=== PATIENT | female | born 1960 | race American Indian/Alaskan Native ===

== ENCOUNTER 2018-01-26 04:21 | Emergency (ER) | payer MEDICARE ==
[2018-01-26 05:03] LABS: Basophils # (Auto) 0.1 K/mm3 (0.0-0.1); Basophils % (Auto) 0.6 % (0.0-1.8); Eosinophils # (Auto) 0.1 K/mm3 (0.0-0.4); Eosinophils % (Auto) 0.8 % (0.0-4.3); Hematocrit 45.1 % (30.3-42.9); Hemoglobin 15.5 gm/dl (10.1-14.3); Lymphocytes # (Auto) 3.6 K/mm3 (1.2-5.4); Lymphocytes % (Auto) 41.4 % (13.4-35.0); Mean Corpuscular HGB Conc 34 % (30-34); Mean Corpuscular Hemoglobin 35 pg (28-32); Mean Corpuscular Volume 101 fl (79-97); Monocytes # (Auto) 0.7 K/mm3 (0.0-0.8); Monocytes % (Auto) 8.4 % (0.0-7.3); Platelet Count 195 K/mm3 (140-440); Red Blood Count 4.47 M/mm3 (3.65-5.03); Red Cell Distribution Width 14.7 % (13.2-15.2)
[2018-01-26 05:35] LABS: BUN/Creatinine Ratio 30; Blood Urea Nitrogen 15 mg/dL (7-17); Calcium 8.7 mg/dL (8.4-10.2); Hemolysis Index 35
--- NOTE | 2018-01-26 05:36 | XRay Report ---
FINAL REPORT EXAM: XR CHEST ROUTINE 2V HISTORY: ingestion TECHNIQUE: PA and lateral chest radiographs PRIORS: None. FINDINGS: No mediastinal shift. Cardiac silhouette is not enlarged. No pneumothorax, effusion, or focal pulmonary opacity. No radiodense foreign body. No acute skeletal finding. IMPRESSION: No acute pulmonary finding. Consider additional imaging for worsening/persistent symptoms.
[2018-01-26 06:14] LABS: Bilirubin,Urine NEG (Negative); Blood,Urine NEG (Negative); Color,Urine Yellow (Yellow); Protein,Urine <15 mg/dL mg/dL (Negative)
[2018-01-26 06:15] LABS: Amphetamine Screen,Urine PRESUMPTIVE NEGATIVE; Benzodiazepines Screen,Urine PRESUMPTIVE NEGATIVE; Cannabinoid Screen,Urine PRESUMPTIVE NEGATIVE; Cocaine Screen,Urine PRESUMPTIVE NEGATIVE; Methadone Screen,Urine PRESUMPTIVE NEGATIVE; Opiate Screen,Urine PRESUMPTIVE NEGATIVE
--- NOTE | 2018-01-26 06:38 | Emergency Department Report ---
ED Psych HPI - General Chief Complaint: Psych Stated Complaint: SUICIDAL Time Seen by Provider: 01/26/18 06:18 Source: EMS Mode of arrival: Ambulatory Limitations: No Limitations - History of Present Illness Initial Comments: Patient is a 57-year-old female presents emergency room with a intentional overdose with ammonia. Patient states that she accidentally drank took a drink of ammonia. Patient states she has been depressed lately. However at this time patient denies suicidal or homicidal ideations. Per patient's patient's states that she did state that she wanted to kill herself just prior to drinking the ammonia. Patient also states she knew the ammonia could hurt her but drank it anyway. Patient states she is unaware of the amount of ammonia ingested but states his only a mouthful. Patient complains of throat pain. Patient states her throat pain is a 4 out of 10. Patient states she drank 2 glasses of wine just prior to drinking the ammonia. MD Complaint: feels depressed, other -: Sudden Associated Psychiatric Symptoms: depression, suicidal ideation History of same: No Quality: intermittent Improves With: therapy Worsens With: achohol Context: recent alcohol abuse Associated Symptoms: denies other symptoms Treatments Prior to Arrival: placed on mental he - Related Data Home Medications Medication Instructions Recorded Confirmed Last Taken Bupropion HCl [buPROPion] 450 mg PO DAILY 11/18/14 02/28/16 11/17/14 Diazepam Tab [Valium] 2 mg PO DAILY 11/18/14 02/28/16 11/17/14 Dicyclomine [Bentyl] 20 mg PO QID 11/18/14 02/28/16 11/17/14 Trazodone HCl [traZODone] 300 mg PO QHS 11/18/14 02/28/16 11/17/14 Venlafaxine HCl [Venlafaxine ER] 150 mg PO QDAY 11/18/14 02/28/16 11/17/14 Previous Rx's Medication Instructions Recorded Last Taken Type Carvedilol [Coreg] 12.5 mg PO BID #60 tablet 11/21/14 Unknown Rx Pantoprazole [Protonix] 40 mg PO QDAY #30 tablet 11/21/14 Unknown Rx amLODIPine [Norvasc] 5 mg PO QDAY #30 tablet 11/21/14 Unknown Rx Triamter/Hctz 75-50 mg (Nf) 1 tab PO QDAY #30 tablet 02/28/16 Unknown Rx [Maxzide 75-50 mg] Allergies Allergy/AdvReac Type Severity Reaction Status Date / Time No Known Allergies Allergy Unverified 11/18/14 11:24 ED Review of Systems ROS: Stated complaint: SUICIDAL Other details as noted in HPI Constitutional: denies: chills, fever Eyes: denies: eye pain, eye discharge, vision change ENT: denies: ear pain, throat pain Respiratory: denies: cough, shortness of breath, wheezing Cardiovascular: denies: chest pain, palpitations Endocrine: no symptoms reported Gastrointestinal: denies: abdominal pain, nausea, diarrhea Genitourinary: denies: urgency, dysuria, discharge Musculoskeletal: denies: back pain, joint swelling, arthralgia Skin: denies: rash, lesions Neurological: denies: headache, weakness, paresthesias Psychiatric: denies: anxiety, depression Hematological/Lymphatic: denies: easy bleeding, easy bruising ED Past Medical Hx - Past Medical History Previous Medical History?: Yes Hx Hypertension: Yes Hx Congestive Heart Failure: No Hx Liver Disease: Yes (hepatitis C) Hx Psychiatric Treatment: Yes (depression) Hx Asthma: No - Surgical History Past Surgical History?: Yes Additional Surgical History: hysterectomy - Family History Family history: no significant - Social History Smoking Status: Current Every Day Smoker Substance Use Type: Alcohol - Medications Home Medications: Home Medications Medication Instructions Recorded Confirmed Last Taken Type Bupropion HCl [buPROPion] 450 mg PO DAILY 11/18/14 02/28/16 11/17/14 History Diazepam Tab [Valium] 2 mg PO DAILY 11/18/14 02/28/16 11/17/14 History Dicyclomine [Bentyl] 20 mg PO QID 11/18/14 02/28/16 11/17/14 History Trazodone HCl [traZODone] 300 mg PO QHS 11/18/14 02/28/16 11/17/14 History Venlafaxine HCl [Venlafaxine ER] 150 mg PO QDAY 11/18/14 02/28/16 11/17/14 History Carvedilol [Coreg] 12.5 mg PO BID #60 tablet 11/21/14 02/28/16 Unknown Rx Pantoprazole [Protonix] 40 mg PO QDAY #30 tablet 11/21/14 02/28/16 Unknown Rx amLODIPine [Norvasc] 5 mg PO QDAY #30 tablet 11/21/14 02/28/16 Unknown Rx Triamter/Hctz 75-50 mg (Nf) 1 tab PO QDAY #30 tablet 02/28/16 Unknown Rx [Maxzide 75-50 mg] ED Physical Exam - General Limitations: No Limitations General appearance: alert, in no apparent distress - Head Head exam: Present: atraumatic, normocephalic - Eye Eye exam: Present: normal appearance - ENT ENT exam: Present: mucous membranes moist - Neck Neck exam: Present: normal inspection - Respiratory Respiratory exam: Present: normal lung sounds bilaterally. Absent: respiratory distress - Cardiovascular Cardiovascular Exam: Present: regular rate, normal rhythm. Absent: systolic murmur, diastolic murmur, rubs, gallop - GI/Abdominal GI/Abdominal exam: Present: soft, normal bowel sounds - Extremities Exam Extremities exam: Present: normal inspection - Back Exam Back exam: Present: normal inspection - Neurological Exam Neurological exam: Present: alert, oriented X3 - Psychiatric Psychiatric exam: Present: depressed - Skin Skin exam: Present: warm, dry, intact, normal color. Absent: rash ED Course Vital Signs 01/26/18 04:35 Temperature 98.7 F Pulse Rate 103 H Respiratory 17 Rate Blood Pressure 176/76 O2 Sat by Pulse 99 Oximetry - Reevaluation(s) Reevaluation #1: BRYNNSHAHZAD CANDELARIO Female : 1960 MedRec# [id number] 01/26/18 07:01 - Nurse Note by RUTH LAZAR Acct Num: [id number] : 1960 Patient Age: 57 Call Poison control, spoke with Kareem. Advised to do PO challenge. Initialized on 01/26/18 07:01 - END OF NOTE Above note reviewed from poison control. 01/26/18 07:10 ED Medical Decision Making - Lab Data Result diagrams: 01/26/18 04:50 01/26/18 04:50 - Medical Decision Making We'll medically clear patient and prepare patient for transport to a psychiatric facility. 1013 signed. - Differential Diagnosis suicide attempt. Depression. Anxiety. Alcohol abuse. Critical care attestation.: If time is entered above; I have spent that time in minutes in the direct care of this critically ill patient, excluding procedure time. ED Disposition Condition: Stable Referrals: MEGHANA THAO MD [Primary Care Provider] - 3-5 Days
[2018-01-26] MEDS ORDERED: NORVASC PO ONE (11:53)
--- NOTE | 2018-01-26 13:07 | Consultation ---
History of Present Illness - Reason for Consult Consult date: 01/26/18 Reason for consult: Mental Health Evaluation Requesting physician: NARCISO WHITTINGTON III - Chief Complaint Chief complaint: "I didn't mean it" - History of Present Psychiatric Illness 57-year-old female presents emergency room with a intentional overdose with ammonia. Today the patient is calm and cooperative during the assessment. She stated that she accidentally consumed the ammonia. Her answers to questions reference drinking ammonia were vague. She stated, "I want to go home." She did state having a hx of depression and see a psychiatrist. She stated taking antidepressants, but could not name them. Per the ER note, the patient's stated that the she meant to consume the ammonia. She stated feeling sad and depressed prior to her admission to the hospital. She denies SI/HI's and AVH's. She denies a poor appetite and erratic sleep. She denies recreational drug use and alcohol consumption (etoh). Her alcohol serum was 0.28 on admission. Medications and Allergies Allergies Allergy/AdvReac Type Severity Reaction Status Date / Time No Known Allergies Allergy Unverified 11/18/14 11:24 Home Medications Medication Instructions Recorded Confirmed Last Taken Type Bupropion HCl [buPROPion] 450 mg PO DAILY 11/18/14 01/26/18 2 Days Ago History ~01/24/18 450 MG Dicyclomine [Bentyl] 20 mg PO QID 11/18/14 01/26/18 2 Days Ago History ~01/24/18 20 Trazodone HCl [traZODone] 300 mg PO QHS 11/18/14 01/26/18 2 Days Ago History ~01/24/18 300 Venlafaxine HCl [Venlafaxine ER] 150 mg PO QDAY 11/18/14 01/26/18 2 Days Ago History ~01/24/18 1 Carvedilol [Coreg] 12.5 mg PO BID #60 tablet 11/21/14 01/26/18 2 Days Ago Rx ~01/24/18 12.5 MG Pantoprazole [Protonix] 40 mg PO QDAY #30 tablet 11/21/14 01/26/18 2 Days Ago Rx ~01/24/18 40 amLODIPine [Norvasc] 5 mg PO QDAY #30 tablet 11/21/14 01/26/18 2 Days Ago Rx ~01/24/18 5 Triamter/Hctz 75-50 mg (Nf) 1 tab PO QDAY #30 tablet 02/28/16 01/26/18 2 Days Ago Rx [Maxzide 75-50 mg] ~01/24/18 1 Past psychiatric history - Past Medical History Past Medical History: hypertension, other (Hep C) Past Surgical History: hysterectomy - past Psychiatric treatment and history Psych: Depression psychiatric treatment history: Seen outpatient for depression. She denies a fam psy hx. - Social History Social history: lives with family Mental Status Exam - Vital signs Last Vital Signs Temp 97.8 F 01/26/18 11:46 Pulse 97 H 01/26/18 11:46 Resp 18 01/26/18 11:46 BP 177/77 01/26/18 11:46 Pulse Ox 98 01/26/18 11:46 - Exam Narrative exam: MSE: Appearance: calm Behavior: regular eye contact Speech: regular rate and tone Mood: "okay" Affect: flat Thought Process: circumstantial Thought Content: denies SI/HI's and AVH's Motor Activity: sitting up in bed Cognition: A/O x3 Insight: variable Judgment: poor Results Result Diagrams: 01/26/18 04:50 01/26/18 04:50 Abnormal lab results 01/26/18 01/26/18 01/26/18 Range/Units 04:50 04:50 04:50 Hgb (10.1-14.3) gm/dl Hct (30.3-42.9) % MCV (79-97) fl MCH (28-32) pg Lymph % (Auto) (13.4-35.0) % Nash % (Auto) (0.0-7.3) % Creatinine 0.5 L (0.7-1.2) mg/dL Glucose 102 H (65-100) mg/dL Salicylates < 0.3 L (2.8-20.0) mg/dL Acetaminophen < 5.0 L (10.0-30.0) ug/mL Plasma/Serum Alcohol (0-0.07) % 01/26/18 01/26/18 Range/Units 04:50 04:50 Hgb 15.5 H (10.1-14.3) gm/dl Hct 45.1 H (30.3-42.9) % MCV 101 H (79-97) fl MCH 35 H (28-32) pg Lymph % (Auto) 41.4 H (13.4-35.0) % Nash % (Auto) 8.4 H (0.0-7.3) % Creatinine (0.7-1.2) mg/dL Glucose (65-100) mg/dL Salicylates (2.8-20.0) mg/dL Acetaminophen (10.0-30.0) ug/mL Plasma/Serum Alcohol 0.28 H (0-0.07) % All other labs normal. Assessment and Plan Assessment and plan: Impression: MDD, Recurrent, Severe Type. Alcohol Intoxication on admission. Alcohol Use DO. Today the patient is calm and cooperative during the assessment. The patient consumed ammonia intentionally. The patient minimizes her actions. DDx: R/O Bipolar DO Recommendation/Plan: Continue 1013 with placement to [facility] today.
[2018-01-26 14:36] VITALS: BP 168/60
== END 2018-01-26 14:55 ==
LOC: EEVIPCON 04:21 → ED 04:21
DX: F32.9 Major depressive disorder, single episode, unspecified (principal); I10 Essential (primary) hypertension; Z86.19 Personal history of other infectious and parasitic diseases; Z90.710 Acquired absence of both cervix and uterus; F17.200 Nicotine dependence, unspecified, uncomplicated
CPT/HCPCS: 36415; 71046; 80048; 80307; 81001; 84703; 85025; 99284; G0480; 80320

== ENCOUNTER 2018-12-18 10:09 | Emergency (ER) | payer MEDICARE ==
--- NOTE | 2018-12-18 10:33 | Cat Scan Report ---
FINAL REPORT EXAM: CT HEAD/BRAIN WO CON HISTORY: neuro deficits < 6hrs or sx present upon awakening TECHNIQUE: CT of the Head without IV contrast. PRIORS: None currently available. FINDINGS: There is no evidence for acute ischemia. There is no hemorrhage. There is no midline shift. There is no hydrocephalus. There is no mass. Age appropriate mora-white matter attenuation is noted. There is no calvarial fracture. The temporal bones demonstrate aerated mastoid air cells. The middle ears appear unremarkable. Paranasal sinuses are unremarkable. Globes are intact. IMPRESSION: No acute intracranial findings.
[2018-12-18 10:36] LABS: Basophils % (Auto) 0.5 % (0.0-1.8); Eosinophils # (Auto) 0.1 K/mm3 (0.0-0.4); Eosinophils % (Auto) 1.2 % (0.0-4.3); Hematocrit 45.3 % (30.3-42.9); Hemoglobin 15.3 gm/dl (10.1-14.3); Lymphocytes % (Auto) 23.9 % (13.4-35.0); Mean Corpuscular HGB Conc 34 % (30-34); Mean Corpuscular Volume 107 fl (79-97); Monocytes # (Auto) 0.9 K/mm3 (0.0-0.8); Monocytes % (Auto) 10.9 % (0.0-7.3); Platelet Count 153 K/mm3 (140-440); Red Blood Count 4.25 M/mm3 (3.65-5.03); Red Cell Distribution Width 15.4 % (13.2-15.2)
[2018-12-18 10:47] LABS: INR 0.95 (0.87-1.13)
[2018-12-18 10:48] LABS: Partial Thromboplastin Time 23.2 Sec. (24.2-36.6); Thrombin Time 16.5 Sec. (15.1-19.6)
[2018-12-18 10:51] LABS: BUN/Creatinine Ratio 16; Blood Urea Nitrogen 14 mg/dL (7-17); Calcium 9.8 mg/dL (8.4-10.2); Hemolysis Index 184
[2018-12-18 11:10] LABS: Creatine Kinase MB 6.1 ng/mL (0.0-4.0)
--- NOTE | 2018-12-18 11:41 | Emergency Department Report ---
- General Chief complaint: Neuro Symptoms/Deficit Stated complaint: POSS STROKE Time Seen by Provider: 12/18/18 10:28 Source: family, old records reviewed (10/2014 cardiac cath reviewed) Mode of arrival: Ambulatory Limitations: No Limitations - History of Present Illness Initial comments: 58-year-old female with past medical history of hypertension, hep C, and depression presents to the hospital with complaints difficulty ambulating and bilateral leg weakness. Patient states she woke up this morning that her whole body shaking. She tried to ambulate to the bathroom her legs were wobbly and she had difficulty. She fell and had difficulty getting up. Started speech was reported by triage nurse. Patient states that her speech is normal. Patient had several teeth pulled by the dentist last week and states she was only prescribed Tylenol for pain. She was also prescribed a medication for sleep which she states she is not currently taken. She denies daily alcohol use was states her only drank on weekends and she admits to alcohol intake last night. She denies drug use and does smoke cigarettes. She does not take aspirin daily. She denies any headache, chest pain, shortness of breath, nausea, vomiting, or diarrhea. She does have a primary care doctor. Severity scale (0 -10): 0 - Related Data Home Medications Medication Instructions Recorded Confirmed Last Taken Dicyclomine [Bentyl] 20 mg PO QID 11/18/14 01/26/18 2 Days Ago ~01/24/18 20 Trazodone HCl [traZODone] 300 mg PO QHS 11/18/14 01/26/18 2 Days Ago ~01/24/18 300 Venlafaxine HCl [Venlafaxine ER] 150 mg PO QDAY 11/18/14 01/26/18 2 Days Ago ~01/24/18 1 buPROPion HCl [buPROPion] 450 mg PO DAILY 11/18/14 01/26/18 2 Days Ago ~01/24/18 450 MG Previous Rx's Medication Instructions Recorded Last Taken Type Carvedilol [Coreg] 12.5 mg PO BID #60 tablet 11/21/14 2 Days Ago Rx ~01/24/18 12.5 MG Pantoprazole [Protonix] 40 mg PO QDAY #30 tablet 11/21/14 2 Days Ago Rx ~01/24/18 40 amLODIPine [Norvasc] 5 mg PO QDAY #30 tablet 11/21/14 2 Days Ago Rx ~01/24/18 5 Triamter/Hctz 75-50 mg (Nf) 1 tab PO QDAY #30 tablet 02/28/16 2 Days Ago Rx [Maxzide 75-50 mg] ~01/24/18 1 Allergies Allergy/AdvReac Type Severity Reaction Status Date / Time No Known Allergies Allergy Unverified 11/18/14 11:24 ED Review of Systems ROS: Stated complaint: POSS STROKE Other details as noted in HPI Comment: All other systems reviewed and negative ED Past Medical Hx - Past Medical History Hx Hypertension: Yes Hx Congestive Heart Failure: No Hx Liver Disease: Yes (hepatitis C) Hx Psychiatric Treatment: Yes (depression) Hx Asthma: No - Surgical History Additional Surgical History: hysterectomy - Social History Smoking Status: Current Every Day Smoker Substance Use Type: Alcohol - Medications Home Medications: Home Medications Medication Instructions Recorded Confirmed Last Taken Type Dicyclomine [Bentyl] 20 mg PO QID 11/18/14 01/26/18 2 Days Ago History ~01/24/18 20 Trazodone HCl [traZODone] 300 mg PO QHS 11/18/14 01/26/18 2 Days Ago History ~01/24/18 300 Venlafaxine HCl [Venlafaxine ER] 150 mg PO QDAY 11/18/14 01/26/18 2 Days Ago History ~01/24/18 1 buPROPion HCl [buPROPion] 450 mg PO DAILY 11/18/14 01/26/18 2 Days Ago History ~01/24/18 450 MG Carvedilol [Coreg] 12.5 mg PO BID #60 tablet 11/21/14 01/26/18 2 Days Ago Rx ~01/24/18 12.5 MG Pantoprazole [Protonix] 40 mg PO QDAY #30 tablet 11/21/14 01/26/18 2 Days Ago Rx ~01/24/18 40 amLODIPine [Norvasc] 5 mg PO QDAY #30 tablet 11/21/14 01/26/18 2 Days Ago Rx ~01/24/18 5 Triamter/Hctz 75-50 mg (Nf) 1 tab PO QDAY #30 tablet 02/28/16 01/26/18 2 Days Ago Rx [Maxzide 75-50 mg] ~01/24/18 1 ED Physical Exam - General Limitations: No Limitations - Other Other exam information: General: No limitations, patient is alert in no acute distress Head exam: Atraumatic, normocephalic Eyes exam: Normal appearance, pupils equal reactive to light, extraocular movements intact ENT: Moist mucous membrane, normal oropharynx Neck exam: Normal inspection, full range of motion, no meningismus nontender Respiratory exam: Clear to auscultation bilateral, no wheezes, rales, crackles Cardiovascular: Normal rate and rhythm, normal heart sounds Abdomen: Soft, nondistended, and nontender, with normal bowel sounds, no rebound, or guarding Extremity: Full range of motion normal inspection no deformity Back: Normal Inspection, full range of motion, no tenderness Neurologic: Alert, oriented x3, cranial nerves intact, no motor or sensory deficit, [id number]/attack. Mild tremor noted Psychiatric: normal affect, normal mood Skin: Warm, dry, intact - Assessment Assessment Interval: Baseline - Level of Consciousness 1a. Level of Consciousness: alert/keenly responsive - LOC Questions 1b. LOC Questions: answers both correctly - LOC Command 1c. LOC Commands: performs tasks correctly - Best Gaze 2. Best Gaze: normal - Visual 3. Visual: no visual loss - Facial Palsy 4. Facial Palsy: normal symmetrical movement - Motor Arm 5b. Motor Arm Right: no drift 5a. Motor Arm Left: no drift - Motor Leg 6b. Motor Leg Right: no drift 6a. Motor Leg Left: no drift - Limb Ataxia 7. Limb Ataxia: absent - Sensory 8. Sensory: normal - Best Language 9. Best Language: no aphasia - Dysarthria 10. Dysarthria: normal - Extinction and Inattention 11. Extinction/Inattention: no abnormality - Scoring Total Score: 0 Stroke Severity: No Stroke Symptoms ED Course Vital Signs 12/18/18 12/18/18 12/18/18 10:14 10:45 11:00 Temperature 98.1 F Pulse Rate 74 74 70 Respiratory 21 19 14 Rate Blood Pressure 201/68 188/67 Blood Pressure 201/68 [Left] O2 Sat by Pulse 99 99 98 Oximetry 12/18/18 12/18/18 12/18/18 11:15 11:30 11:45 Temperature Pulse Rate 72 71 71 Respiratory 19 19 16 Rate Blood Pressure 196/75 161/63 188/67 Blood Pressure [Left] O2 Sat by Pulse 99 99 99 Oximetry 12/18/18 12/18/18 12/18/18 12:01 12:15 13:01 Temperature Pulse Rate 74 70 75 Respiratory 21 15 17 Rate Blood Pressure 188/67 188/67 178/104 Blood Pressure [Left] O2 Sat by Pulse 98 99 98 Oximetry 12/18/18 12/18/18 12/18/18 13:15 13:30 14:01 Temperature Pulse Rate 75 77 77 Respiratory 19 19 19 Rate Blood Pressure 171/117 142/64 142/64 Blood Pressure [Left] O2 Sat by Pulse 97 98 99 Oximetry 12/18/18 15:30 Temperature 98.1 F Pulse Rate 68 Respiratory 16 Rate Blood Pressure Blood Pressure 143/53 [Left] O2 Sat by Pulse 99 Oximetry ED Medical Decision Making - Lab Data Result diagrams: 12/18/18 10:26 12/18/18 10:26 Lab Results 12/18/18 12/18/18 12/18/18 Range/Units 10:26 10:26 10:26 WBC 8.3 (4.5-11.0) K/mm3 RBC 4.25 (3.65-5.03) M/mm3 Hgb 15.3 H (10.1-14.3) gm/dl Hct 45.3 H (30.3-42.9) % MCV 107 H (79-97) fl MCH 36 H (28-32) pg MCHC 34 (30-34) % RDW 15.4 H (13.2-15.2) % Plt Count 153 (140-440) K/mm3 Lymph % (Auto) 23.9 (13.4-35.0) % [place] % (Auto) 10.9 H (0.0-7.3) % Eos % (Auto) 1.2 (0.0-4.3) % Baso % (Auto) 0.5 (0.0-1.8) % Lymph # 2.0 (1.2-5.4) K/mm3 [place] # 0.9 H (0.0-0.8) K/mm3 Eos # 0.1 (0.0-0.4) K/mm3 Baso # 0.0 (0.0-0.1) K/mm3 Seg Neutrophils % 63.5 (40.0-70.0) % Seg Neutrophils # 5.3 (1.8-7.7) K/mm3 PT 13.2 (12.2-14.9) Sec. INR 0.95 (0.87-1.13) APTT 23.2 L (24.2-36.6) Sec. Thrombin Time 16.5 (15.1-19.6) Sec. Sodium 134 L (137-145) mmol/L Potassium 4.2 (3.6-5.0) mmol/L Chloride 93.0 L (98-107) mmol/L Carbon Dioxide 26 (22-30) mmol/L Anion Gap 19 mmol/L BUN 14 (7-17) mg/dL Creatinine 0.9 (0.7-1.2) mg/dL Estimated GFR > 60 ml/min BUN/Creatinine Ratio 16 % Glucose 130 H (65-100) mg/dL POC Glucose (70-105) Calcium 9.8 (8.4-10.2) mg/dL Magnesium (1.7-2.3) mg/dL Total Creatine Kinase (30-135) units/L CK-MB (CK-2) (0.0-4.0) ng/mL CK-MB (CK-2) Rel Index (0-4) Troponin T < 0.010 (0.00-0.029) ng/mL Urine Color (Yellow) Urine Turbidity (Clear) Urine pH (5.0-7.0) Ur Specific [place] (1.003-1.030) Urine Protein (Negative) mg/dL Urine Glucose (UA) (Negative) mg/dL Urine Ketones (Negative) mg/dL Urine Blood (Negative) Urine Nitrite (Negative) Urine Bilirubin (Negative) Urine Urobilinogen (<2.0) mg/dL Ur Leukocyte Esterase (Negative) Urine WBC (Auto) (0.0-6.0) /HPF Urine RBC (Auto) (0.0-6.0) /HPF U Epithel Cells (Auto) (0-13.0) /HPF Urine Bacteria (Auto) (Negative) /HPF Urine Mucus /HPF Salicylates (2.8-20.0) mg/dL Urine Opiates Screen Urine Methadone Screen Acetaminophen (10.0-30.0) ug/mL Ur Barbiturates Screen Ur Phencyclidine Scrn Ur Amphetamines Screen U Benzodiazepines Scrn Urine Cocaine Screen U Marijuana (THC) Screen Drugs of Abuse Note Plasma/Serum Alcohol (0-0.07) % 12/18/18 12/18/18 12/18/18 Range/Units 10:26 10:26 10:26 WBC (4.5-11.0) K/mm3 RBC (3.65-5.03) M/mm3 Hgb (10.1-14.3) gm/dl Hct (30.3-42.9) % MCV (79-97) fl MCH (28-32) pg MCHC (30-34) % RDW (13.2-15.2) % Plt Count (140-440) K/mm3 Lymph % (Auto) (13.4-35.0) % [place] % (Auto) (0.0-7.3) % Eos % (Auto) (0.0-4.3) % Baso % (Auto) (0.0-1.8) % Lymph # (1.2-5.4) K/mm3 [place] # (0.0-0.8) K/mm3 Eos # (0.0-0.4) K/mm3 Baso # (0.0-0.1) K/mm3 Seg Neutrophils % (40.0-70.0) % Seg Neutrophils # (1.8-7.7) K/mm3 PT (12.2-14.9) Sec. INR (0.87-1.13) APTT (24.2-36.6) Sec. Thrombin Time (15.1-19.6) Sec. Sodium (137-145) mmol/L Potassium (3.6-5.0) mmol/L Chloride (98-107) mmol/L Carbon Dioxide (22-30) mmol/L Anion Gap mmol/L BUN (7-17) mg/dL Creatinine (0.7-1.2) mg/dL Estimated GFR ml/min BUN/Creatinine Ratio % Glucose (65-100) mg/dL POC Glucose (70-105) Calcium (8.4-10.2) mg/dL Magnesium 2.00 (1.7-2.3) mg/dL Total Creatine Kinase (30-135) units/L CK-MB (CK-2) (0.0-4.0) ng/mL CK-MB (CK-2) Rel Index (0-4) Troponin T (0.00-0.029) ng/mL Urine Color (Yellow) Urine Turbidity (Clear) Urine pH (5.0-7.0) Ur Specific [place] (1.003-1.030) Urine Protein (Negative) mg/dL Urine Glucose (UA) (Negative) mg/dL Urine Ketones (Negative) mg/dL Urine Blood (Negative) Urine Nitrite (Negative) Urine Bilirubin (Negative) Urine Urobilinogen (<2.0) mg/dL Ur Leukocyte Esterase (Negative) Urine WBC (Auto) (0.0-6.0) /HPF Urine RBC (Auto) (0.0-6.0) /HPF U Epithel Cells (Auto) (0-13.0) /HPF Urine Bacteria (Auto) (Negative) /HPF Urine Mucus /HPF Salicylates < 0.3 L (2.8-20.0) mg/dL Urine Opiates Screen Urine Methadone Screen Acetaminophen < 5.0 L (10.0-30.0) ug/mL Ur Barbiturates Screen Ur Phencyclidine Scrn Ur Amphetamines Screen U Benzodiazepines Scrn Urine Cocaine Screen U Marijuana (THC) Screen Drugs of Abuse Note Plasma/Serum Alcohol (0-0.07) % 12/18/18 12/18/18 12/18/18 Range/Units 10:26 10:26 11:01 WBC (4.5-11.0) K/mm3 RBC (3.65-5.03) M/mm3 Hgb (10.1-14.3) gm/dl Hct (30.3-42.9) % MCV (79-97) fl MCH (28-32) pg MCHC (30-34) % RDW (13.2-15.2) % Plt Count (140-440) K/mm3 Lymph % (Auto) (13.4-35.0) % [place] % (Auto) (0.0-7.3) % Eos % (Auto) (0.0-4.3) % Baso % (Auto) (0.0-1.8) % Lymph # (1.2-5.4) K/mm3 [place] # (0.0-0.8) K/mm3 Eos # (0.0-0.4) K/mm3 Baso # (0.0-0.1) K/mm3 Seg Neutrophils % (40.0-70.0) % Seg Neutrophils # (1.8-7.7) K/mm3 PT (12.2-14.9) Sec. INR (0.87-1.13) APTT (24.2-36.6) Sec. Thrombin Time (15.1-19.6) Sec. Sodium (137-145) mmol/L Potassium (3.6-5.0) mmol/L Chloride (98-107) mmol/L Carbon Dioxide (22-30) mmol/L Anion Gap mmol/L BUN (7-17) mg/dL Creatinine (0.7-1.2) mg/dL Estimated GFR ml/min BUN/Creatinine Ratio % Glucose (65-100) mg/dL POC Glucose 112 H (70-105) Calcium (8.4-10.2) mg/dL Magnesium (1.7-2.3) mg/dL Total Creatine Kinase 430 H (30-135) units/L CK-MB (CK-2) 6.1 H (0.0-4.0) ng/mL CK-MB (CK-2) Rel Index 1.4 (0-4) Troponin T (0.00-0.029) ng/mL Urine Color (Yellow) Urine Turbidity (Clear) Urine pH (5.0-7.0) Ur Specific [place] (1.003-1.030) Urine Protein (Negative) mg/dL Urine Glucose (UA) (Negative) mg/dL Urine Ketones (Negative) mg/dL Urine Blood (Negative) Urine Nitrite (Negative) Urine Bilirubin (Negative) Urine Urobilinogen (<2.0) mg/dL Ur Leukocyte Esterase (Negative) Urine WBC (Auto) (0.0-6.0) /HPF Urine RBC (Auto) (0.0-6.0) /HPF U Epithel Cells (Auto) (0-13.0) /HPF Urine Bacteria (Auto) (Negative) /HPF Urine Mucus /HPF Salicylates (2.8-20.0) mg/dL Urine Opiates Screen Urine Methadone Screen Acetaminophen (10.0-30.0) ug/mL Ur Barbiturates Screen Ur Phencyclidine Scrn Ur Amphetamines Screen U Benzodiazepines Scrn Urine Cocaine Screen U Marijuana (THC) Screen Drugs of Abuse Note Plasma/Serum Alcohol < 0.01 (0-0.07) % 12/18/18 12/18/18 Range/Units 11:05 11:05 WBC (4.5-11.0) K/mm3 RBC (3.65-5.03) M/mm3 Hgb (10.1-14.3) gm/dl Hct (30.3-42.9) % MCV (79-97) fl MCH (28-32) pg MCHC (30-34) % RDW (13.2-15.2) % Plt Count (140-440) K/mm3 Lymph % (Auto) (13.4-35.0) % [place] % (Auto) (0.0-7.3) % Eos % (Auto) (0.0-4.3) % Baso % (Auto) (0.0-1.8) % Lymph # (1.2-5.4) K/mm3 [place] # (0.0-0.8) K/mm3 Eos # (0.0-0.4) K/mm3 Baso # (0.0-0.1) K/mm3 Seg Neutrophils % (40.0-70.0) % Seg Neutrophils # (1.8-7.7) K/mm3 PT (12.2-14.9) Sec. INR (0.87-1.13) APTT (24.2-36.6) Sec. Thrombin Time (15.1-19.6) Sec. Sodium (137-145) mmol/L Potassium (3.6-5.0) mmol/L Chloride (98-107) mmol/L Carbon Dioxide (22-30) mmol/L Anion Gap mmol/L BUN (7-17) mg/dL Creatinine (0.7-1.2) mg/dL Estimated GFR ml/min BUN/Creatinine Ratio % Glucose (65-100) mg/dL POC Glucose (70-105) Calcium (8.4-10.2) mg/dL Magnesium (1.7-2.3) mg/dL Total Creatine Kinase (30-135) units/L CK-MB (CK-2) (0.0-4.0) ng/mL CK-MB (CK-2) Rel Index (0-4) Troponin T (0.00-0.029) ng/mL Urine Color Yellow (Yellow) Urine Turbidity Clear (Clear) Urine pH 5.0 (5.0-7.0) Ur Specific [place] 1.008 (1.003-1.030) Urine Protein <15 mg/dl (Negative) mg/dL Urine Glucose (UA) Neg (Negative) mg/dL Urine Ketones Neg (Negative) mg/dL Urine Blood Neg (Negative) Urine Nitrite Neg (Negative) Urine Bilirubin Neg (Negative) Urine Urobilinogen < 2.0 (<2.0) mg/dL Ur Leukocyte Esterase Neg (Negative) Urine WBC (Auto) 1.0 (0.0-6.0) /HPF Urine RBC (Auto) 1.0 (0.0-6.0) /HPF U Epithel Cells (Auto) 1.0 (0-13.0) /HPF Urine Bacteria (Auto) 1+ (Negative) /HPF Urine Mucus Few /HPF Salicylates (2.8-20.0) mg/dL Urine Opiates Screen Presumptive positive Urine Methadone Screen Presumptive negative Acetaminophen (10.0-30.0) ug/mL Ur Barbiturates Screen Presumptive negative Ur Phencyclidine Scrn Presumptive negative Ur Amphetamines Screen Presumptive positive U Benzodiazepines Scrn Presumptive positive Urine Cocaine Screen Presumptive negative U Marijuana (THC) Screen Presumptive negative Drugs of Abuse Note Disclamer Plasma/Serum Alcohol (0-0.07) % - EKG Data -: EKG Interpreted by Fl EKG shows normal: sinus rhythm, axis (qrs 47), QRS complexes (qrsd 111), ST-T waves (no stemi,lvh) Rate: normal - Radiology Data Radiology results: report reviewed ct head: naf - Medical Decision Making Non focal exam generalized weakness with ambulation NS initiated pt denies daily etoh abuse Patient admits to drinking last night. UDS positive for amphetamines, benzos, and opiates. After 1 L normal saline patient's gait is steady and she will be discharged home - Differential Diagnosis infection, encephalopathy, generalized weakness, CVA, CAD Critical Care Time: No Critical care attestation.: If time is entered above; I have spent that time in minutes in the direct care of this critically ill patient, excluding procedure time. ED Disposition Clinical Impression: Generalized weakness Disposition: DC-01 TO HOME OR SELFCARE Is pt being admited?: No Does the pt Need Aspirin: No Condition: Stable Instructions: Weakness (ED) Additional Instructions: Take the medication as prescribed. Follow up with your doctor or the clinic/doctor provided. Return if symptoms worsen as indicated by your discharge instructions Referrals: CHANDRAKANT WEI JR, MD [Primary Care Provider] - 3-5 Days Time of Disposition: 15:56
[2018-12-18] MEDS ORDERED: NACL 0.9% 1000 ML 1,000 ML IV ONE (11:42)
[2018-12-18 11:49] LABS: Cannabinoid Screen,Urine PRESUMPTIVE NEGATIVE; Cocaine Screen,Urine PRESUMPTIVE NEGATIVE; Methadone Screen,Urine PRESUMPTIVE NEGATIVE
[2018-12-18 12:01] LABS: Amphetamine Screen,Urine PRESUMPTIVE POSITIVE; Benzodiazepines Screen,Urine PRESUMPTIVE POSITIVE; Opiate Screen,Urine PRESUMPTIVE POSITIVE
[2018-12-18 12:55] LABS: Bacteria,Urine 1+ /HPF (Negative); Bilirubin,Urine NEG (Negative); Blood,Urine NEG (Negative); Color,Urine Yellow (Yellow); Mucus,Urine FEW /HPF; Protein,Urine <15 mg/dL mg/dL (Negative); Urobilinogen,Urine < 2.0 mg/dL (<2.0)
[2018-12-18] MEDS ORDERED: CATAPRES PO ONE (13:13)
[2018-12-18 15:31] VITALS: BP 143/53
== END 2018-12-18 16:35 | disposition home or self-care (01) ==
LOC: ED 10:09
DX: R53.1 Weakness (principal); F32.9 Major depressive disorder, single episode, unspecified; I10 Essential (primary) hypertension; F17.200 Nicotine dependence, unspecified, uncomplicated; Z86.19 Personal history of other infectious and parasitic diseases; Z90.710 Acquired absence of both cervix and uterus
CPT/HCPCS: 36415; 70450; 80048; 80307; 81001; 82550; 82553; 82962; 83735; 84484; 85025; 85610; 85670; 85730; 93005; 93010; 99285; G0480; J7030; 80320

== ENCOUNTER 2019-08-21 13:39 | Outpatient (CLI) | payer MEDICARE ==
--- NOTE | 2019-08-21 16:48 | Mammography Report ---
DIGITAL SCREENING MAMMOGRAM WITH CAD, 08/21/2019 INDICATION: Routine screening mammography. TECHNIQUE: Digital bilateral 2D mammography was obtained in the craniocaudal and mediolateral obliq ue projections. This examination was interpreted with the benefit of Computer-Aided Detection analysi s. COMPARISON: 09/06/2016 FINDINGS: Breast Density: The breasts are heterogeneously dense, which may obscure small masses. There is no evidence of dominant mass, suspicious calcifications or architectural distortion in eithe r breast. Bilateral benign calcifications which are mostly arterial. IMPRESSION: No mammographic evidence of malignancy. Follow up recommendation: Routine yearly BI-RADS Category 2: Benign. A "normal" or negative report should not discourage follow up or biopsy of a clinically significant f inding. A written summary of these findings will be mailed to the patient. The patient will be entered into a mammography reporting system which will generate a reminder letter for the patient's next appointmen t at the appropriate interval. The [employer] recommends yearly mammograms starting at age 40 and continuing as l dimas as a woman is in good health. Breast MRI is recommended for women with an approximate 20-25% or greater lifetime risk of breast cancer, including women with a strong family history of breast or ova arian cancer or who have been treated for Hodgkin's disease. Signer Name: Clemente Tan MD Signed: 08/21/2019 4:44 PM Workstation Name: [id number]
== END 2019-08-21 13:40 | disposition home or self-care (01) ==
LOC: MAMMO 13:39
PROVIDERS: ATTEND Nurse Practitioner Family
DX: Z12.31 Encounter for screening mammogram for malignant neoplasm of breast (principal); I10 Essential (primary) hypertension; Z90.710 Acquired absence of both cervix and uterus
CPT/HCPCS: 77067

== ENCOUNTER 2019-10-31 01:43 | Inpatient (IN) | payer MEDICARE ==
[2019-10-31] MEDS ORDERED: SODIUM CHLORIDE 0.9% 50 ML IVPB IV ONE (02:19)
[2019-10-31] MEDS ORDERED: ALTEPLASE 100 MG INJ KIT IV ONE ×2 (02:19)
--- NOTE | 2019-10-31 02:24 | Cat Scan Report ---
CT head/brain wo con INDICATION: neuro deficits <6hrs or sx present upon awakening. TECHNIQUE: All CT scans at this location are performed using CT dose reduction for ALARA by means of automated e xposure control. COMPARISON: 12/18/2018 FINDINGS: Ventricles are symmetrical and normal in size. No mass, hemorrhage or other acute abnormality. No maría nge since December. IMPRESSION: 1. No acute abnormalities. Signer Name: Ed Farrell MD Signed: 10/31/2019 2:20 AM Workstation Name: [id number]
--- NOTE | 2019-10-31 02:25 | Emergency Department Report ---
HPI - General Chief Complaint: Neuro Symptoms/Deficit Time Seen by Provider: 10/31/19 02:05 - HPI HPI: Room 8 The patient is a 59-year-old female presented with a chief complaint of left- sided weakness and dysarthria. The patient's pulse states that he last saw the patient walked at approximately 23:00 at [facility]. Shortly after the The patient stated she needed assistance standing up from a kneeling position as they were premature. The patient also had difficulty ambulating and required assistance from her spouse to get to the car. This pulse states he noticed that her speech was slightly slurred at that time. They drove home and the patient required assistance getting out of the car and into the home. When in the home spouse states the patient laid down but did not drink any of the Champagne his report. He states the patient then appeared to be shaking diffusely and then "went out." The spouse then picked the patient up and brought her to the emergency department. ED Past Medical Hx - Past Medical History Previous Medical History?: Yes Hx Hypertension: Yes Hx Liver Disease: Yes (hepatitis C) Hx Psychiatric Treatment: Yes (depression) - Surgical History Past Surgical History?: Yes Additional Surgical History: hysterectomy - Family History Family history: no significant - Social History Smoking Status: Current Every Day Smoker Substance Use Type: None (denies illicit drug use), Alcohol (occasional) - Medications Home Medications: Home Medications Medication Instructions Recorded Confirmed Last Taken Type Dicyclomine [Bentyl] 20 mg PO QID 11/18/14 01/26/18 2 Days Ago History ~01/24/18 20 Trazodone HCl [traZODone] 300 mg PO QHS 11/18/14 01/26/18 2 Days Ago History ~01/24/18 300 Venlafaxine HCl [Venlafaxine ER] 150 mg PO QDAY 11/18/14 01/26/18 2 Days Ago History ~01/24/18 1 buPROPion HCL [buPROPion] 450 mg PO DAILY 11/18/14 01/26/18 2 Days Ago History ~01/24/18 450 MG Pantoprazole [Protonix] 40 mg PO QDAY #30 tablet 11/21/14 01/26/18 2 Days Ago Rx ~01/24/18 40 amLODIPine 5 mg PO QDAY #30 tablet 11/21/14 01/26/18 2 Days Ago Rx ~01/24/18 5 carvediloL [Coreg] 12.5 mg PO BID #60 tablet 11/21/14 01/26/18 2 Days Ago Rx ~01/24/18 12.5 MG Triamter/Hctz 75-50 mg (Nf) 1 tab PO QDAY #30 tablet 02/28/16 01/26/18 2 Days Ago Rx [Maxzide 75-50 mg] ~01/24/18 1 ED Review of Systems ROS: Stated complaint: DIFFICULT WALKING,BLURRED VISION Other details as noted in HPI Constitutional: no symptoms reported Eyes: denies: eye pain ENT: denies: throat pain Respiratory: no symptoms reported Cardiovascular: denies: chest pain Endocrine: no symptoms reported Gastrointestinal: denies: abdominal pain Musculoskeletal: denies: back pain Neurological: weakness. denies: headache Physical Exam - Physical Exam Vital Signs: Vital Signs 10/31/19 01:54 Temperature 98.2 F Pulse Rate 78 Respiratory 18 Rate Blood Pressure 123/66 O2 Sat by Pulse 96 Oximetry Physical Exam: GENERAL: The patient is well-developed well-nourished female lying on stretcher not appearing to be in acute distress. Patient appears slow to respond HEENT: Normocephalic. Atraumatic. Extraocular motions are intact. Patient has moist mucous membranes. NECK: Supple. Trachea midline CHEST/LUNGS: Clear to auscultation. There is no respiratory distress noted. HEART/CARDIOVASCULAR: Regular. There is no tachycardia. There is no gallop rub or murmur. ABDOMEN: Abdomen is soft, nontender. Patient has normal bowel sounds. There is no abdominal distention. SKIN: There is no rash. There is no edema. There is no diaphoresis. NEURO: The patient is awake and oriented but groggy. The patient is coope rative. Cranial nerves II-12 grossly intact. Patient unable to keep left upper extremity elevated at 30 from bed for 5 seconds count without drifting but not hitting the bed. The patient has slightly dysarthric speech MUSCULOSKELETAL: There is no evidence of acute injury. ED Course Vital Signs 10/31/19 01:54 Temperature 98.2 F Pulse Rate 78 Respiratory 18 Rate Blood Pressure 123/66 O2 Sat by Pulse 96 Oximetry - Consultations Consultation #1: 10/31/19 03:03 Case discussed with telemetry neurologist who recommends administration of TPA. TPA has been ordered by the tele-neurologist in addition to CTAs of the brain and neck ED Medical Decision Making - Lab Data Result diagrams: 10/31/19 02:20 10/31/19 02:20 Laboratory Tests 10/31/19 10/31/19 10/31/19 01:59 02:20 02:20 WBC 5.8 RBC 3.82 Hgb 13.4 Hct 39.4 MCV 103 H MCH 35 H MCHC 34 RDW 15.3 H Plt Count 118 L Lymph % (Auto) 37.1 H [place] % (Auto) 6.5 Eos % (Auto) 2.2 Baso % (Auto) 0.6 Lymph # 2.1 [place] # 0.4 Eos # 0.1 Baso # 0.0 Seg Neutrophils % 53.6 Seg Neutrophils # 3.1 PT 13.7 INR 1.04 APTT 26.4 Thrombin Time 15.0 L Sodium Potassium Chloride Carbon Dioxide Anion Gap BUN Creatinine Estimated GFR BUN/Creatinine Ratio Glucose POC Glucose 102 Calcium Troponin T 10/31/19 02:20 WBC RBC Hgb Hct MCV MCH MCHC RDW Plt Count Lymph % (Auto) [place] % (Auto) Eos % (Auto) Baso % (Auto) Lymph # [place] # Eos # Baso # Seg Neutrophils % Seg Neutrophils # PT INR APTT Thrombin Time Sodium 137 Potassium 3.5 L Chloride 97.7 L Carbon Dioxide 25 Anion Gap 18 BUN 13 Creatinine 0.7 Estimated GFR > 60 BUN/Creatinine Ratio 19 Glucose 111 H POC Glucose Calcium 9.2 Troponin T < 0.010 - EKG Data -: EKG Interpreted by Tn EKG shows normal: sinus rhythm Rate: normal - EKG Data When compared to previous EKG there are: previous EKG unavailable Interpretation: nonspecific ST-T wave maría (T-wave inversion in lead aVL) - Radiology Data Radiology results: report reviewed (CT head), image reviewed (CT head) [facility] [address] [place] [address] Cat Scan Report Signed Patient: SHAHZAD SWAIN MR#: [id number] : 1960 Acct:[id number] Age/Sex: 59 / F ADM Date: 10/31/19 Loc: ED Attending Dr: Ordering Physician: ISRAEL HAMMER MD Date of Service: 10/31/19 Procedure(s): CT head/brain wo con Accession Number(s): [id number] cc: ISRAEL HAMMER MD CT head/brain wo con INDICATION: neuro deficits <6hrs or sx present upon awakening. TECHNIQUE: All CT scans at this location are performed using CT dose reduction for ALARA by means of automated exposure control. COMPARISON: 12/18/2018 FINDINGS: Ventricles are symmetrical and normal in size. No mass, hemorrhage or other acute abnormality. No change since December. IMPRESSION: 1. No acute abnormalities. Signer Name: Ed Farrell MD Signed: 10/31/2019 2:20 AM Workstation Name: [id number] Transcribed By: TM Dictated By: Ed Farrell MD Electronically Authenticated By: Ed Farrell MD Signed Date/Time: 10/31/19219 DD/ 6 TD/TT: - Differential Diagnosis CVA, seizure disorder, Erik's paralysis Critical care attestation.: If time is entered above; I have spent that time in minutes in the direct care of this critically ill patient, excluding procedure time. ED Disposition Clinical Impression: Stroke Disposition: DC-09 OP ADMIT IP TO THIS HOSP Is pt being admited?: Yes Does the pt Need Aspirin: No Condition: Fair
[2019-10-31 02:34] LABS: Basophils % (Auto) 0.6 % (0.0-1.8); Eosinophils # (Auto) 0.1 K/mm3 (0.0-0.4); Eosinophils % (Auto) 2.2 % (0.0-4.3); Hematocrit 39.4 % (30.3-42.9); Hemoglobin 13.4 gm/dl (10.1-14.3); Lymphocytes # (Auto) 2.1 K/mm3 (1.2-5.4); Lymphocytes % (Auto) 37.1 % (13.4-35.0); Mean Corpuscular HGB Conc 34 % (30-34); Mean Corpuscular Volume 103 fl (79-97); Monocytes # (Auto) 0.4 K/mm3 (0.0-0.8); Monocytes % (Auto) 6.5 % (0.0-7.3); Platelet Count 118 K/mm3 (140-440); Red Blood Count 3.82 M/mm3 (3.65-5.03); Red Cell Distribution Width 15.3 % (13.2-15.2)
[2019-10-31 02:50] LABS: BUN/Creatinine Ratio 19; Blood Urea Nitrogen 13 mg/dL (7-17); Calcium 9.2 mg/dL (8.4-10.2); Hemolysis Index 8
[2019-10-31 02:52] LABS: INR 1.04 (0.87-1.13)
[2019-10-31 02:53] LABS: Partial Thromboplastin Time 26.4 Sec. (24.2-36.6)
--- NOTE | 2019-10-31 02:59 | Emergency Department Report ---
ED Neuro Deficit HPI - General Chief Complaint: Neuro Symptoms/Deficit Stated Complaint: DIFFICULT WALKING,BLURRED VISION Time Seen by Provider: 10/31/19 02:05 Source: patient Mode of arrival: Ambulatory Limitations: No Limitations - History of Present Illness Initial Comments: [facility] Date of Service: 10/31/2019 01:53:34 Impression: RO Acute Ischemic Stroke Posterior Circulation Infarct Comments: 59 year old female who presents to the hospital with ataxia, dysarthria, and le thargy. Concern for possible posterior circulation infarct. Mechanism of Stroke: Possible Thromboembolic Small Vessel Disease Metrics: Last Known Well: 10/31/2019 23:30:00 [employer] Notification Time: 10/31/2019 01:52:43 Arrival Time: 10/31/2019 01:43:00 Stamp Time: 10/31/2019 01:53:34 Time First Login Attempt: 10/31/2019 02:00:00 Video Start Time: 10/31/2019 02:00:00 Symptoms: ataxia NIHSS Start Assessment Time: 10/31/2019 02:05:00 tPA Verbal Order Time: 10/31/2019 02:21:22 Patient is a candidate for tPA. tPA CPOE Order Time: 10/31/2019 02:21:25 Needle Time: 10/31/2019 02:39:45 Weight Noted by Staff: 64.5 kg Video End Time: 10/31/2019 02:44:00 CT head was reviewed. Advanced imaging was reviewed. Advanced imaging CTA head and neck obtained. Radiologist was not called back for review of advanced imaging because No LVO ER Physician notified of the decision on thrombolytics management on 10/31/2019 02:45:00 Verbal Consent to tPA: I have explained to the Patient and Family the nature of the patients condition, the use of tPA fibrinolytic agent, and the benefits to be reasonably expected compared with alternative approaches. I have discussed the likelihood of major risks or complications of this procedure including (if applicable) but not limited to loss of limb function, brain damage, paralysis, hemorrhage, infection, complications from transfusion of blood components, drug reactions, blood clots and loss of life. I have also indicated that with any procedure there is always the possibility of an unexpected complication. All questions were answered and Patient and Family express understanding of the treatment plan and consent to the treatment. Our recommendations are outlined below. Recommendations: IV tPA recommended. tPA bolus given Without Complication. IV tPA Total Dose 58.1 mg IV tPA Bolus Dose 5.8 mg IV tPA Infusion Dose - 52.3 mg Routine post tPA monitoring including neuro checks and blood pressure control during/after treatment Monitor blood pressure Check blood pressure and NIHSS every 15 min for 2 h, then every 30 min for 6 h, and finally every hour for 16 h. Manage Blood Pressure per post tPA protocol. Admission to ICU CT brain 24 hours post tPA NPO until swallowing screen performed and passed No antiplatelet agents or anticoagulants (including heparin for DVT prophylaxis) in first 24 hours No White catheter, nasogastric tube, arterial catheter or central venous catheter for 24 hr, unless absolutely necessary Telemetry Bedside swallow evaluation HOB less than 30 degrees Euglycemia Avoid hyperthermia, PRN acetaminophen DVT prophylaxis Inpatient Neurology Consultation Stroke evaluation as per inpatient neurology recommendations Additional Recommendations: MRI Head Without Contrast Start Atorvastatin Lipid Panel Check Hgb A1c Dysphagia Screen DVT Prophylaxis Hyperglycemia Treatment as per Primary Team PT/ OT / Speech Therapy Consultation Neurology to Be Consulted for Inpatient Routine Consultation Echocardiogram, TTE Discussed with ED physician History of Present Illness: Patient is a 59 years old Female. Patient was brought by private transportation with symptoms of ataxia 59 year old female who presents because of left side weakness, difficulty walking, and altered mental status. Patient was in rastafarian this evening and was speaking clearly around 2330. Around 2345 noticed that the patient was having some slurred speech and when they tried to get up around midnight patient required assistance to stand up and had trouble walking to the car. At home p atient seemed to have slurred speech and had trouble standing or walking. CT head was reviewed. Last seen normal was within 4.5 hours. There is no history of hemorrhagic complications or intracranial hemorrhage. There is no history of Recent Anticoagulants. There is no history of recent major surgery. There is no history of recent stroke. Examination: BP(132/72), Blood Glucose(102) 1A: Level of Consciousness - Arouses to minor stimulation + 1 1B: Ask Month and Age - Both Questions Right + 0 1C: Blink Eyes & Squeeze Hands - Performs Both Tasks + 0 2: Test Horizontal Extraocular Movements - Normal + 0 3: Test Visual [place] - No Visual Loss + 0 4: Test Facial Palsy (Use Grimace if Obtunded) - Normal symmetry + 0 5A: Test Left Arm Motor Drift - No Drift for 10 Seconds + 0 5B: Test Right Arm Motor Drift - No Drift for 10 Seconds + 0 6A: Test Left Leg Motor Drift - No Drift for 5 Seconds + 0 6B: Test Right Leg Motor Drift - No Drift for 5 Seconds + 0 7: Test Limb Ataxia (FNF/Heel-Irizarry) - Ataxia in 2 Limbs + 2 8: Test Sensation - Normal; No sensory loss + 0 9: Test Language/Aphasia - Normal; No aphasia + 0 10: Test Dysarthria - Severe Dysarthria: Unintelligble Slurring or Out of Propor tion to Dysphasia + 2 11: Test Extinction/Inattention - No abnormality + 0 NIHSS Score: 5 Patient was informed the Neurology Consult would happen via TeleHealth consult by way of interactive audio and video telecommunications and consented to receiving care in this manner. Due to the immediate potential for life-threatening deterioration due to underlying acute neurologic illness, I spent 35 minutes providing critical care. This time includes time for face to face visit via telemedicine, review of medical records, imaging studies and discussion of findings with providers, the patient and/or family. Dr Yas Wolf [employer] Case [id number] - Related Data Home Medications: Home Medications Medication Instructions Recorded Confirmed Last Taken Dicyclomine [Bentyl] 20 mg PO QID 11/18/14 01/26/18 2 Days Ago ~01/24/18 20 Trazodone HCl [traZODone] 300 mg PO QHS 11/18/14 01/26/18 2 Days Ago ~01/24/18 300 Venlafaxine HCl [Venlafaxine ER] 150 mg PO QDAY 11/18/14 01/26/18 2 Days Ago ~01/24/18 1 buPROPion HCL [buPROPion] 450 mg PO DAILY 11/18/14 01/26/18 2 Days Ago ~01/24/18 450 MG Previous Rx's Medication Instructions Recorded Last Taken Type Pantoprazole [Protonix] 40 mg PO QDAY #30 tablet 11/21/14 2 Days Ago Rx ~01/24/18 40 amLODIPine 5 mg PO QDAY #30 tablet 11/21/14 2 Days Ago Rx ~01/24/18 5 carvediloL [Coreg] 12.5 mg PO BID #60 tablet 11/21/14 2 Days Ago Rx ~01/24/18 12.5 MG Triamter/Hctz 75-50 mg (Nf) 1 tab PO QDAY #30 tablet 02/28/16 2 Days Ago Rx [Maxzide 75-50 mg] ~01/24/18 1 Allergies/Adverse Reactions: Allergies Allergy/AdvReac Type Severity Reaction Status Date / Time No Known Allergies Allergy Unverified 11/18/14 11:24 ED Review of Systems ROS: Stated complaint: DIFFICULT WALKING,BLURRED VISION Other details as noted in HPI ED Past Medical Hx - Past Medical History Previous Medical History?: Yes Hx Hypertension: Yes Hx Congestive Heart Failure: No Hx Liver Disease: Yes (hepatitis C) Hx Psychiatric Treatment: Yes (depression) Hx Asthma: No - Surgical History Past Surgical History?: Yes Additional Surgical History: hysterectomy - Social History Smoking Status: Never Smoker Substance Use Type: None - Medications Home Medications: Home Medications Medication Instructions Recorded Confirmed Last Taken Type Dicyclomine [Bentyl] 20 mg PO QID 11/18/14 01/26/18 2 Days Ago History ~01/24/18 20 Trazodone HCl [traZODone] 300 mg PO QHS 11/18/14 01/26/18 2 Days Ago History ~01/24/18 300 Venlafaxine HCl [Venlafaxine ER] 150 mg PO QDAY 11/18/14 01/26/18 2 Days Ago History ~01/24/18 1 buPROPion HCL [buPROPion] 450 mg PO DAILY 11/18/14 01/26/18 2 Days Ago History ~01/24/18 450 MG Pantoprazole [Protonix] 40 mg PO QDAY #30 tablet 11/21/14 01/26/18 2 Days Ago Rx ~01/24/18 40 amLODIPine 5 mg PO QDAY #30 tablet 11/21/14 01/26/18 2 Days Ago Rx ~01/24/18 5 carvediloL [Coreg] 12.5 mg PO BID #60 tablet 11/21/14 01/26/18 2 Days Ago Rx ~01/24/18 12.5 MG Triamter/Hctz 75-50 mg (Nf) 1 tab PO QDAY #30 tablet 02/28/16 01/26/18 2 Days Ago Rx [Maxzide 75-50 mg] ~01/24/18 1 ED Neuro Physical Exam - General Limitations: No Limitations Suspected Stroke: Yes - NIHSS Assessment Interval: Baseline 1a. Level of Consciousness: arousable/minor stimuli 1b. LOC Questions: answers both correctly 1c. LOC Commands: performs tasks correctly 2. Best Gaze: normal 3. Visual: no visual loss 4. Facial Palsy: normal symmetrical movement 5b. Motor Arm Right: no drift 5a. Motor Arm Left: no drift 6a. Motor Leg Left: no drift 6b. Motor Leg Right: no drift 7. Limb Ataxia: present 2 limbs 8. Sensory: normal 9. Best Language: no aphasia 10. Dysarthria: severe dysarthria 11. Extinction/Inattention: no abnormality Total Score: 5 Stroke Severity: Moderate Stroke ED Course Vital Signs 10/31/19 01:54 Temperature 98.2 F Pulse Rate 78 Respiratory 18 Rate Blood Pressure 123/66 O2 Sat by Pulse 96 Oximetry - Lab Data Result diagrams: 10/31/19 02:20 10/31/19 02:20 Lab Results 10/31/19 10/31/19 10/31/19 Range/Units 01:59 02:20 02:20 WBC 5.8 (4.5-11.0) K/mm3 RBC 3.82 (3.65-5.03) M/mm3 Hgb 13.4 (10.1-14.3) gm/dl Hct 39.4 (30.3-42.9) % MCV 103 H (79-97) fl MCH 35 H (28-32) pg MCHC 34 (30-34) % RDW 15.3 H (13.2-15.2) % Plt Count 118 L (140-440) K/mm3 Lymph % (Auto) 37.1 H (13.4-35.0) % [place] % (Auto) 6.5 (0.0-7.3) % Eos % (Auto) 2.2 (0.0-4.3) % Baso % (Auto) 0.6 (0.0-1.8) % Lymph # 2.1 (1.2-5.4) K/mm3 [place] # 0.4 (0.0-0.8) K/mm3 Eos # 0.1 (0.0-0.4) K/mm3 Baso # 0.0 (0.0-0.1) K/mm3 Seg Neutrophils % 53.6 (40.0-70.0) % Seg Neutrophils # 3.1 (1.8-7.7) K/mm3 PT 13.7 (12.2-14.9) Sec. INR 1.04 (0.87-1.13) APTT 26.4 (24.2-36.6) Sec. Thrombin Time 15.0 L (15.1-19.6) Sec. Sodium (137-145) mmol/L Potassium (3.6-5.0) mmol/L Chloride (98-107) mmol/L Carbon Dioxide (22-30) mmol/L Anion Gap mmol/L BUN (7-17) mg/dL Creatinine (0.7-1.2) mg/dL Estimated GFR ml/min BUN/Creatinine Ratio % Glucose (65-100) mg/dL POC Glucose 102 (70-105) Calcium (8.4-10.2) mg/dL Troponin T (0.00-0.029) ng/mL 10/31/19 Range/Units 02:20 WBC (4.5-11.0) K/mm3 RBC (3.65-5.03) M/mm3 Hgb (10.1-14.3) gm/dl Hct (30.3-42.9) % MCV (79-97) fl MCH (28-32) pg MCHC (30-34) % RDW (13.2-15.2) % Plt Count (140-440) K/mm3 Lymph % (Auto) (13.4-35.0) % [place] % (Auto) (0.0-7.3) % Eos % (Auto) (0.0-4.3) % Baso % (Auto) (0.0-1.8) % Lymph # (1.2-5.4) K/mm3 [place] # (0.0-0.8) K/mm3 Eos # (0.0-0.4) K/mm3 Baso # (0.0-0.1) K/mm3 Seg Neutrophils % (40.0-70.0) % Seg Neutrophils # (1.8-7.7) K/mm3 PT (12.2-14.9) Sec. INR (0.87-1.13) APTT (24.2-36.6) Sec. Thrombin Time (15.1-19.6) Sec. Sodium 137 (137-145) mmol/L Potassium 3.5 L (3.6-5.0) mmol/L Chloride 97.7 L (98-107) mmol/L Carbon Dioxide 25 (22-30) mmol/L Anion Gap 18 mmol/L BUN 13 (7-17) mg/dL Creatinine 0.7 (0.7-1.2) mg/dL Estimated GFR > 60 ml/min BUN/Creatinine Ratio 19 % Glucose 111 H (65-100) mg/dL POC Glucose (70-105) Calcium 9.2 (8.4-10.2) mg/dL Troponin T < 0.010 (0.00-0.029) ng/mL Critical care attestation.: If time is entered above; I have spent that time in minutes in the direct care of this critically ill patient, excluding procedure time. ED Disposition Clinical Impression: Stroke Disposition: DC-09 OP ADMIT IP TO THIS HOSP Is pt being admited?: Yes Condition: Stable
--- NOTE | 2019-10-31 06:14 | Cat Scan Report ---
CTA HEAD AND NECK WITH CONTRAST HISTORY: Reported stroke. COMPARISON: None. TECHNIQUE: All CT scans at this location are performed using CT dose reduction for ALARA by means of automated exposure control.. 3-D/MIP reformats postprocessed. Percentage stenosis is determined by d irect quantitative measurements of diseased internal carotid artery diameter compared with normal dis jessica internal carotid artery reference segments or by criteria similar to NASCET where applicable. CONTRAST: 100 ml of Omnipaque 350 FINDINGS: CT HEAD: BRAIN / INTRACRANIAL CONTENTS: No acute hemorrhage, mass effect, midline shift, or hydrocephalus. No appreciable acute large territorial or lacunar infarct. ORBITS: No significant abnormality of visualized orbits. SINUSES / MASTOIDS: No significant abnormality of visualized sinuses and mastoid air cells. CTA HEAD: Intracranial vertebral arteries: No significant abnormality. Basilar artery: No significant abnormality. Posterior cerebral arteries: There is origin of the right posterior cerebral artery. Intracranial internal carotid arteries: There is calcified atherosclerotic plaque in the bilateral ca rotid siphons resulting in approximately 50% stenosis bilaterally. Anterior cerebral arteries: No significant abnormality. Middle cerebral arteries: No significant abnormality. Dural venous sinuses:Not optimally opacified. No significant abnormality. CTA NECK: Aortic arch: Mild atherosclerosis without significant stenosis. Cervical vertebral arteries: No significant abnormality. Common carotid arteries: No significant abnormality. Cervical internal carotid arteries: There is calcified plaque in the right carotid bulb that is resul ting in about 80% stenosis. On the left, there is calcified atherosclerotic plaque in the carotid bul b resulting in about 70% stenosis. Additional findings: None. IMPRESSION: 1. No acute intracranial abnormality. 2. No intracranial large vessel occlusion identified. 3. Approximately 50% stenosis of the bilateral intracranial internal carotid arteries in the cavernou s ICA segments. 4. Bilateral flow-limiting stenoses of the carotid bulbs and proximal cervical internal carotid arter ies due to calcified plaque, greater on the right. Signer Name: Alphonso Conti MD Signed: 10/31/2019 6:09 AM Workstation Name: [id number]
[2019-10-31] MEDS ORDERED: ACETAMINOPHEN 325 MG TAB PO PRN (07:39)
[2019-10-31] MEDS ORDERED: ONDANSETRON 4 MG/2 ML INJ IV PRN (07:39)
--- NOTE | 2019-10-31 07:48 | History and Physical Report ---
History of Present Illness Date of examination: 10/31/19 Date of admission: 10/31/2019 Chief complaint: Left sided weakness History of present illness: Patient is a 59 yo woman with a history of hypertension, hepatitis C with liver disease, tobacco dependency, depression with a suicidal attempt by intentionally drinking Ammonia, alcohol abuse, prior UDS positive for amphetamines, benzos and opiates who presents to [facility] ED with left sided weakness and progressive worsen constant dysarthria without any aggravating or relieving factors. She went to [facility] service around 11pm then she developed difficulty ambulating and required assistance from her spouse to get to the car. Her NIH score was 5. She was given tPA in ED. Currently, her speech is getting better but still difficult to understand and still slightly confused and drowsy. PMH: as hpi PSH: hysterectomy due stated ovarian cancer age 27 SH: 1/2 ppd tobacco, denies alcohol use anymore, no illicit drugs FH: no CVA, hypertension maternal grandmother ROS: Constitutional: denies: fever ENT: denies: throat or neck pain Respiratory: denies: cough, shortness of breath Cardiovascular: denies: chest pain Endocrine: denies unexplained weight loss or gain Gastrointestinal: denies: abdominal pain, nausea Genitourinary: denies: dysuria Rectal: denies no incontinence, no bleeding, no itching, no discharge Musculoskeletal: denies swelling, myaglia, +left upper muscle weakness Skin: denies: rash Neurological: denies: headache +slurred speech and ataxia Hematological/Lymphatic: denies: easy bleeding or easy bruising Allergic/Immunologic: no urticaria, no allergic rhinitis, no anaphylaxis Psych: denies sadness or hopelessness, SI/HI Medications and Allergies Allergies Allergy/AdvReac Type Severity Reaction Status Date / Time No Known Allergies Allergy Unverified 11/18/14 11:24 Home Medications Medication Instructions Recorded Confirmed Last Taken Type Dicyclomine [Bentyl] 20 mg PO QID 11/18/14 01/26/18 2 Days Ago History ~01/24/18 20 Trazodone HCl [traZODone] 300 mg PO QHS 11/18/14 01/26/18 2 Days Ago History ~01/24/18 300 Venlafaxine HCl [Venlafaxine ER] 150 mg PO QDAY 11/18/14 01/26/18 2 Days Ago History ~01/24/18 1 buPROPion HCL [buPROPion] 450 mg PO DAILY 11/18/14 01/26/18 2 Days Ago History ~01/24/18 450 MG Pantoprazole [Protonix] 40 mg PO QDAY #30 tablet 11/21/14 01/26/18 2 Days Ago Rx ~01/24/18 40 amLODIPine 5 mg PO QDAY #30 tablet 11/21/14 01/26/18 2 Days Ago Rx ~01/24/18 5 carvediloL [Coreg] 12.5 mg PO BID #60 tablet 11/21/14 01/26/18 2 Days Ago Rx ~01/24/18 12.5 MG Triamter/Hctz 75-50 mg (Nf) 1 tab PO QDAY #30 tablet 02/28/16 01/26/18 2 Days Ago Rx [Maxzide 75-50 mg] ~01/24/18 1 Active Meds: Active Medications Acetaminophen (Tylenol) 650 mg PO Q4H PRN PRN Reason: Pain, Mild (1-3) Aspirin (Aspirin) 325 mg PO QDAY [facility] Atorvastatin Calcium (Lipitor) 40 mg PO QHS [facility] Bisacodyl (Dulcolax) 10 mg [place] QDAY PRN PRN Reason: Constipation Ondansetron HCl (Zofran) 4 mg IV Q8H PRN PRN Reason: Nausea And Vomiting Sodium Chloride (Sodium Chloride Flush Syringe 10 Ml) 10 ml IV PRN PRN PRN Reason: LINE FLUSH Exam - Physical Exam Narrative exam: Gen: WDWN, NAD, lethargic, Orientated x 3 HEENT: NCAT, EOMI, PERRL, OP Clear Neck: supple, no adenopathy, no thyromegaly, no JVD CVS/Heart: RRR, normal S1S2, pulses present bilaterally Chest/Lungs: CTA B, Symmetrical chest expansion, good air entry bilaterally GI/Abdomen: soft, NTND, good bowel sounds, no guarding or rebound /Bladder: no suprapubic tenderness, no CVA or paraspinal tenderness Extermity/Skin: no c/c/e, no obvious rash MSK: FROM x 4, mild 4/5 LUE strength Neuro: CN 2-12 grossly intact except speech and facial, no drift Psych: calm - Constitutional Vitals: Temp Pulse Resp BP Pulse Ox 98.2 F 75 12 117/41 99 10/31/19 01:54 10/31/19 07:00 10/31/19 07:00 10/31/19 07:00 10/31/19 07:00 Results - Labs CBC & Chem 7: 10/31/19 02:20 10/31/19 02:20 Labs: Laboratory Last Values WBC 5.8 K/mm3 (4.5-11.0) 10/31/19 02:20 RBC 3.82 M/mm3 (3.65-5.03) 10/31/19 02:20 Hgb 13.4 gm/dl (10.1-14.3) 10/31/19 02:20 Hct 39.4 % (30.3-42.9) 10/31/19 02:20 MCV 103 fl (79-97) H 10/31/19 02:20 MCH 35 pg (28-32) H 10/31/19 02:20 MCHC 34 % (30-34) 10/31/19 02:20 RDW 15.3 % (13.2-15.2) H 10/31/19 02:20 Plt Count 118 K/mm3 (140-440) L 10/31/19 02:20 Lymph % (Auto) 37.1 % (13.4-35.0) H 10/31/19 02:20 Millard % (Auto) 6.5 % (0.0-7.3) 10/31/19 02:20 Eos % (Auto) 2.2 % (0.0-4.3) 10/31/19 02:20 Baso % (Auto) 0.6 % (0.0-1.8) 10/31/19 02:20 Lymph # 2.1 K/mm3 (1.2-5.4) 10/31/19 02:20 Millard # 0.4 K/mm3 (0.0-0.8) 10/31/19 02:20 Eos # 0.1 K/mm3 (0.0-0.4) 10/31/19 02:20 Baso # 0.0 K/mm3 (0.0-0.1) 10/31/19 02:20 Seg Neutrophils % 53.6 % (40.0-70.0) 10/31/19 02:20 Seg Neutrophils # 3.1 K/mm3 (1.8-7.7) 10/31/19 02:20 PT 13.7 Sec. (12.2-14.9) 10/31/19 02:20 INR 1.04 (0.87-1.13) 10/31/19 02:20 APTT 26.4 Sec. (24.2-36.6) 10/31/19 02:20 Thrombin Time 15.0 Sec. (15.1-19.6) L 10/31/19 02:20 Sodium 137 mmol/L (137-145) 10/31/19 02:20 Potassium 3.5 mmol/L (3.6-5.0) L 10/31/19 02:20 Chloride 97.7 mmol/L (98-107) L 10/31/19 02:20 Carbon Dioxide 25 mmol/L (22-30) 10/31/19 02:20 Anion Gap 18 mmol/L 10/31/19 02:20 BUN 13 mg/dL (7-17) 10/31/19 02:20 Creatinine 0.7 mg/dL (0.7-1.2) 10/31/19 02:20 Estimated GFR > 60 ml/min 10/31/19 02:20 BUN/Creatinine Ratio 19 % 10/31/19 02:20 Glucose 111 mg/dL (65-100) H 10/31/19 02:20 POC Glucose 102 (70-105) 10/31/19 01:59 Calcium 9.2 mg/dL (8.4-10.2) 10/31/19 02:20 Troponin T < 0.010 ng/mL (0.00-0.029) 10/31/19 02:20 Assessment and Plan Assessment and plan: Patient is a 59 yo woman with a history of hypertension, hepatitis C with liver disease, tobacco dependency, depression with a suicidal attempt by intentionally drinking Ammonia, alcohol abuse, prior UDS positive for amphetamines, benzos and opiates who presents to [facility] ED with left sided weakness and progressive worsen constant dysarthria without any aggravating or relieving factors. She went to [facility] service around 11pm then she developed difficulty ambulating and required assistance from her spouse to get to the car. Her NIH score was 5. She was given tPA in ED. Currently, her speech is getting better but still difficult to understand and still slightly confused and drowsy. * CT head without contrast no acute findings * CTA head and neck IMPRESSION: 1. No acute intracranial abnormality. 2. No intracranial large vessel occlusion identified. 3. Approximately 50% stenosis of the bilateral intracranial internal carotid arteries in the cavernous ICA segments. 4. Bilateral flow-limiting stenoses of the carotid bulbs and proximal cervical internal carotid arteries due to calcified plaque, greater on the right. Acute Ischemic Stroke s/p TPA: stroke protocal used, admit to ICU consulted CCM s/p tPA received: protocol used, consulted Neurology Carotid Stenosis: consult Vascular Surgery Acute metabolic encephalopathy due to stroke Tobacco dependency: residential treatment counselor on stopping, offered and accepted nicotine patch Macrocytosis without anemia and thrombocytopenia due to chronic liver disease/Etoh related/hep C related: monitor cbc closely Hypokalemia: replete and monitor closley DVT ppx: scd only, no a/c x 24 hours post tPA full code CCT 33 minutes
[2019-10-31] MEDS: NICOTINE 21 MG/24 HR PATCH TD SCH (14:59)
--- NOTE | 2019-10-31 17:08 | Consultation ---
History of Present Illness Consult date: 10/31/19 Reason for Consult: Left sided weakness, dysarthria Chief complaint: Left sided weakness, dysarthria History of present illness: Patient is a 59 woman w/ h/o HTN, HCV, depression. Yesterday evening, while the patient was attending [facility] service at 11:30pm, she was noted to have onset of slurred speech and difficulty walking when leaving [facility]. She then went home, and her noted that she was not drinking champagne that they had brought home for new years celebrations. Patient then was noted to have generalized convulsions lasting about 5 seconds, after which she lost consciousness for about 5-10 minutes. She then woke up while her was driving her to the hospital. In the ER, patient was seen by teleneurology, and felt to be a candidate for tPA, which was administered. Patient states that she feels back to baseline today. Medications and Allergies Allergies Allergy/AdvReac Type Severity Reaction Status Date / Time No Known Allergies Allergy Unverified 11/18/14 11:24 Home Medications Medication Instructions Recorded Confirmed Last Taken Type Dicyclomine [Bentyl] 20 mg PO QID 11/18/14 01/26/18 2 Days Ago History ~01/24/18 20 Trazodone HCl [traZODone] 300 mg PO QHS 11/18/14 01/26/18 2 Days Ago History ~01/24/18 300 Venlafaxine HCl [Venlafaxine ER] 150 mg PO QDAY 11/18/14 01/26/18 2 Days Ago History ~01/24/18 1 buPROPion HCL [buPROPion] 450 mg PO DAILY 11/18/14 01/26/18 2 Days Ago History ~01/24/18 450 MG Pantoprazole [Protonix] 40 mg PO QDAY #30 tablet 11/21/14 01/26/18 2 Days Ago Rx ~01/24/18 40 amLODIPine 5 mg PO QDAY #30 tablet 11/21/14 01/26/18 2 Days Ago Rx ~01/24/18 5 carvediloL [Coreg] 12.5 mg PO BID #60 tablet 11/21/14 01/26/18 2 Days Ago Rx ~01/24/18 12.5 MG Triamter/Hctz 75-50 mg (Nf) 1 tab PO QDAY #30 tablet 02/28/16 01/26/18 2 Days Ago Rx [Maxzide 75-50 mg] ~01/24/18 1 Active Meds: Active Medications Acetaminophen (Tylenol) 650 mg PO Q4H PRN PRN Reason: Pain, Mild (1-3) Aspirin (Aspirin) 325 mg PO QDAY [facility] Atorvastatin Calcium (Lipitor) 40 mg PO QHS [facility] Bisacodyl (Dulcolax) 10 mg [place] QDAY PRN PRN Reason: Constipation Nicotine (Habitrol) 21 mg TD QDAY [facility] Last Admin: 10/31/19 14:59 Dose: 21 mg Documented by: Ondansetron HCl (Zofran) 4 mg IV Q8H PRN PRN Reason: Nausea And Vomiting Last Admin: 10/31/19 08:12 Dose: 4 mg Documented by: Sodium Chloride (Sodium Chloride Flush Syringe 10 Ml) 10 ml IV PRN PRN PRN Reason: LINE FLUSH Physical Examination - Vital Signs Vital Signs: Vital Signs Pulse Pulse Ox 87 98 10/31/19 01:53 10/31/19 01:53 Results - Laboratory Findings CBC and BMP: 10/31/19 02:20 10/31/19 02:20 Abnormal Lab Findings: Abnormal Labs 10/31/19 10/31/19 10/31/19 02:20 02:20 02:20 MCV 103 H MCH 35 H RDW 15.3 H Plt Count 118 L Lymph % (Auto) 37.1 H Thrombin Time 15.0 L Potassium 3.5 L Chloride 97.7 L Glucose 111 H Assessment and Plan Patient is a 59 woman w/ h/o HTN, HCV, depression, who p/w slurred speech, left arm numbness, difficulty walking, and convulsion. According to the patient's clinical findings, it is likely that she has had an ischemic stroke. Patient alternatively may have also had a seizure, or may have had jessica's paralysis 2/2 seizure. Plan: 1. Stroke: 1. Stroke: - MRI pending - CT head unremarkable - CTA head/neck: 80% stenosis in Rt. Carotid bulb, and 70% stenosis in left Carotid bulb - Recommend vascular surgery consult for carotid artery disease, as patient may be a candidate for carotid endarterectomy. - Check EEG. - Echo: EF 50-55%, bubble study negative, LA normal size. - Give ASA 24 hours after tPA administration. - Cont. statin. LDL goal <70. - PT/OT/ST - DVT Ppx: recommend lovenox, to be started 24 hours after tPA administration. 2. Hypertension: - Recommend BP goal of <220/120 to allow for permissive HTN. Can target normotension on 11/02/18 - Will continue to follow patient. Thank you for allowing me to take part in the care of this patient. Eron Gardner MD Neurology
--- NOTE | 2019-10-31 17:19 | Consultation ---
History of Present Illness Consult date: 10/31/19 Reason for Consult: left sided weakness, dysarthria Chief complaint: Left sided weakness, dysarthria History of present illness: Previous consult noted was entered in error. Please refer to this consult note. Patient is a 59 woman w/ h/o HTN, HCV, depression. Yesterday evening, while the patient was attending [facility] service at 11:30pm, she was noted to have onset of slurred speech and difficulty walking when leaving [facility]. She then went home, and her noted that she was not drinking champagne that they had brought home for new years celebrations. Patient then was noted to have generalized convulsions lasting about 5 seconds, after which she lost consciousness for about 5-10 minutes. She then woke up while her was driving her to the hospital. In the ER, patient was seen by teleneurology, and felt to be a candidate for tPA, which was administered. Patient states that she feels back to baseline today. Past History Past Medical History: other (HTN, HCV, depression) Social history: smoking Family history: no significant family history Medications and Allergies Allergies Allergy/AdvReac Type Severity Reaction Status Date / Time No Known Allergies Allergy Unverified 11/18/14 11:24 Home Medications Medication Instructions Recorded Confirmed Last Taken Type Dicyclomine [Bentyl] 20 mg PO QID 11/18/14 01/26/18 2 Days Ago History ~01/24/18 20 Trazodone HCl [traZODone] 300 mg PO QHS 11/18/14 01/26/18 2 Days Ago History ~01/24/18 300 Venlafaxine HCl [Venlafaxine ER] 150 mg PO QDAY 11/18/14 01/26/18 2 Days Ago History ~01/24/18 1 buPROPion HCL [buPROPion] 450 mg PO DAILY 11/18/14 01/26/18 2 Days Ago History ~01/24/18 450 MG Pantoprazole [Protonix] 40 mg PO QDAY #30 tablet 11/21/14 01/26/18 2 Days Ago Rx ~01/24/18 40 amLODIPine 5 mg PO QDAY #30 tablet 11/21/14 01/26/18 2 Days Ago Rx ~01/24/18 5 carvediloL [Coreg] 12.5 mg PO BID #60 tablet 11/21/14 01/26/18 2 Days Ago Rx ~01/24/18 12.5 MG Triamter/Hctz 75-50 mg (Nf) 1 tab PO QDAY #30 tablet 02/28/16 01/26/18 2 Days Ago Rx [Maxzide 75-50 mg] ~01/24/18 1 Active Meds: Active Medications Acetaminophen (Tylenol) 650 mg PO Q4H PRN PRN Reason: Pain, Mild (1-3) Aspirin (Aspirin) 325 mg PO QDAY [facility] Atorvastatin Calcium (Lipitor) 40 mg PO QHS [facility] Bisacodyl (Dulcolax) 10 mg [place] QDAY PRN PRN Reason: Constipation Nicotine (Habitrol) 21 mg TD QDAY [facility] Last Admin: 10/31/19 14:59 Dose: 21 mg Documented by: Ondansetron HCl (Zofran) 4 mg IV Q8H PRN PRN Reason: Nausea And Vomiting Last Admin: 10/31/19 08:12 Dose: 4 mg Documented by: Sodium Chloride (Sodium Chloride Flush Syringe 10 Ml) 10 ml IV PRN PRN PRN Reason: LINE FLUSH Review of Systems All systems: negative Neurological: weakness, convulsions, change in speech Physical Examination - Vital Signs Vital Signs: Vital Signs Pulse Pulse Ox 87 98 10/31/19 01:53 10/31/19 01:53 - Physical Exam Narrative exam: Patient is awake, alert, oriented 4, follows complex commands. No dysarthria or aphasia noted. PERRL, EOMI, VFF, no facial weakness noted, bilaterally intact light touch, tongue midline. 5/5 strength in all extremities. Noted to have tenderness in b/l LE below knee level. Bilaterally intact to light touch in all extremities. Bilaterally intact to finger to nose and heel to [place]. 2+ reflexes throughout. - Constitutional General appearance: comfortable - EENT EENT: Present: ATNC, PERRL, mucous membranes moist, hearing intact, vision intact - Respiratory Respiratory: Present: lungs clear, normal breath sounds - Cardiovascular Cardiovascular: Present: regular rate, normal S1, normal S2 Extremities: Present: no clubbing, cyanosis, no inflammation - Gastrointestinal Gastrointestinal: Present: normoactive bowel sounds, soft, non-tender - Integumentary Integumentary: Present: normal - Musculoskeletal Musculoskeletal: Present: no fluid collection, normal range of motion - Psychiatric Psychiatric: Present: mood/affect appropriate - Level of Consciousness 1a. Level of Consciousness: alert/keenly responsive - LOC Questions 1b. LOC Questions: answers both correctly - LOC Command 1c. LOC Commands: performs tasks correctly - Best Gaze 2. Best Gaze: normal - Visual 3. Visual: no visual loss - Facial Palsy 4. Facial Palsy: normal symmetrical movement - Motor Arm 5a. Motor Arm Left: no drift 5b. Motor Arm Right: no drift - Motor Leg 6a. Motor Leg Left: no drift 6b. Motor Leg Right: no drift - Limb Ataxia 7. Limb Ataxia: absent - Sensory 8. Sensory: normal - Best Language 9. Best Language: no aphasia - Dysarthria 10. Dysarthria: normal - Extinction and Inattention 11. Extinction/Inattention: no abnormality - Scoring Total Score: 0 Stroke Severity: No Stroke Symptoms Results - Laboratory Findings CBC and BMP: 10/31/19 02:20 10/31/19 02:20 Abnormal Lab Findings: Abnormal Labs 10/31/19 10/31/19 10/31/19 02:20 02:20 02:20 MCV 103 H MCH 35 H RDW 15.3 H Plt Count 118 L Lymph % (Auto) 37.1 H Thrombin Time 15.0 L Potassium 3.5 L Chloride 97.7 L Glucose 111 H Assessment and Plan Patient is a 59 woman w/ h/o HTN, HCV, depression, who p/w slurred speech, left arm numbness, difficulty walking, and convulsion. According to the patient's clinical findings, it is likely that she has had an ischemic stroke. Patient alternatively may have also had a seizure, or may have had jessica's paralysis 2/2 seizure. Plan: 1. Stroke: 1. Stroke: - MRI pending - CT head unremarkable - CTA head/neck: 80% stenosis in Rt. Carotid bulb, and 70% stenosis in left Carotid bulb - Recommend vascular surgery consult for carotid artery disease, as patient may be a candidate for carotid endarterectomy. - Check EEG. - Echo: EF 50-55%, bubble study negative, LA normal size. - Give ASA 24 hours after tPA administration. - Cont. statin. LDL goal <70. - PT/OT/ST - DVT Ppx: recommend lovenox, to be started 24 hours after tPA administration. - Check b/l LE venous doppler to rule out DVT, as patient c/o b/l calf pain/tenderness. 2. Hypertension: - Recommend BP goal of <220/120 to allow for permissive HTN. Can target normotension on 11/02/18 - Will continue to follow patient. Thank you for allowing me to take part in the care of this patient. Eron Gardner MD Neurology
[2019-10-31 19:45] LABS: Amphetamine Screen,Urine PRESUMPTIVE NEGATIVE; Benzodiazepines Screen,Urine PRESUMPTIVE NEGATIVE; Cannabinoid Screen,Urine PRESUMPTIVE NEGATIVE; Cocaine Screen,Urine PRESUMPTIVE NEGATIVE; Methadone Screen,Urine PRESUMPTIVE NEGATIVE
[2019-10-31 20:14] LABS: Opiate Screen,Urine PRESUMPTIVE POSITIVE
[2019-11-01 10:09] LABS: Chol/HDL Ratio 2.15 %
--- NOTE | 2019-11-01 10:34 | Consultation ---
History of Present Illness - Reason for Consult Consult date: 11/01/19 carotid stenosis - History of Present Illness Patient with a history of dysarthria and left-sided weakness on presentation which is now resolved. She underwent treatment with TPA while in the emergency department. At time of examination, the patient is able to ambulate on her own assistance. No residual neuro deficits. A CTA of the head and neck was performed which demonstrates bulky calcific narrowing of bilateral carotid bulbs right greater than left. Past History Past Medical History: other (HTN, HCV, depression) Social history: smoking Family history: no significant family history Medications and Allergies Allergies Allergy/AdvReac Type Severity Reaction Status Date / Time No Known Allergies Allergy Unverified 11/18/14 11:24 Home Medications Medication Instructions Recorded Confirmed Last Taken Type Dicyclomine [Bentyl] 20 mg PO QID 11/18/14 01/26/18 2 Days Ago History ~01/24/18 20 Trazodone HCl [traZODone] 300 mg PO QHS 11/18/14 01/26/18 2 Days Ago History ~01/24/18 300 Venlafaxine HCl [Venlafaxine ER] 150 mg PO QDAY 11/18/14 01/26/18 2 Days Ago History ~01/24/18 1 buPROPion HCL [buPROPion] 450 mg PO DAILY 11/18/14 01/26/18 2 Days Ago History ~01/24/18 450 MG Pantoprazole [Protonix] 40 mg PO QDAY #30 tablet 11/21/14 01/26/18 2 Days Ago Rx ~01/24/18 40 amLODIPine 5 mg PO QDAY #30 tablet 11/21/14 01/26/18 2 Days Ago Rx ~01/24/18 5 carvediloL [Coreg] 12.5 mg PO BID #60 tablet 11/21/14 01/26/18 2 Days Ago Rx ~01/24/18 12.5 MG Triamter/Hctz 75-50 mg (Nf) 1 tab PO QDAY #30 tablet 02/28/16 01/26/18 2 Days Ago Rx [Maxzide 75-50 mg] ~01/24/18 1 Active Meds: Active Medications Acetaminophen (Tylenol) 650 mg PO Q4H PRN PRN Reason: Pain, Mild (1-3) Aspirin (Aspirin) 325 mg PO QDAY [facility] Atorvastatin Calcium (Lipitor) 40 mg PO QHS [facility] Last Admin: 10/31/19 22:07 Dose: 40 mg Documented by: Bisacodyl (Dulcolax) 10 mg [place] QDAY PRN PRN Reason: Constipation Nicotine (Habitrol) 21 mg TD QDAY [facility] Last Admin: 10/31/19 14:59 Dose: 21 mg Documented by: Ondansetron HCl (Zofran) 4 mg IV Q8H PRN PRN Reason: Nausea And Vomiting Last Admin: 10/31/19 08:12 Dose: 4 mg Documented by: Pneumococcal Polyvalent Vaccine (Pneumovax 23) 0.5 ml IM .ONCE ONE Stop: 11/01/19 12:01 Sodium Chloride (Sodium Chloride Flush Syringe 10 Ml) 10 ml IV PRN PRN PRN Reason: LINE FLUSH Review of Systems All systems: negative Exam - Constitutional Vitals: Temp Pulse Resp BP Pulse Ox 98 F 86 18 150/54 99 11/01/19 03:35 11/01/19 04:33 11/01/19 03:35 11/01/19 03:35 11/01/19 03:35 General appearance: Present: no acute distress - EENT Eyes: Present: EOM intact ENT: hearing intact - Neck Neck: Present: supple - Respiratory Respiratory effort: normal - Abdominal General gastrointestinal: Present: deferred Female genitourinary: Present: deferred - Rectal Rectal Exam: deferred - Musculoskeletal Musculoskeletal: strength equal bilaterally - Psychiatric Psychiatric: appropriate mood/affect, cooperative Results - Labs CBC & Chem 7: 10/31/19 02:20 10/31/19 02:20 Labs: Abnormal lab results 11/01/19 Range/Units 07:26 HDL Cholesterol 73 H (40-59) mg/dL - Imaging and Cardiology CT Scan - head: report reviewed (CTA neck), image reviewed Assessment and Plan Patient with a history of TIA now resolved noted to have significant carotid stenosis right greater than left. We'll obtain a vascular ultrasound today. The patient will need to have a cardiac evaluation in anticipation of potential carotid endarterectomy.
[2019-11-01] MEDS ORDERED: PNEUMOCOCCAL 23 Valent 0.5 ML VIAL IM ONE (12:00)
[2019-11-01] MEDS: NICOTINE 21 MG/24 HR PATCH TD SCH (12:02)
[2019-11-01] MEDS: ASPIRIN 325 MG TAB PO SCH (12:02)
--- NOTE | 2019-11-01 12:12 | Consultation ---
History of Present Illness Consult date: 11/01/19 Consult reason: pre op evaluation History of present illness: This is a 59-year old woman who presented with with ataxia, dysarthria, and lethargy and was administered tPA in the emergency department. An echocardiogram reports a normal left ventricular systolic function, ejection fraction 50-55%. Bubble study is negative. On further evaluation, she was found to have significant carotid stenosis right greater than left and is now planned for carotid endarterectomy. A cardiac consultation has been requested for pre- operative risk assessment. Patient has no cardiac complaints. She denies chest pain, unusual shortness of breath and palpitations. An ECG done in the emergency department shows sinus rhythm, no acute ischemic changes. Her latest cardiac workup was done at this hospital in 2014. She underwent a cardiac cath that showed mild nonobstructive single vessel disease of the RCA, ejection fraction 50-55%. Past History Past Medical History: other (HTN, HCV, depression) Social history: smoking Family history: no significant family history Medications and Allergies Allergies Allergy/AdvReac Type Severity Reaction Status Date / Time No Known Allergies Allergy Unverified 11/18/14 11:24 Home Medications Medication Instructions Recorded Confirmed Last Taken Type Dicyclomine [Bentyl] 20 mg PO QID 11/18/14 01/26/18 2 Days Ago History ~01/24/18 20 Trazodone HCl [traZODone] 300 mg PO QHS 11/18/14 01/26/18 2 Days Ago History ~01/24/18 300 Venlafaxine HCl [Venlafaxine ER] 150 mg PO QDAY 11/18/14 01/26/18 2 Days Ago History ~01/24/18 1 buPROPion HCL [buPROPion] 450 mg PO DAILY 11/18/14 01/26/18 2 Days Ago History ~01/24/18 450 MG Pantoprazole [Protonix] 40 mg PO QDAY #30 tablet 11/21/14 01/26/18 2 Days Ago Rx ~01/24/18 40 amLODIPine 5 mg PO QDAY #30 tablet 11/21/14 01/26/18 2 Days Ago Rx ~01/24/18 5 carvediloL [Coreg] 12.5 mg PO BID #60 tablet 11/21/14 01/26/18 2 Days Ago Rx ~01/24/18 12.5 MG Triamter/Hctz 75-50 mg (Nf) 1 tab PO QDAY #30 tablet 02/28/16 01/26/18 2 Days Ago Rx [Maxzide 75-50 mg] ~01/24/18 1 Active Meds: Active Medications Acetaminophen (Tylenol) 650 mg PO Q4H PRN PRN Reason: Pain, Mild (1-3) Aspirin (Aspirin) 325 mg PO QDAY [facility] Last Admin: 11/01/19 12:02 Dose: 325 mg Documented by: Atorvastatin Calcium (Lipitor) 40 mg PO QHS [facility] Last Admin: 10/31/19 22:07 Dose: 40 mg Documented by: Bisacodyl (Dulcolax) 10 mg [place] QDAY PRN PRN Reason: Constipation Nicotine (Habitrol) 21 mg TD QDAY [facility] Last Admin: 11/01/19 12:02 Dose: 21 mg Documented by: Ondansetron HCl (Zofran) 4 mg IV Q8H PRN PRN Reason: Nausea And Vomiting Last Admin: 10/31/19 08:12 Dose: 4 mg Documented by: Sodium Chloride (Sodium Chloride Flush Syringe 10 Ml) 10 ml IV PRN PRN PRN Reason: LINE FLUSH Physical Examination Vital Signs Pulse Pulse Ox 87 98 10/31/19 01:53 10/31/19 01:53 General appearance: no acute distress HEENT: Positive: PERRL Neck: Positive: trachea midline Cardiac: Positive: Reg Rate and Rhythm Lungs: Positive: Decreased Breath Sounds Neuro: Positive: Grossly Intact Results 10/31/19 02:20 10/31/19 02:20 Lipids 11/01/19 Range/Units 07:26 Triglycerides 54 (2-149) mg/dL Cholesterol 157 (50-199) mg/dL HDL Cholesterol 73 H (40-59) mg/dL Cholesterol/HDL Ratio 2.15 %
--- NOTE | 2019-11-01 14:23 | Progress Note ---
Assessment and Plan Patient is a 59 woman w/ h/o HTN, HCV, depression, who p/w slurred speech, left arm numbness, difficulty walking, and convulsion. According to the patient's clinical findings, it is likely that she has had an ischemic stroke or a TIA. Patient alternatively may have also had a seizure, or may have had jessica's paralysis 2/2 seizure. Plan: 1. Stroke: - MRI pending - CT head unremarkable - CTA head/neck: 80% stenosis in Rt. Carotid bulb, and 70% stenosis in left Carotid bulb - Recommend vascular surgery consult for carotid artery disease, as patient may be a candidate for carotid endarterectomy. - Check EEG- pending - Echo: EF 50-55%, bubble study negative, LA normal size. - Cont. ASA. - Cont. statin. LDL goal <70. - PT/OT/ST - DVT Ppx: recommend lovenox, to be started 24 hours after tPA administration. - Check b/l LE venous doppler to rule out DVT, as patient c/o b/l calf pain/tenderness. 2. Hypertension: - Recommend BP goal of <220/120 to allow for permissive HTN. Can target normotension on 11/02/18 - Will continue to follow patient. Thank you for allowing me to take part in the care of this patient. Eron Gardner MD Neurology Subjective Date of service: 11/01/19 Principal diagnosis: Stroke Interval history: No acute events overnight. Objective - Exam Narrative Exam: Patient is awake, alert, oriented 4, follows complex commands. No dysarthria or aphasia noted. PERRL, EOMI, VFF, no facial weakness noted, bilaterally intact light touch, tongue midline. 5/5 strength in all extremities. Noted to have tenderness in b/l LE below knee level. Bilaterally intact to light touch in all extremities. Bilaterally intact to finger to nose and heel to [place]. 2+ reflexes throughout. - Vital Sign Vital Signs - 12hr 11/01/19 11/01/19 11/01/19 02:21 02:31 02:41 Temperature Pulse Rate Respiratory 14 16 17 Rate Blood Pressure 139/87 139/87 139/87 Blood Pressure [Left] O2 Sat by Pulse 95 98 100 Oximetry 11/01/19 11/01/19 11/01/19 03:27 03:31 03:35 Temperature 98 F Pulse Rate 86 Respiratory 16 13 18 Rate Blood Pressure 139/87 150/54 Blood Pressure 150/54 [Left] O2 Sat by Pulse 98 97 99 Oximetry 11/01/19 11/01/19 11/01/19 03:41 03:51 04:00 Temperature Pulse Rate Respiratory 14 18 20 Rate Blood Pressure 150/54 150/54 124/66 Blood Pressure [Left] O2 Sat by Pulse 95 99 97 Oximetry 11/01/19 11/01/19 11/01/19 04:33 06:00 12:35 Temperature 98.1 F 97.9 F Pulse Rate 86 82 83 Respiratory 16 18 Rate Blood Pressure 152/72 169/78 Blood Pressure [Left] O2 Sat by Pulse 98 99 Oximetry - General Apperance Constitutional: comfortable - EENT EENT: ATNC, PERRL, mucous membranes moist, hearing intact, vision intact - Respiratory Respiratory: lungs clear, normal breath sounds - Cardiovascular Cardiovascular: regular rate, normal S1, normal S2 Extremities: no clubbing, cyanosis, no inflammation - Gastrointestinal Gastrointestinal: normoactive bowel sounds, soft, non-tender - Integumentary Integumentary: normal - Musculoskeletal Musculoskeletal: no fluid collection - Psychiatric Psychiatric: mood/affect appropriate - Laboratory Findings CBC and BMP: 10/31/19 02:20 10/31/19 02:20 Abnormal Lab Findings: Abnormal Labs 10/31/19 10/31/19 10/31/19 02:20 02:20 02:20 MCV 103 H MCH 35 H RDW 15.3 H Plt Count 118 L Lymph % (Auto) 37.1 H Thrombin Time 15.0 L Potassium 3.5 L Chloride 97.7 L Glucose 111 H HDL Cholesterol 11/01/19 07:26 MCV MCH RDW Plt Count Lymph % (Auto) Thrombin Time Potassium Chloride Glucose HDL Cholesterol 73 H
--- NOTE | 2019-11-01 15:17 | Vascular Lab Report ---
DUPLEX DOPPLER LOWER EXTREMITY VEINS, BILATERAL INDICATION: b/l calf pain, r/o DVT. TECHNIQUE: Duplex doppler imaging was performed through the veins of both lower extremities using ve nous compression and other maneuvers. COMPARISON: No relevant prior imaging study available. FINDINGS: Right Common femoral vein: Negative. Right Superficial femoral vein: Negative. Right Popliteal vein: Negative. Right Calf veins: Negative. Left Common femoral vein: Negative. Left Superficial femoral vein: Negative. Left Popliteal vein: Negative. Left Calf veins: Negative. Additional findings: None.. IMPRESSION: No sonographic evidence for DVT in either lower extremity. Signer Name: Andre Abarca Jr, MD Signed: 11/01/2019 3:13 PM Workstation Name: [id number]
--- NOTE | 2019-11-01 15:20 | Vascular Lab Report ---
BILATERAL CAROTID DOPPLER ULTRASOUND INDICATION : TIA TECHNIQUE: Grayscale and color Doppler imaging performed through the neck. COMPARISON: None FINDINGS: Right: There is moderate partially calcified plaques in the right carotid bulb. Peak systolic veloc ity in the CCA is 75 cm/s with end-diastolic velocity of 16 cm/s. Peak systolic velocity in the proxi mal ICA is 170 cm/s with end-diastolic velocity of 18 cm/s. ICA to CCA ratio is greater than 2. There is antegrade flow in the ECA and the vertebral artery. Left: There is moderate partially calcified plaque in the carotid bulb and proximal ICA. Peak systoli c velocity in the CCA is 74 cm/s with end-diastolic velocity of 15 cm/s. Peak systolic velocity in th e proximal ICA is 148 cm/s with end-diastolic velocity of 34 cm/s. ICA to CCA ratio is 2. There is an tegrade flow in the ECA and the vertebral artery. IMPRESSION: Doppler velocities indicate 50-79% stenosis in both proximal ICAs. Moderate atherosclerot ic plaques at the carotid bifurcations bilaterally. Signer Name: Andre Abarca Jr, MD Signed: 11/01/2019 3:16 PM Workstation Name: [id number]
--- NOTE | 2019-11-01 16:34 | Progress Note ---
Subjective Date of service: 11/01/19 Principal diagnosis: Stroke Interval history: patient with symptomatic right-sided carotid stenosis patient low to moderate cardiac risk for surgery plan for right carotid endarterectomy tomorrow NPO p MN patient consented and marked Objective - Constitutional Vitals: Vital Signs - 12hr 11/01/19 11/01/19 06:00 12:35 Temperature 98.1 F 97.9 F Pulse Rate 82 83 Respiratory 16 18 Rate Blood Pressure 152/72 169/78 O2 Sat by Pulse 98 99 Oximetry - Labs CBC & Chem 7: 10/31/19 02:20 10/31/19 02:20 Labs: Abnormal lab results 11/01/19 Range/Units 07:26 HDL Cholesterol 73 H (40-59) mg/dL Medications & Allergies - Medications Allergies/Adverse Reactions: Allergies No Known Allergies Allergy (Unverified 11/18/14 11:24) Home Medications: Home Medications Medication Instructions Recorded Confirmed Last Taken Type Dicyclomine [Bentyl] 20 mg PO QID 11/18/14 01/26/18 2 Days Ago History ~01/24/18 20 Trazodone HCl [traZODone] 300 mg PO QHS 11/18/14 01/26/18 2 Days Ago History ~01/24/18 300 Venlafaxine HCl [Venlafaxine ER] 150 mg PO QDAY 11/18/14 01/26/18 2 Days Ago History ~01/24/18 1 buPROPion HCL [buPROPion] 450 mg PO DAILY 11/18/14 01/26/18 2 Days Ago History ~01/24/18 450 MG Pantoprazole [Protonix] 40 mg PO QDAY #30 tablet 11/21/14 01/26/18 2 Days Ago Rx ~01/24/18 40 amLODIPine 5 mg PO QDAY #30 tablet 11/21/14 01/26/18 2 Days Ago Rx ~01/24/18 5 carvediloL [Coreg] 12.5 mg PO BID #60 tablet 11/21/14 01/26/18 2 Days Ago Rx ~01/24/18 12.5 MG Triamter/Hctz 75-50 mg (Nf) 1 tab PO QDAY #30 tablet 02/28/16 01/26/18 2 Days Ago Rx [Maxzide 75-50 mg] ~01/24/18 1 Active Medications: Generic Name Dose Route Start Last Admin Trade Name Freq PRN Reason Stop Dose Admin Acetaminophen 650 mg 10/31/19 07:39 Tylenol PO Q4H PRN Pain, Mild (1-3) Aspirin 325 mg 11/01/19 10:00 11/01/19 12:02 Aspirin PO 325 mg QDAY [facility]SEA Administration Atorvastatin Calcium 40 mg 10/31/19 22:00 10/31/19 22:07 Lipitor PO 40 mg QHS [facility]HELSEA Administration Bisacodyl 10 mg 10/31/19 10:00 Dulcolax [place] QDAY PRN Constipation Nicotine 21 mg 10/31/19 14:00 11/01/19 12:02 Habitrol TD 21 mg QDAY CHELSEA Administration Ondansetron HCl 4 mg 10/31/19 07:39 10/31/19 08:12 Zofran IV 4 mg Q8H PRN Administration Nausea And Vomiting Sodium Chloride 10 ml 10/31/19 07:39 Sodium Chloride Flush Syringe 10 Ml IV PRN PRN LINE FLUSH
--- NOTE | 2019-11-01 18:42 | Progress Note ---
Assessment and Plan Assessment and plan: Patient is a 59 yo woman with a history of hypertension, hepatitis C with liver disease, tobacco dependency, depression with a suicidal attempt by intentionally drinking Ammonia, alcohol abuse, prior UDS positive for amphetamines, benzos and opiates who presents to [facility] ED with left sided weakness and progressive worsen constant dysarthria without any aggravating or relieving factors. She went to [facility] service around 11pm then she developed difficulty ambulating and required assistance from her spouse to get to the car. Her NIH score was 5. She was given tPA in ED. Currently, her speech is getting better but still difficult to understand and still slightly confused and drowsy. * CT head without contrast no acute findings * CTA head and neck IMPRESSION: 1. No acute intracranial abnormality. 2. No intracranial large vessel occlusion identified. 3. Approximately 50% stenosis of the bilateral intracranial internal carotid arteries in the cavernous ICA segments. 4. Bilateral flow-limiting stenoses of the carotid bulbs and proximal cervical internal carotid arteries due to calcified plaque, greater on the right. 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 Follow-up on current diagnosis. Overnight uneventful. Patient denies any chest pain, shortness breath, nausea/vomiting or severe headaches. Imaging, nursing note, chart, labs and old chart reviewed. Discussed with patient. Hospitalist Physical - Physical exam Narrative exam: Gen: WDWN, NAD, lethargic, Orientated x 3 HEENT: NCAT, EOMI, PERRL, OP Clear Neck: supple, no adenopathy, no thyromegaly, no JVD CVS/Heart: RRR, normal S1S2, pulses present bilaterally Chest/Lungs: CTA B, Symmetrical chest expansion, good air entry bilaterally GI/Abdomen: soft, NTND, good bowel sounds, no guarding or rebound /Bladder: no suprapubic tenderness, no CVA or paraspinal tenderness Extermity/Skin: no c/c/e, no obvious rash MSK: FROM x 4, mild 4/5 LUE strength Neuro: CN 2-12 grossly intact except speech and facial, no drift Psych: calm - Constitutional Vitals: Temp Pulse Resp BP Pulse Ox 97.9 F 83 18 169/78 98 11/01/19 12:35 11/01/19 12:35 11/01/19 12:35 11/01/19 12:35 11/01/19 16:30 General appearance: Present: no acute distress Results - Labs CBC & Chem 7: 10/31/19 02:20 10/31/19 02:20 Labs: Laboratory Last Values WBC 5.8 K/mm3 (4.5-11.0) 10/31/19 02:20 RBC 3.82 M/mm3 (3.65-5.03) 10/31/19 02:20 Hgb 13.4 gm/dl (10.1-14.3) 10/31/19 02:20 Hct 39.4 % (30.3-42.9) 10/31/19 02:20 MCV 103 fl (79-97) H 10/31/19 02:20 MCH 35 pg (28-32) H 10/31/19 02:20 MCHC 34 % (30-34) 10/31/19 02:20 RDW 15.3 % (13.2-15.2) H 10/31/19 02:20 Plt Count 118 K/mm3 (140-440) L 10/31/19 02:20 Lymph % (Auto) 37.1 % (13.4-35.0) H 10/31/19 02:20 [place] % (Auto) 6.5 % (0.0-7.3) 10/31/19 02:20 Eos % (Auto) 2.2 % (0.0-4.3) 10/31/19 02:20 Baso % (Auto) 0.6 % (0.0-1.8) 10/31/19 02:20 Lymph # 2.1 K/mm3 (1.2-5.4) 10/31/19 02:20 [place] # 0.4 K/mm3 (0.0-0.8) 10/31/19 02:20 Eos # 0.1 K/mm3 (0.0-0.4) 10/31/19 02:20 Baso # 0.0 K/mm3 (0.0-0.1) 10/31/19 02:20 Seg Neutrophils % 53.6 % (40.0-70.0) 10/31/19 02:20 Seg Neutrophils # 3.1 K/mm3 (1.8-7.7) 10/31/19 02:20 PT 13.7 Sec. (12.2-14.9) 10/31/19 02:20 INR 1.04 (0.87-1.13) 10/31/19 02:20 APTT 26.4 Sec. (24.2-36.6) 10/31/19 02:20 Thrombin Time 15.0 Sec. (15.1-19.6) L 10/31/19 02:20 Sodium 137 mmol/L (137-145) 10/31/19 02:20 Potassium 3.5 mmol/L (3.6-5.0) L 10/31/19 02:20 Chloride 97.7 mmol/L (98-107) L 10/31/19 02:20 Carbon Dioxide 25 mmol/L (22-30) 10/31/19 02:20 Anion Gap 18 mmol/L 10/31/19 02:20 BUN 13 mg/dL (7-17) 10/31/19 02:20 Creatinine 0.7 mg/dL (0.7-1.2) 10/31/19 02:20 Estimated GFR > 60 ml/min 10/31/19 02:20 BUN/Creatinine Ratio 19 % 10/31/19 02:20 Glucose 111 mg/dL (65-100) H 10/31/19 02:20 POC Glucose 102 (70-105) 10/31/19 01:59 Calcium 9.2 mg/dL (8.4-10.2) 10/31/19 02:20 Troponin T < 0.010 ng/mL (0.00-0.029) 10/31/19 02:20 Triglycerides 54 mg/dL (2-149) 11/01/19 07:26 Cholesterol 157 mg/dL (50-199) 11/01/19 07:26 LDL Cholesterol Direct 91 mg/dL (50-130) 11/01/19 07:26 HDL Cholesterol 73 mg/dL (40-59) H 11/01/19 07:26 Cholesterol/HDL Ratio 2.15 % 11/01/19 07:26 Urine Opiates Screen Presumptive positive 10/31/19 Unknown Urine Methadone Screen Presumptive negative 10/31/19 Unknown Ur Barbiturates Screen Presumptive negative 10/31/19 Unknown Ur Phencyclidine Scrn Presumptive negative 10/31/19 Unknown Ur Amphetamines Screen Presumptive negative 10/31/19 Unknown U Benzodiazepines Scrn Presumptive negative 10/31/19 Unknown Urine Cocaine Screen Presumptive negative 10/31/19 Unknown U Marijuana (THC) Screen Presumptive negative 10/31/19 Unknown Drugs of Abuse Note Disclamer 10/31/19 Unknown Active Medications - Current Medications Current Medications: Generic Name Dose Route Start Last Admin Trade Name Freq PRN Reason Stop Dose Admin Acetaminophen 650 mg 10/31/19 07:39 Tylenol PO Q4H PRN Pain, Mild (1-3) Aspirin 325 mg 11/01/19 10:00 11/01/19 12:02 Aspirin PO 325 mg QDAY CHELSEA Administration Atorvastatin Calcium 40 mg 10/31/19 22:00 10/31/19 22:07 Lipitor PO 40 mg QHS CHELSEA Administration Bisacodyl 10 mg 10/31/19 10:00 Dulcolax [place] QDAY PRN Constipation Nicotine 21 mg 10/31/19 14:00 11/01/19 12:02 Habitrol TD 21 mg QDAY CHELSEA Administration Ondansetron HCl 4 mg 10/31/19 07:39 10/31/19 08:12 Zofran IV 4 mg Q8H PRN Administration Nausea And Vomiting Sodium Chloride 10 ml 10/31/19 07:39 Sodium Chloride Flush Syringe 10 Ml IV PRN PRN LINE FLUSH Nutrition/Malnutrition Assess - Dietary Evaluation Nutrition/Malnutrition Findings: Nutrition Notes Start: 10/31/19 10:21 Freq: Status: Active Protocol: Document 10/31/19 10:21 BERTA (Rec: 10/31/19 10:22 BERTA [id number] [email or web address]) Nutrition Notes Need for Assessment generated from: MD Order,Education Initial or Follow up Brief Note Current Diagnosis Hypertension Other Pertinent Diagnosis (L) sided weakness, dysarthria Current Diet No diet ordered Subjective/Other Information RD consulted for NTR recommendations and diet education. Pt currently in the ED. Nutrition Intervention Follow-Up By: 11/02/19 Additional Comments F/U: diet advancement, diet education needs
--- NOTE | 2019-11-01 18:50 | Electroencephalogram Report ---
Electroencephalogram EEG Date of exam: 11/01/19 History: Patient is a 59 woman w/ h/o HTN, HCV, depression, who p/w slurred speech, left arm numbness, difficulty walking, and convulsion. Impression: 1. No seizures or epileptiform activity noted 2. Noted to have muscle and movement artifact during EEG recording. Description: The waking background shows an appropriate organization with well-defined anterior posterior voltage and frequency gradients. Posteriorly, there is a well-developed alpha rhythm of [8-9] Hz which is symmetrical. Anteriorly, there is a pattern of lower voltage and slightly irregular theta and beta range frequencies. Noted to have muscle artifact in region of F8-T6. Throughout, the recording there are no epileptiform abnormalities, focal or lateralizing features, or significant interhemispheric findings. Photic stimulation was performed, and no photic drive was noted. Hyperventilation was not performed. Interpretation: A normal EEG does not rule out seizures. Clinical correlation recommended.
[2019-11-02] MEDS ORDERED: LORazepam 2 MG/ML VIAL IV NR (07:52)
--- NOTE | 2019-11-02 08:44 | Progress Note ---
Assessment and Plan Assessment and plan: Patient is a 59 yo woman with a history of hypertension, hepatitis C with liver disease, tobacco dependency, depression with a suicidal attempt by intentionally drinking Ammonia, alcohol abuse, prior UDS positive for amphetamines, benzos and opiates who presents to [facility] ED with left sided weakness and progressive worsen constant dysarthria without any aggravating or relieving factors. She went to [facility] service around 11pm then she developed difficulty ambulating and required assistance from her spouse to get to the car. Her NIH score was 5. She was given tPA in ED. Currently, her speech is getting better but still difficult to understand and still slightly confused and drowsy. * CT head without contrast no acute findings * CTA head and neck IMPRESSION: 1. No acute intracranial abnormality. 2. No intracranial large vessel occlusion identified. 3. Approximately 50% stenosis of the bilateral intracranial internal carotid arteries in the cavernous ICA segments. 4. Bilateral flow-limiting stenoses of the carotid bulbs and proximal cervical internal carotid arteries due to calcified plaque, greater on the right. Acute Ischemic Stroke s/p TPA: stroke protocal used, admit to ICU consulted CCM, MRI pending called nurse s/p tPA received: protocol used, consulted Neurology, input noted Carotid Stenosis: consulted Vascular Surgery and Cardiology, input noted==>Right CEA tomorrow Acute metabolic encephalopathy due to stroke Tobacco dependency: child guidance counselor on stopping, offered and accepted nicotine patch Macrocytosis without anemia and thrombocytopenia due to chronic liver disease/Etoh related/hep C related: monitor cbc closely Hypokalemia: replete and monitor closley DVT ppx: scd only, no a/c x 24 hours post tPA full code 11/02/2019: mri brain was unable to be done yesterday, pt request something to calm her during MRI today, I called Dr. Alan Ann and asked can she have iv ativan prior to Right CEA today. Ok'd History Interval history: Patient was seen and examined. Follow-up on current diagnosis. Overnight uneventful. Patient denies any chest pain, shortness breath, nausea/vomiting or severe headaches. Imaging, nursing note, chart, labs and old chart reviewed. Discussed with patient. Hospitalist Physical - Physical exam Narrative exam: Gen: WDWN, NAD, lethargic, Orientated x 3 HEENT: NCAT, EOMI, PERRL, OP Clear Neck: supple, no adenopathy, no thyromegaly, no JVD CVS/Heart: RRR, normal S1S2, pulses present bilaterally Chest/Lungs: CTA B, Symmetrical chest expansion, good air entry bilaterally GI/Abdomen: soft, NTND, good bowel sounds, no guarding or rebound /Bladder: no suprapubic tenderness, no CVA or paraspinal tenderness Extermity/Skin: no c/c/e, no obvious rash MSK: FROM x 4, mild 4/5 LUE strength Neuro: CN 2-12 grossly intact except speech and facial, no drift Psych: calm - Constitutional Vitals: Temp Pulse Resp BP Pulse Ox 98.0 F 85 18 176/81 97 11/02/19 07:28 11/02/19 07:28 11/02/19 07:28 11/02/19 07:28 11/02/19 07:28 General appearance: Present: no acute distress Results - Labs CBC & Chem 7: 10/31/19 02:20 10/31/19 02:20 Labs: Laboratory Last Values WBC 5.8 K/mm3 (4.5-11.0) 10/31/19 02:20 RBC 3.82 M/mm3 (3.65-5.03) 10/31/19 02:20 Hgb 13.4 gm/dl (10.1-14.3) 10/31/19 02:20 Hct 39.4 % (30.3-42.9) 10/31/19 02:20 MCV 103 fl (79-97) H 10/31/19 02:20 MCH 35 pg (28-32) H 10/31/19 02:20 MCHC 34 % (30-34) 10/31/19 02:20 RDW 15.3 % (13.2-15.2) H 10/31/19 02:20 Plt Count 118 K/mm3 (140-440) L 10/31/19 02:20 Lymph % (Auto) 37.1 % (13.4-35.0) H 10/31/19 02:20 Mclean % (Auto) 6.5 % (0.0-7.3) 10/31/19 02:20 Eos % (Auto) 2.2 % (0.0-4.3) 10/31/19 02:20 Baso % (Auto) 0.6 % (0.0-1.8) 10/31/19 02:20 Lymph # 2.1 K/mm3 (1.2-5.4) 10/31/19 02:20 Mclean # 0.4 K/mm3 (0.0-0.8) 10/31/19 02:20 Eos # 0.1 K/mm3 (0.0-0.4) 10/31/19 02:20 Baso # 0.0 K/mm3 (0.0-0.1) 10/31/19 02:20 Seg Neutrophils % 53.6 % (40.0-70.0) 10/31/19 02:20 Seg Neutrophils # 3.1 K/mm3 (1.8-7.7) 10/31/19 02:20 PT 13.7 Sec. (12.2-14.9) 10/31/19 02:20 INR 1.04 (0.87-1.13) 10/31/19 02:20 APTT 26.4 Sec. (24.2-36.6) 10/31/19 02:20 Thrombin Time 15.0 Sec. (15.1-19.6) L 10/31/19 02:20 Sodium 137 mmol/L (137-145) 10/31/19 02:20 Potassium 3.5 mmol/L (3.6-5.0) L 10/31/19 02:20 Chloride 97.7 mmol/L (98-107) L 10/31/19 02:20 Carbon Dioxide 25 mmol/L (22-30) 10/31/19 02:20 Anion Gap 18 mmol/L 10/31/19 02:20 BUN 13 mg/dL (7-17) 10/31/19 02:20 Creatinine 0.7 mg/dL (0.7-1.2) 10/31/19 02:20 Estimated GFR > 60 ml/min 10/31/19 02:20 BUN/Creatinine Ratio 19 % 10/31/19 02:20 Glucose 111 mg/dL (65-100) H 10/31/19 02:20 POC Glucose 102 (70-105) 10/31/19 01:59 Calcium 9.2 mg/dL (8.4-10.2) 10/31/19 02:20 Troponin T < 0.010 ng/mL (0.00-0.029) 10/31/19 02:20 Triglycerides 54 mg/dL (2-149) 11/01/19 07:26 Cholesterol 157 mg/dL (50-199) 11/01/19 07:26 LDL Cholesterol Direct 91 mg/dL (50-130) 11/01/19 07:26 HDL Cholesterol 73 mg/dL (40-59) H 11/01/19 07:26 Cholesterol/HDL Ratio 2.15 % 11/01/19 07:26 Urine Opiates Screen Presumptive positive 10/31/19 Unknown Urine Methadone Screen Presumptive negative 10/31/19 Unknown Ur Barbiturates Screen Presumptive negative 10/31/19 Unknown Ur Phencyclidine Scrn Presumptive negative 10/31/19 Unknown Ur Amphetamines Screen Presumptive negative 10/31/19 Unknown U Benzodiazepines Scrn Presumptive negative 10/31/19 Unknown Urine Cocaine Screen Presumptive negative 10/31/19 Unknown U Marijuana (THC) Screen Presumptive negative 10/31/19 Unknown Drugs of Abuse Note Disclamer 10/31/19 Unknown Active Medications - Current Medications Current Medications: Generic Name Dose Route Start Last Admin Trade Name Freq PRN Reason Stop Dose Admin Acetaminophen 650 mg 10/31/19 07:39 Tylenol PO Q4H PRN Pain, Mild (1-3) Aspirin 325 mg 11/01/19 10:00 11/01/19 12:02 Aspirin PO 325 mg QDAY CHELSEA Administration Atorvastatin Calcium 40 mg 10/31/19 22:00 11/01/19 22:55 Lipitor PO 40 mg QHS CHELSEA Administration Bisacodyl 10 mg 10/31/19 10:00 11/01/19 22:56 Dulcolax WA 10 mg QDAY PRN Administration Constipation Lorazepam 1 mg 11/02/19 07:52 Ativan IV 11/02/19 09:00 ONCE NR Nicotine 21 mg 10/31/19 14:00 11/01/19 12:02 Habitrol TD 21 mg QDAY CHELSEA Administration Ondansetron HCl 4 mg 10/31/19 07:39 10/31/19 08:12 Zofran IV 4 mg Q8H PRN Administration Nausea And Vomiting Sodium Chloride 10 ml 10/31/19 07:39 11/01/19 22:56 Sodium Chloride Flush Syringe 10 Ml IV 10 ml PRN PRN Administration LINE FLUSH Nutrition/Malnutrition Assess - Dietary Evaluation Nutrition/Malnutrition Findings: Nutrition Notes Start: 10/31/19 10:21 Freq: Status: Active Protocol: Document 10/31/19 10:21 BERTA (Rec: 10/31/19 10:22 BERTA [id number] [email or web address]) Nutrition Notes Need for Assessment generated from: MD Order,Education Initial or Follow up Brief Note Current Diagnosis Hypertension Other Pertinent Diagnosis (L) sided weakness, dysarthria Current Diet No diet ordered Subjective/Other Information RD consulted for NTR recommendations and diet education. Pt currently in the ED. Nutrition Intervention Follow-Up By: 11/02/19 Additional Comments F/U: diet advancement, diet education needs
[2019-11-02] MEDS: ASPIRIN 325 MG TAB PO SCH (09:54)
--- NOTE | 2019-11-02 10:02 | Anesthesia Consultation ---
Anesthesia Consult and Med Hx Date of service: 11/02/19 - Airway Anesthetic Teeth Evaluation: Dentures ROM Head & Neck: Adequate Mental/Hyoid Distance: Adequate Mallampati Class: Class II - Pulmonary Exam CTA: Yes - Cardiac Exam Cardiac Exam: RRR - Pre-Operative Health Status ASA Pre-Surgery Classification: ASA4 Proposed Anesthetic Plan: General (HTN, Hep C, acute CVA, Smoker , ETOH abuse for GA ) - Pulmonary Hx Asthma: No Hx Pneumonia: No - Cardiovascular System Hx Hypertension: Yes - Endocrine Hx End Stage Renal Disease: No Hx Liver Disease: Yes (hepatitis C)
--- NOTE | 2019-11-02 10:02 | Anesthesia Day of Surgery ---
Anesthesia Day of Surgery - Day of Surgery Patient Examined: Yes Patient H&P Reviewed: Yes Patient is NPO: Yes
--- NOTE | 2019-11-02 10:29 | Progress Note ---
Assessment and Plan Pre-operative cardiac assessment Acute CVA s/p tPA Severe stenosis of the right carotid artery Hypertension A cardiac catheterization done in 2014 demonstrated no significant coronary artery disease An echocardiogram this admission reports normal left ventricular systolic function with ejection fraction 50-55%. The patient is at low-moderate perioperative cardiac risk. Okay to proceed with surgery. We will obtain postoperative ECGs. Subjective Date of service: 11/02/19 Principal diagnosis: Stroke Interval history: Patient denies chest pain, unusual shortness of breath and palpitations. For planned right CEA surgery today. Objective Vital Signs Temp Pulse Resp BP Pulse Ox 11/02/19 07:28 98.0 F 85 18 176/81 97 11/02/19 05:06 98.0 F 90 20 155/88 98 11/01/19 23:24 98.0 F 86 20 171/76 99 11/01/19 20:33 98.6 F 86 20 188/70 97 11/01/19 20:20 84 11/01/19 18:15 97.4 F L 83 18 142/69 91 11/01/19 16:30 98 11/01/19 12:35 97.9 F 83 18 169/78 99 - Physical Examination General: No Apparent Distress HEENT: Positive: PERRL Neck: Positive: trachea midline Cardiac: Positive: Reg Rate and Rhythm Lungs: Positive: Decreased Breath Sounds Neuro: Positive: Grossly Intact Extremities: Absent: edema
[2019-11-02] MEDS ORDERED: PROTAMINE SULFATE 50 MG/5 ML INJ ONE (10:46)
[2019-11-02] MEDS ORDERED: LIDOCAINE (1%) 10 MG/1 ML VIAL 20 ML MDV ONE (10:46)
[2019-11-02] MEDS ORDERED: GELATIN SPONGE SIZE 100 TP ONE (10:46)
[2019-11-02] MEDS ORDERED: HEPARIN 10,000 UNITS/10 ML VIAL ONE ×2 (10:46→13:26)
[2019-11-02] MEDS ORDERED: THROMBIN (RECOMBINANT) 5,000 UNIT VIAL TP ONE ×2 (10:47→12:24)
[2019-11-02] MEDS ORDERED: SODIUM CHLORIDE 0.9% 500 ML 500 ML ONE (10:47)
[2019-11-02] MEDS ORDERED: ceFAZolin/STERILE WATER 2 GM/20 ML SYRINGE IV NR (10:49)
[2019-11-02] MEDS ORDERED: MIDAZOLAM 2 MG/2 ML INJ IV NR (11:00)
[2019-11-02] MEDS ORDERED: LACTATED RINGERS 1,000 ML IV SCH (11:00)
[2019-11-02] MEDS ORDERED: ETOMIDATE 20 MG/10 ML INJ IV ONE (11:10)
[2019-11-02] MEDS ORDERED: ROCURONIUM 50 MG/5 ML INJ IV ONE (11:11)
[2019-11-02] MEDS ORDERED: fentaNYL 100 MCG/2 ML INJ ONE ×2 (11:11→15:03)
[2019-11-02] MEDS ORDERED: PROPOFOL 200 MG/20 ML VIAL IV ONE (11:19)
[2019-11-02] MEDS ORDERED: PHENYLEPHRINE 10 MG/1 ML INJ SDV ONE (11:35)
[2019-11-02] MEDS ORDERED: LIDOCAINE MPF (2%) 20 MG/1 ML VIAL 5 ML ONE (11:35)
[2019-11-02] MEDS ORDERED: SODIUM CHLORIDE 0.9% IRR 1,000 ML BOTTLE IR ONE (12:24)
[2019-11-02] MEDS ORDERED: LIDOCAINE (1%) 10 MG/1 ML VIAL 20 ML MDV INFILTRATI ONE (12:24)
[2019-11-02] MEDS ORDERED: HEPARIN 10,000 UNITS/10 ML VIAL IV ONE (12:24)
[2019-11-02] MEDS ORDERED: NITROGLYCERIN DRIP 50 MG/250 ML BOTTLE ONE (12:36)
--- NOTE | 2019-11-02 15:44 | Post Operative Note ---
Date of procedure: 11/02/19 Pre-op diagnosis: Symptomatic Right-sided Carotid Stenosis Post-op diagnosis: same Procedure: Right Carotid Endarterectomy and Patch Angioplasty Anesthesia: GETA Surgeon: COMFORT ESCALONA Estimated blood loss: other (100ml) Pathology: none Condition: stable Disposition: PACU
--- NOTE | 2019-11-02 16:18 | Post Anesthesia Evaluation ---
- Post Anesthesia Evaluation Patient Participated: Yes Airway Patent: Yes Stable Respiratory Function: Yes Nausea/Vomiting: No Temp > 96.8F: Yes Pain Manageable: Yes Adequeate Hydration: Yes Anesthesia Complications: No Block Receding Appropriately: Not Applicable Patient on Ventilator: No
--- NOTE | 2019-11-02 16:46 | Operative Report ---
STAFF SURGEON: Dr. Gregory Gonzales. PREOPERATIVE DIAGNOSIS: Symptomatic right sided carotid stenosis. POSTOPERATIVE DIAGNOSIS: Symptomatic right sided carotid stenosis. PROCEDURE PERFORMED: Right carotid endarterectomy and patch angioplasty. COMPLICATIONS: None. ESTIMATED BLOOD LOSS: 100 mL. ANESTHESIA: General. INDICATIONS FOR PROCEDURE: This is a 59-year-old female, currently hospitalized after acute cerebrovascular accident with left-sided extremity weakness. The patient had a workup which demonstrated a significant stenosis in her carotid arteries bilaterally. With this, it was felt that the patient would benefit from a surgical intervention. The patient and the patient's family were explained the risks, benefits and alternatives of procedure, expressed understanding and wished to proceed. DESCRIPTION OF PROCEDURE: After appropriate consent was obtained, the patient was brought back to the operating room and placed on the operating table in supine position. The patient was given appropriate medication for general anesthesia, was intubated without difficulty. The right neck and chest were prepped and draped in usual sterile fashion with ChloraPrep. Appropriate preoperative antibiotics were administered. Appropriate timeout was performed indicating the correct patient, procedure, and site of procedure. We then began the operation by making a longitudinal incision along the anterior border of the sternocleidomastoid muscle. This was carried through the subcutaneous tissue with a combination of blunt dissection and electrocautery. Dissection was continued through the platysma muscle with electrocautery and then along the anterior border of the sternocleidomastoid muscle. Self-retaining retractors were placed. Dissection was continued along the anterior border of the internal jugular vein. The facial vein was identified, clamped, transected, and ligated x 2 with 3-0 silk suture. This allowed to retract the internal jugular vein posteriorly. The vagus nerve was identified and protected throughout the case. Then dissection was continued onto the common carotid artery, which was exposed and mobilized and controlled with umbilical tape and Angela and using a red rubber catheter. Dissection was then continued distally. The ansa cervicalis and hypoglossal nerve were identified. These both had to be mobilized. The ansa was clipped, was transected purposely to assist with exposure. A vessel loop was placed around the hypoglossal to protect it from dissection. To get further exposure, the digastric muscle was transected and then this allowed to expose the internal, external, and superior thyroid artery which were all controlled with vessel loops. The patient was then given unfractionated heparin intravenously and ACTs were obtained throughout the remainder of the case for adequate anticoagulation. After appropriate timeout had elapsed, a vascular clamp was placed on the internal carotid artery, the common and then external carotid arteries. We then proceeded to make a longitudinal arteriotomy on the common. It was extended onto the internal carotid artery distally. I then proceeded to take a 10-Honduran argyle shunt and I proceeded to place it into the internal carotid artery, allowed to back bleed and then was placed into the common carotid artery without difficulty. After the shunt was in place, we then proceeded to perform our endarterectomy using a Fishers elevator, started on the common and then extended onto the external and proceeded to perform eversion endarterectomy of the external carotid artery and then extended our endarterectomy on to the internal carotid artery, which feathered out nicely distally. All the loose material were removed with a fine mosquito. Once satisfied with the endarterectomized surface, I then proceeded to tack the distal flap with interrupted 7-0 Prolene sutures. Once that was complete, we then proceeded to perform our patch angioplasty with a bovine pericardium using a running 6-0 Prolene suture. Prior to completion of the anastomosis, we then proceeded to clamp the shunt with two straight clamps, transected and then proceeded to remove the part of the shunt in the internal carotid artery first and allowed to backbleed and then a vascular clamp was placed and then shunt out. The common carotid artery was then removed, again allowed to forward bleed and then was clamped. The external was allowed to backbleed some. The carotid was then flushed with heparinized saline. We then completed the anastomosis. After completion, the clamp was removed and the external carotid artery allowed to back bleed and then the common was opened for several beats and then the internal carotid artery clamp was then removed. Doppler was brought on the field, which demonstrated adequate signals in the internal, external, and common carotid arteries. With that, the patient was then given protamine for heparinization reversal and then we looked to obtain hemostasis along the suture line with hemostatic agents. Once we were satisfied with hemostasis, we then proceeded to make a stab incision in the inferior portion of the wound and a #7 flat RAVI was then brought through the stab incision and was sutured in place with 3-0 Ethilon and then proceeded to close the wound by approximating the sternocleidomastoid muscle with interrupted 2-0 PDS and the platysmal muscle was then approximated with a running 3-0 PDS. Skin was approximated with 4-0 Monocryl and Dermabond dressing. Appropriate drain dressing was placed. The patient then emerged from general anesthesia neurologically intact and was then transferred to recovery in stable condition. All the sponges, instrument and needle counts were correct at completion of the operation. JOB# [id number] HOLLIE/DREW
[2019-11-02] MEDS ORDERED: SODIUM CHLORIDE 0.9% 1000 ML 1,000 ML ONE (16:48)
[2019-11-02] MEDS: HYDROmorphone 1 MG/1 ML INJ IV PRN ×3 (16:50→17:20)
[2019-11-02] MEDS: MIDAZOLAM 2 MG/2 ML INJ IV PRN (17:10)
[2019-11-02] MEDS ORDERED: ONDANSETRON 4 MG/2 ML INJ IV PRN (17:58)
[2019-11-02] MEDS ORDERED: HYDROmorphone 1 MG/1 ML INJ IV PRN (17:58)
[2019-11-02] MEDS ORDERED: DOPamine/D5W 800 MG/250 ML 800 MG/250 ML BAG IV SCH (17:58)
[2019-11-02] MEDS ORDERED: NITROPRUSSIDE 50 MG in DEXTROSE 5% IN WATER 248 ML IV SCH (18:04)
--- NOTE | 2019-11-02 19:33 | Progress Note ---
Assessment and Plan Patient is a 59 woman w/ h/o HTN, HCV, depression, who p/w slurred speech, left arm numbness, difficulty walking, and convulsion. According to the patient's clinical findings, it is likely that she has had an ischemic stroke or a TIA. Patient alternatively may have also had a seizure, or may have had jessica's paralysis 2/2 seizure. Plan: 1. Stroke: - MRI pending- patient reportedly had severe anxiety when in MRI, even with at tam[place] prior to MRI. - CT head unremarkable - CTA head/neck: 80% stenosis in Rt. Carotid bulb, and 70% stenosis in left Carotid bulb - S/p Rt. carotid endarterectomy today. - EEG: no seizure or epileptiform activity. - Echo: EF 50-55%, bubble study negative, LA normal size. - Cont. ASA. - Cont. statin. LDL goal <70. - PT/OT/ST - DVT Ppx: recommend lovenox. - B/l LE venous doppler: no DVT. 2. Hypertension: - Recommend target normotension. - Will sign off as I am not covering neurology service over the weekend. Recommend consult neurologist covering service over the weekend for further dustin rologic monitoring and management. Thank you for allowing me to take part in the care of this patient. Eron Gardner MD Neurology Subjective Date of service: 11/02/19 Principal diagnosis: Stroke Interval history: Patient had carotid endarterectomy. Patient seen post-surgery in ICU. She is awake, alert, no localizing neurologic deficits noted. Objective - Exam Narrative Exam: Patient is awake, mildly lethargic as she recently came to ICU after surgery, however was alert enough to tell her name and answer questions, oriented 4, follows complex commands. No dysarthria or aphasia noted. PERRL, EOMI, VFF, no facial weakness noted, bilaterally intact light touch, tongue midline. 5/5 strength in all extremities. Noted to have tenderness in b/l LE below knee level. Bilaterally intact to light touch in all extremities. Bilaterally intact to finger to nose and heel to lagun[place]. 2+ reflexes throughout. - Vital Sign Vital Signs - 12hr 11/02/19 11/02/19 11/02/19 09:55 10:00 15:50 Temperature 98 F 98 F 98.9 F Pulse Rate 82 82 82 Respiratory 18 18 18 Rate Blood Pressure 145/73 145/73 157/68 O2 Sat by Pulse 98 98 98 Oximetry 11/02/19 11/02/19 11/02/19 15:55 16:00 16:05 Temperature Pulse Rate 80 77 78 Respiratory 21 15 16 Rate Blood Pressure 153/67 152/66 154/60 O2 Sat by Pulse 97 98 99 Oximetry 11/02/19 11/02/19 11/02/19 16:10 16:15 16:30 Temperature Pulse Rate 78 79 78 Respiratory 15 17 17 Rate Blood Pressure 158/65 158/63 162/63 O2 Sat by Pulse 98 99 99 Oximetry 11/02/19 11/02/19 11/02/19 16:45 16:50 17:00 Temperature 97.9 F Pulse Rate 77 80 Respiratory 18 15 20 Rate Blood Pressure 164/66 O2 Sat by Pulse 98 99 Oximetry 11/02/19 11/02/19 11/02/19 17:15 17:20 17:45 Temperature Pulse Rate 79 Respiratory 18 16 17 Rate Blood Pressure 172/79 O2 Sat by Pulse 97 Oximetry 11/02/19 11/02/19 18:00 18:20 Temperature Pulse Rate 78 81 Respiratory 16 Rate Blood Pressure 157/82 170/80 O2 Sat by Pulse 98 Oximetry - General Apperance Constitutional: comfortable - EENT EENT: ATNC, PERRL, mucous membranes moist, hearing intact, vision intact - Respiratory Respiratory: lungs clear, normal breath sounds - Cardiovascular Cardiovascular: regular rate, normal S1, normal S2 Extremities: no clubbing, cyanosis, no inflammation - Gastrointestinal Gastrointestinal: normoactive bowel sounds, soft, non-tender - Integumentary Integumentary: normal - Musculoskeletal Musculoskeletal: no fluid collection, normal range of motion - Psychiatric Psychiatric: mood/affect appropriate - Laboratory Findings CBC and BMP: 10/31/19 02:20 10/31/19 02:20 Abnormal Lab Findings: Abnormal Labs 10/31/19 10/31/19 10/31/19 02:20 02:20 02:20 MCV 103 H MCH 35 H RDW 15.3 H Plt Count 118 L Lymph % (Auto) 37.1 H Thrombin Time 15.0 L Potassium 3.5 L Chloride 97.7 L Glucose 111 H HDL Cholesterol 11/01/19 07:26 MCV MCH RDW Plt Count Lymph % (Auto) Thrombin Time Potassium Chloride Glucose HDL Cholesterol 73 H
[2019-11-02] MEDS: DOCUSATE SODIUM 100 MG CAP PO SCH (23:04)
[2019-11-02] MEDS: ceFAZolin/NS 1 GM/50 ML 1 GM/50 ML BAG IV SCH (23:11)
[2019-11-02] MEDS: NICOTINE 21 MG/24 HR PATCH TD SCH (23:32)
[2019-11-03] MEDS: oxyCODONE /ACETAMINOPHEN 5-325MG TAB PO PRN ×3 (01:12→20:43)
[2019-11-03] MEDS: MIDAZOLAM 2 MG/2 ML INJ IV PRN (01:13)
[2019-11-03] MEDS: ceFAZolin/NS 1 GM/50 ML 1 GM/50 ML BAG IV SCH (01:32)
[2019-11-03] MEDS: SODIUM CHLORIDE 0.9% 1000 ML 1,000 ML IV SCH ×2 (01:42→12:42)
--- NOTE | 2019-11-03 10:24 | Progress Note ---
Assessment and Plan POD #1 Right CEA No focal deficits Frontal headache that improves when BP lower. On Nipride for BP, will restart home medication to help control blood pressure as well as antidepressants D/C RAVI drain D/C White Increase activity Would keep in ICU until BP controlled Subjective Date of service: 11/03/19 Principal diagnosis: Stroke Interval history: POD# 1 s/p right CEA. Complaining of right neck discomfort and a frontal head ache but no other complaints. Headache seems to improve when blood pressure is lower. No other complaints. Objective - Constitutional Vitals: Vital Signs - 12hr //20 /02/17 00:00 04:00 Temperature 97.6 F 98.4 F General appearance: Present: no acute distress - EENT ENT: other (tongue is midline) - Neck Neck: other (right neck incision C/D/I without hematoma, drain with serosanguinous drainage) - Respiratory Respiratory effort: normal - Breasts Breasts: deferred - Cardiovascular Rhythm: regular Extremities: no ischemia - Gastrointestinal General gastrointestinal: Present: soft - Musculoskeletal Musculoskeletal: strength equal bilaterally - Labs CBC & Chem 7: 10/31/19 02:20 10/31/19 02:20 Medications & Allergies - Medications Allergies/Adverse Reactions: Allergies No Known Allergies Allergy (Unverified 11/18/14 11:24) Home Medications: Home Medications Medication Instructions Recorded Confirmed Last Taken Type Dicyclomine [Bentyl] 20 mg PO QID 11/18/14 01/26/18 2 Days Ago History ~01/24/18 20 Trazodone HCl [traZODone] 300 mg PO QHS 11/18/14 01/26/18 2 Days Ago History ~01/24/18 300 Venlafaxine HCl [Venlafaxine ER] 150 mg PO QDAY 11/18/14 01/26/18 2 Days Ago History ~01/24/18 1 buPROPion HCL [buPROPion] 450 mg PO DAILY 11/18/14 01/26/18 2 Days Ago History ~01/24/18 450 MG Pantoprazole [Protonix] 40 mg PO QDAY #30 tablet 11/21/14 01/26/18 2 Days Ago Rx ~01/24/18 40 amLODIPine 5 mg PO QDAY #30 tablet 11/21/14 01/26/18 2 Days Ago Rx ~01/24/18 5 carvediloL [Coreg] 12.5 mg PO BID #60 tablet 11/21/14 01/26/18 2 Days Ago Rx ~01/24/18 12.5 MG Triamter/Hctz 75-50 mg (Nf) 1 tab PO QDAY #30 tablet 02/28/16 01/26/18 2 Days Ago Rx [Maxzide 75-50 mg] ~01/24/18 1 Active Medications: Generic Name Dose Route Start Last Admin Trade Name Freq PRN Reason Stop Dose Admin Acetaminophen 650 mg 10/31/19 07:39 Tylenol PO Q4H PRN Pain, Mild (1-3) Amlodipine Besylate 5 mg 11/03/19 11:00 Amlodipine PO QDAY [facility] Aspirin 325 mg 11/01/19 10:00 11/02/19 09:54 Aspirin PO Not Given QDAY [facility] Atorvastatin Calcium 40 mg 10/31/19 22:00 11/02/19 23:04 Lipitor PO 40 mg QHS [facility] Administration Bisacodyl 10 mg 10/31/19 10:00 11/01/19 22:56 Dulcolax [place] 10 mg QDAY PRN Administration Constipation Bupropion HCl 450 mg 11/04/19 10:00 Wellbutrin Xl PO QDAY [facility] Carvedilol 12.5 mg 11/03/19 11:00 Coreg PO BID [facility] Docusate Sodium 100 mg 11/02/19 22:00 11/02/19 23:04 Colace PO 100 mg BID [facility] Administration Hydromorphone HCl 0.5 mg 11/02/19 17:58 11/02/19 23:05 Dilaudid IV 0.5 mg Q3H PRN Administration Pain , Severe (7-10) Sodium Chloride 1,000 mls @ 100 mls/hr 11/02/19 17:58 11/03/19 01:42 Nacl 0.9% 1000 Ml IV 100 mls/hr DIRECT [facility] Administration Dopamine HCl/Dextrose 800 mg in 250 mls @ 2.296 mls/hr 11/02/19 17:58 Intropin Drip 800 Mg/D5w 250 Ml IV TITR [facility] Protocol 2 MCG/KG/MIN Sodium Nitroprusside 50 mg/ 250 mls @ 4.593 mls/hr 11/02/19 18:04 11/03/19 01:00 Dextrose IV 1 mcg/kg/min TITR [facility] 18.371 mls/hr Titration Protocol 0.25 MCG/KG/MIN Nicotine 21 mg 10/31/19 14:00 11/02/19 23:32 Habitrol TD Not Given QDAY [facility] Ondansetron HCl 4 mg 10/31/19 07:39 10/31/19 08:12 Zofran IV 4 mg Q8H PRN Administration Nausea And Vomiting Ondansetron HCl 4 mg 11/02/19 17:58 Zofran IV Q8H PRN Nausea And Vomiting Oxycodone/Acetaminophen 2 tab 11/02/19 17:58 11/03/19 09:07 Percocet 5/325 PO 2 tab Q4H PRN Administration Pain, Moderate (4-6) Pantoprazole Sodium 40 mg 11/03/19 11:00 Protonix PO QDAY [facility] Sodium Chloride 10 ml 10/31/19 07:39 11/01/19 22:56 Sodium Chloride Flush Syringe 10 Ml IV 10 ml PRN PRN Administration LINE FLUSH Triamterene/HCTZ 2 each 11/03/19 11:00 Maxzide-25 PO QAM [facility] Venlafaxine HCl 150 mg 11/03/19 11:00 Effexor Xr PO QDAY [facility]
[2019-11-03] MEDS: ASPIRIN 325 MG TAB PO SCH (10:57)
[2019-11-03] MEDS: NICOTINE 21 MG/24 HR PATCH TD SCH (10:57)
[2019-11-03] MEDS: DOCUSATE SODIUM 100 MG CAP PO SCH ×2 (10:58→22:02)
[2019-11-03] MEDS: PANTOPRAZOLE 40 MG TAB PO SCH (10:58)
[2019-11-03] MEDS: amLODIPine 5 MG TAB PO SCH (10:58)
[2019-11-03] MEDS: carvediloL 12.5 MG TAB PO SCH ×2 (10:58→22:02)
--- NOTE | 2019-11-03 12:27 | Consultation ---
History of Present Illness - Reason for Consult Consult date: 11/03/19 Post Surgical Evaluation Requesting physician: COMFORT ESCALONA - History of Present Illness 59 y/o female s/p CEA. Awake and alert. BP elevated so currently on Nipride. Restarted oral meds this am so titrating down. Past History Past Medical History: GERD, other (HTN, HCV, depression, peripheral vascular disease) Past Surgical History: No surgical history Social history: smoking Family history: no significant family history Medications and Allergies Allergies Allergy/AdvReac Type Severity Reaction Status Date / Time No Known Allergies Allergy Unverified 11/18/14 11:24 Home Medications Medication Instructions Recorded Confirmed Last Taken Type Dicyclomine [Bentyl] 20 mg PO QID 11/18/14 01/26/18 2 Days Ago History ~01/24/18 20 Trazodone HCl [traZODone] 300 mg PO QHS 11/18/14 01/26/18 2 Days Ago History ~01/24/18 300 Venlafaxine HCl [Venlafaxine ER] 150 mg PO QDAY 11/18/14 01/26/18 2 Days Ago History ~01/24/18 1 buPROPion HCL [buPROPion] 450 mg PO DAILY 11/18/14 01/26/18 2 Days Ago History ~01/24/18 450 MG Pantoprazole [Protonix] 40 mg PO QDAY #30 tablet 11/21/14 01/26/18 2 Days Ago Rx ~01/24/18 40 amLODIPine 5 mg PO QDAY #30 tablet 11/21/14 01/26/18 2 Days Ago Rx ~01/24/18 5 carvediloL [Coreg] 12.5 mg PO BID #60 tablet 11/21/14 01/26/18 2 Days Ago Rx ~01/24/18 12.5 MG Triamter/Hctz 75-50 mg (Nf) 1 tab PO QDAY #30 tablet 02/28/16 01/26/18 2 Days Ago Rx [Maxzide 75-50 mg] ~01/24/18 1 Active Meds: Active Medications Acetaminophen (Tylenol) 650 mg PO Q4H PRN PRN Reason: Pain, Mild (1-3) Amlodipine Besylate (Amlodipine) 5 mg PO QDAY [facility] Last Admin: 11/03/19 10:58 Dose: 5 mg Documented by: Aspirin (Aspirin) 325 mg PO QDAY [facility] Last Admin: 11/03/19 10:57 Dose: 325 mg Documented by: Atorvastatin Calcium (Lipitor) 40 mg PO QHS [facility] Last Admin: 11/02/19 23:04 Dose: 40 mg Documented by: Bisacodyl (Dulcolax) 10 mg UT QDAY PRN PRN Reason: Constipation Last Admin: 11/01/19 22:56 Dose: 10 mg Documented by: Bupropion HCl (Wellbutrin Xl) 450 mg PO QDAY [facility] Carvedilol (Coreg) 12.5 mg PO BID [facility] Last Admin: 11/03/19 10:58 Dose: 12.5 mg Documented by: Diphenhydramine HCl (Benadryl) 25 mg IV Q6H PRN PRN Reason: Itching Docusate Sodium (Colace) 100 mg PO BID [facility] Last Admin: 11/03/19 10:58 Dose: 100 mg Documented by: Famotidine (Pepcid) 20 mg IV QDAY [facility] Hydromorphone HCl (Dilaudid) 0.5 mg IV Q3H PRN PRN Reason: Pain , Severe (7-10) Last Admin: 11/02/19 23:05 Dose: 0.5 mg Documented by: Sodium Chloride (Nacl 0.9% 1000 Ml) 1,000 mls @ 100 mls/hr IV DIRECT [facility] Last Admin: 11/03/19 01:42 Dose: 100 mls/hr Documented by: Dopamine HCl/Dextrose (Intropin Drip 800 Mg/D5w 250 Ml) 800 mg in 250 mls @ 2.296 mls/hr IV TITR [facility]; Protocol Sodium Nitroprusside 50 mg/ (Dextrose) 250 mls @ 4.593 mls/hr IV TITR [facility]; Protocol Last Titration: 11/03/19 01:00 Dose: 1 mcg/kg/min, 18.371 mls/hr Documented by: Nicotine (Habitrol) 21 mg TD QDAY [facility] Last Admin: 11/03/19 10:57 Dose: 21 mg Documented by: Ondansetron HCl (Zofran) 4 mg IV Q8H PRN PRN Reason: Nausea And Vomiting Oxycodone/Acetaminophen (Percocet 5/325) 2 tab PO Q4H PRN PRN Reason: Pain, Moderate (4-6) Last Admin: 11/03/19 09:07 Dose: 2 tab Documented by: Pantoprazole Sodium (Protonix) 40 mg PO QDAY [facility] Last Admin: 11/03/19 10:58 Dose: 40 mg Documented by: Sodium Chloride (Sodium Chloride Flush Syringe 10 Ml) 10 ml IV PRN PRN PRN Reason: LINE FLUSH Last Admin: 11/01/19 22:56 Dose: 10 ml Documented by: Triamterene/HCTZ (Maxzide-25) 2 each PO QAM [facility] Venlafaxine HCl (Effexor Xr) 150 mg PO QDAY [facility] Review of Systems All systems: negative Exam - Constitutional Vitals: Temp Pulse Resp BP Pulse Ox 97.8 F 106 H 21 142/109 93 11/03/19 08:00 11/03/19 10:58 11/02/19 18:30 11/03/19 10:58 11/02/19 20:11 Results - Labs CBC & Chem 7: 10/31/19 02:20 10/31/19 02:20 Assessment and Plan 59 y/o female status post CEA admitted to ICU for observation and now hypertensive 1. Restart oral medications 2. Wean Nipride off 3. Once off, should be stable for floor. CCT 31 minutes.
[2019-11-03] MEDS: diphenhydrAMINE 50 MG/ML VIAL IV PRN (12:31)
[2019-11-03] MEDS: TRIAMTER/HCTZ 37.5-25 MG TAB PO SCH (13:13)
[2019-11-03] MEDS: VENLAFAXINE XR 75 MG CAP PO SCH (13:14)
--- NOTE | 2019-11-03 14:23 | Progress Note ---
Assessment and Plan - Patient Problems (1) Stroke Current Visit: Yes Status: Acute Plan to address problem: Patient is status post carotid endarterectomy, postoperative day one cardiac status is stable and asymptomatic. Subjective Date of service: 11/03/19 Principal diagnosis: Stroke Interval history: Patient is awake and alert, comfortable status post right carotid endarterectomy. No chest pain, no cardiac complaints. On telemetry he is in normal sinus rhythm at 87, blood pressure is 103 systolic. Objective Vital Signs Temp Pulse Resp BP Pulse Ox 11/03/19 12:00 98.4 F 11/03/19 10:58 106 H 142/109 11/03/19 08:00 97.8 F 11/03/19 04:00 98.4 F 11/03/19 00:00 97.6 F 11/02/19 22:00 84 11/02/19 20:11 93 11/02/19 20:00 97.9 F 11/02/19 18:30 81 21 145/66 98 11/02/19 18:20 81 170/80 11/02/19 18:15 80 16 161/70 98 11/02/19 18:00 78 16 157/82 98 11/02/19 17:45 79 17 172/79 97 11/02/19 17:20 16 11/02/19 17:15 18 11/02/19 17:00 80 20 99 11/02/19 16:50 15 11/02/19 16:45 97.9 F 77 18 164/66 98 11/02/19 16:30 78 17 162/63 99 11/02/19 16:15 79 17 158/63 99 11/02/19 16:10 78 15 158/65 98 11/02/19 16:05 78 16 154/60 99 11/02/19 16:00 77 15 152/66 98 11/02/19 15:55 80 21 153/67 97 11/02/19 15:50 98.9 F 82 18 157/68 98 - Physical Examination General: No Apparent Distress HEENT: Positive: PERRL Neck: Positive: trachea midline Cardiac: Positive: Reg Rate and Rhythm Lungs: Positive: clear to auscultation Neuro: Positive: Grossly Intact Abdomen: Positive: Soft Skin: Positive: Clear Extremities: Absent: edema
[2019-11-03] MEDS ORDERED: hydrALAZINE 20 MG/1 ML INJ IV PRN (14:37)
--- NOTE | 2019-11-03 14:42 | Progress Note ---
Assessment and Plan Assessment and plan: Patient is a 59 yo woman with a history of hypertension, hepatitis C with liver disease, tobacco dependency, depression with a suicidal attempt by intentionally drinking Ammonia, alcohol abuse, prior UDS positive for amphetamines, benzos and opiates who presents to [facility] ED with left sided weakness and progressive worsen constant dysarthria without any aggravating or relieving factors. She went to [facility] service around 11pm then she developed difficulty ambulating and required assistance from her spouse to get to the car. Her NIH score was 5. She was given tPA in ED. Currently, her speech is getting better but still difficult to understand and still slightly confused and drowsy. * CT head without contrast no acute findings * CTA head and neck IMPRESSION: 1. No acute intracranial abnormality. 2. No intracranial large vessel occlusion identified. 3. Approximately 50% stenosis of the bilateral intracranial internal carotid arteries in the cavernous ICA segments. 4. Bilateral flow-limiting stenoses of the carotid bulbs and proximal cervical internal carotid arteries due to calcified plaque, greater on the right. s/p Right CEA: Vascular surgery is following Acute Ischemic Stroke s/p TPA: stroke protocal used, admit to ICU consulted CCM, MRI unable to be completed with 1 mg iv Ativan, s/p tPA received: protocol used, consulted Neurology, input noted Acute metabolic encephalopathy due to stroke Tobacco dependency: quitline counselor on stopping, offered and accepted nicotine patch Macrocytosis without anemia and thrombocytopenia due to chronic liver disease/Etoh related/hep C related: monitor cbc closely Hypokalemia: replete and monitor closley DVT ppx: scd only, no a/c x 24 hours post tPA full code d/c nitroprusside drip, d/c NSS at 100mh/hr, use iv labetalol prn transfer to tele repeat CT head s/p tPA, unable to get MRI head even after 1 mg ativan given, due to patient's anxiety/claustrophobia CCT 35 minutes History Interval history: Patient was seen and examined. Follow-up on current diagnosisn CVA s/p tPA and Right CEA. Overnight uneventful. Patient denies any chest pain, shortness breath, nausea/vomiting or severe headaches. Imaging, nursing note, chart, labs and old chart reviewed. Discussed with patient. Hospitalist Physical - Physical exam Narrative exam: Gen: WDWN, NAD, lethargic, Orientated x 3 HEENT: NCAT, EOMI, PERRL, OP Clear Neck: supple, no adenopathy, no thyromegaly, no JVD CVS/Heart: RRR, normal S1S2, pulses present bilaterally Chest/Lungs: CTA B, Symmetrical chest expansion, good air entry bilaterally GI/Abdomen: soft, NTND, good bowel sounds, no guarding or rebound /Bladder: no suprapubic tenderness, no CVA or paraspinal tenderness Extermity/Skin: no c/c/e, no obvious rash MSK: FROM x 4, mild 4/5 LUE strength Neuro: CN 2-12 grossly intact except speech and facial, no drift Psych: calm - Constitutional Vitals: Temp Pulse Resp BP Pulse Ox 98.4 F 106 H 21 142/109 93 11/03/19 12:00 11/03/19 10:58 11/02/19 18:30 11/03/19 10:58 11/02/19 20:11 General appearance: Present: no acute distress Results - Labs CBC & Chem 7: 10/31/19 02:20 10/31/19 02:20 Labs: Laboratory Last Values WBC 5.8 K/mm3 (4.5-11.0) 10/31/19 02:20 RBC 3.82 M/mm3 (3.65-5.03) 10/31/19 02:20 Hgb 13.4 gm/dl (10.1-14.3) 10/31/19 02:20 Hct 39.4 % (30.3-42.9) 10/31/19 02:20 MCV 103 fl (79-97) H 10/31/19 02:20 MCH 35 pg (28-32) H 10/31/19 02:20 MCHC 34 % (30-34) 10/31/19 02:20 RDW 15.3 % (13.2-15.2) H 10/31/19 02:20 Plt Count 118 K/mm3 (140-440) L 10/31/19 02:20 Lymph % (Auto) 37.1 % (13.4-35.0) H 10/31/19 02:20 [place] % (Auto) 6.5 % (0.0-7.3) 10/31/19 02:20 Eos % (Auto) 2.2 % (0.0-4.3) 10/31/19 02:20 Baso % (Auto) 0.6 % (0.0-1.8) 10/31/19 02:20 Lymph # 2.1 K/mm3 (1.2-5.4) 10/31/19 02:20 [place] # 0.4 K/mm3 (0.0-0.8) 10/31/19 02:20 Eos # 0.1 K/mm3 (0.0-0.4) 10/31/19 02:20 Baso # 0.0 K/mm3 (0.0-0.1) 10/31/19 02:20 Seg Neutrophils % 53.6 % (40.0-70.0) 10/31/19 02:20 Seg Neutrophils # 3.1 K/mm3 (1.8-7.7) 10/31/19 02:20 PT 13.7 Sec. (12.2-14.9) 10/31/19 02:20 INR 1.04 (0.87-1.13) 10/31/19 02:20 APTT 26.4 Sec. (24.2-36.6) 10/31/19 02:20 Thrombin Time 15.0 Sec. (15.1-19.6) L 10/31/19 02:20 Sodium 137 mmol/L (137-145) 10/31/19 02:20 Potassium 3.5 mmol/L (3.6-5.0) L 10/31/19 02:20 Chloride 97.7 mmol/L (98-107) L 10/31/19 02:20 Carbon Dioxide 25 mmol/L (22-30) 10/31/19 02:20 Anion Gap 18 mmol/L 10/31/19 02:20 BUN 13 mg/dL (7-17) 10/31/19 02:20 Creatinine 0.7 mg/dL (0.7-1.2) 10/31/19 02:20 Estimated GFR > 60 ml/min 10/31/19 02:20 BUN/Creatinine Ratio 19 % 10/31/19 02:20 Glucose 111 mg/dL (65-100) H 10/31/19 02:20 POC Glucose 102 (70-105) 10/31/19 01:59 Calcium 9.2 mg/dL (8.4-10.2) 10/31/19 02:20 Troponin T < 0.010 ng/mL (0.00-0.029) 10/31/19 02:20 Triglycerides 54 mg/dL (2-149) 11/01/19 07:26 Cholesterol 157 mg/dL (50-199) 11/01/19 07:26 LDL Cholesterol Direct 91 mg/dL (50-130) 11/01/19 07:26 HDL Cholesterol 73 mg/dL (40-59) H 11/01/19 07:26 Cholesterol/HDL Ratio 2.15 % 11/01/19 07:26 Urine Opiates Screen Presumptive positive 10/31/19 Unknown Urine Methadone Screen Presumptive negative 10/31/19 Unknown Ur Barbiturates Screen Presumptive negative 10/31/19 Unknown Ur Phencyclidine Scrn Presumptive negative 10/31/19 Unknown Ur Amphetamines Screen Presumptive negative 10/31/19 Unknown U Benzodiazepines Scrn Presumptive negative 10/31/19 Unknown Urine Cocaine Screen Presumptive negative 10/31/19 Unknown U Marijuana (THC) Screen Presumptive negative 10/31/19 Unknown Drugs of Abuse Note Disclamer 10/31/19 Unknown Active Medications - Current Medications Current Medications: Generic Name Dose Route Start Last Admin Trade Name Freq PRN Reason Stop Dose Admin Acetaminophen 650 mg 10/31/19 07:39 Tylenol PO Q4H PRN Pain, Mild (1-3) Amlodipine Besylate 5 mg 11/03/19 11:00 11/03/19 10:58 Amlodipine PO 5 mg QDAY [facility] Administration Aspirin 325 mg 11/01/19 10:00 11/03/19 10:57 Aspirin PO 325 mg QDAY [facility] Administration Atorvastatin Calcium 40 mg 10/31/19 22:00 11/02/19 23:04 Lipitor PO 40 mg QHS [facility] Administration Bisacodyl 10 mg 10/31/19 10:00 11/01/19 22:56 Dulcolax [place] 10 mg QDAY PRN Administration Constipation Bupropion HCl 450 mg 11/04/19 10:00 Wellbutrin Xl PO QDAY [facility] Carvedilol 12.5 mg 11/03/19 11:00 11/03/19 10:58 Coreg PO 12.5 mg BID [facility] Administration Diphenhydramine HCl 25 mg 11/03/19 12:19 11/03/19 12:31 Benadryl IV 25 mg Q6H PRN Administration Itching Docusate Sodium 100 mg 11/02/19 22:00 11/03/19 10:58 Colace PO 100 mg BID [facility] Administration Famotidine 20 mg 11/03/19 14:00 Pepcid IV QDAY [facility] Hydralazine HCl 10 mg 11/03/19 14:37 Apresoline IV Q4HR PRN Blood Pressure Hydromorphone HCl 0.5 mg 11/02/19 17:58 11/02/19 23:05 Dilaudid IV 0.5 mg Q3H PRN Administration Pain , Severe (7-10) Labetalol HCl 10 mg 11/03/19 14:37 Labetalol IV Q4H PRN Blood Pressure Nicotine 21 mg 10/31/19 14:00 11/03/19 10:57 Habitrol TD 21 mg QDAY [facility] Administration Ondansetron HCl 4 mg 11/02/19 17:58 Zofran IV Q8H PRN Nausea And Vomiting Oxycodone/Acetaminophen 2 tab 11/02/19 17:58 11/03/19 09:07 Percocet 5/325 PO 2 tab Q4H PRN Administration Pain, Moderate (4-6) Pantoprazole Sodium 40 mg 11/03/19 11:00 11/03/19 10:58 Protonix PO 40 mg QDAY [facility] Administration Sodium Chloride 10 ml 10/31/19 07:39 11/01/19 22:56 Sodium Chloride Flush Syringe 10 Ml IV 10 ml PRN PRN Administration LINE FLUSH Triamterene/HCTZ 2 each 11/03/19 11:00 11/03/19 13:13 Maxzide-25 PO 2 each QAM [facility] Administration Venlafaxine HCl 150 mg 11/03/19 11:00 11/03/19 13:14 Effexor Xr PO 150 mg QDAY [facility] Administration Nutrition/Malnutrition Assess - Dietary Evaluation Nutrition/Malnutrition Findings: Nutrition Notes Start: 10/31/19 10:21 Freq: Status: Active Protocol: Document 11/02/19 15:38 BERTA (Rec: 11/02/19 15:41 BERTA [email or web address]) Nutrition Notes Initial or Follow up Brief Note Current Diet NPO (for procedure) Subjective/Other Information Pt not in room at time of visit (11:22). Diet was advanced to Cardiac on 10/31/19. Nutrition Intervention Follow-Up By: 11/06/19 Additional Comments F/U: diet advancement, intakes , diet education needs
--- NOTE | 2019-11-03 21:31 | Cat Scan Report ---
CT head/brain wo con INDICATION: cva s/p tPA. TECHNIQUE: All CT scans at this location are performed using the following dose modulation technique: Automated exposure control. CONTRAST: CT brain 10/31/2019. COMPARISON: None available. FINDINGS: The ventricular system is appropriate in size and configuration without midline shift. Nega tive for mass, stroke or hemorrhage. Imaged portions of the paranasal sinuses are clear. IMPRESSION: Negative CT brain without contrast. Signer Name: Larry Sewell MD Signed: 11/03/2019 9:27 PM Workstation Name: [id number]
[2019-11-03] MEDS: FAMOTIDINE 20 MG/2 ML INJ IV SCH (22:02)
[2019-11-04] MEDS: diphenhydrAMINE 50 MG/ML VIAL IV PRN (00:56)
[2019-11-04] MEDS: oxyCODONE /ACETAMINOPHEN 5-325MG TAB PO PRN (05:09)
[2019-11-04 06:25] LABS: Hematocrit 36.4 % (30.3-42.9); Hemoglobin 12.3 gm/dl (10.1-14.3); Mean Corpuscular HGB Conc 34 % (30-34); Mean Corpuscular Volume 105 fl (79-97); Platelet Count 164 K/mm3 (140-440); Red Blood Count 3.46 M/mm3 (3.65-5.03); Red Cell Distribution Width 15.7 % (13.2-15.2)
[2019-11-04 06:55] LABS: BUN/Creatinine Ratio 22; Blood Urea Nitrogen 11 mg/dL (7-17); Calcium 9.6 mg/dL (8.4-10.2); Hemolysis Index 35
[2019-11-04] MEDS: VENLAFAXINE XR 75 MG CAP PO SCH (09:38)
[2019-11-04] MEDS: FAMOTIDINE 20 MG/2 ML INJ IV SCH (09:39)
[2019-11-04] MEDS: DOCUSATE SODIUM 100 MG CAP PO SCH (09:39)
[2019-11-04] MEDS: amLODIPine 5 MG TAB PO SCH (09:39)
[2019-11-04] MEDS: ASPIRIN 325 MG TAB PO SCH (09:39)
[2019-11-04] MEDS: carvediloL 12.5 MG TAB PO SCH (09:39)
[2019-11-04] MEDS: PANTOPRAZOLE 40 MG TAB PO SCH (09:40)
[2019-11-04] MEDS: TRIAMTER/HCTZ 37.5-25 MG TAB PO SCH (09:40)
[2019-11-04] MEDS: NICOTINE 21 MG/24 HR PATCH TD SCH (09:40)
[2019-11-04 09:41] VITALS: BP 149/51
[2019-11-04] MEDS ORDERED: buPROPion XL 150 MG TAB PO SCH (10:00)
--- NOTE | 2019-11-04 13:49 | Discharge Summary ---
Providers - Providers Date of Admission: 11/01/19 03:12 Date of discharge: 11/04/19 Attending physician: TERELL SINGH 10/31/19 07:38 Consult to Physician [CONS] Routine Comment: Consulting Provider: MICKEY TORRES Physician Instructions: Reason For Exam: CVA s/p tPA 10/31/19 07:40 Consult to Case Management [CONS] Routine Services Needed at Discharge: Physical Therapy Occupational Therapy Notified:: PERSONAL SECRETARY Consult to Dietitian/Nutrition [CONS] Routine Physician Instructions: Reason For Exam: Reason for Consult: Nutrition Recommendations Reason for Consult: Diet education Occupational Therapy Evaluate and Treat [CONS] Routine Comment: Reason For Exam: Neuro deficits Physical Therapy Evaluation and Treat [CONS] Routine Comment: Reason For Exam: Neuro deficits 10/31/19 07:41 Speech Therapy Evaluation and Treat [CONS] Routine Reason For Exam: swallow eval 10/31/19 13:37 Consult to Physician [CONS] Routine Comment: Consulting Provider: WENDI LATHAM Physician Instructions: Reason For Exam: Carotid stenosis 11/01/19 11:10 Consult to Physician [CONS] Routine Comment: Consulting Provider: CELIA RENTERIA Physician Instructions: Reason For Exam: Pre-operative Cardiac Stratification 11/03/19 07:11 Consult to Physician [CONS] Routine Comment: Consulting Provider: FRANKI PERALTA Physician Instructions: Reason For Exam: critical care Primary care physician: PROCUREMENT OFFICER Hospitalization Condition: Stable Hospital course: Patient is a 59 yo woman with a history of hypertension, hepatitis C with liver disease, tobacco dependency, depression with a suicidal attempt by intentionally drinking Ammonia, alcohol abuse, prior UDS positive for amphetamines, benzos and opiates who presents to [facility] ED with left sided weakness and progressive worsen constant dysarthria without any aggravating or relieving factors. She went to [employer] service around 11pm then she developed difficulty ambulating and required assistance from her spouse to get to the car. Her NIH score was 5. She was given tPA in ED. Currently, her speech is getting better but still difficult to understand and still slightly confused and drowsy. * CT head without contrast no acute findings * CTA head and neck IMPRESSION: 1. No acute intracranial abnormality. 2. No intracranial large vessel occlusion identified. 3. Approximately 50% stenosis of the bilateral intracranial internal carotid arteries in the cavernous ICA segments. 4. Bilateral flow-limiting stenoses of the carotid bulbs and proximal cervical internal carotid arteries due to calcified plaque, greater on the right. Discharge Diagnoses: Acute Ischemic Stroke s/p TPA: stroke protocal used, admit to ICU consulted CCM, MRI unable to be completed with 1 mg iv Ativan, s/p tPA received: protocol used, consulted Neurology, input noted s/p Right CEA 11/02/18: Vascular surgery is following Acute metabolic encephalopathy due to stroke Tobacco dependency: executive assistant to general counsel on stopping, offered and accepted nicotine patch Macrocytosis without anemia and thrombocytopenia due to chronic liver disease/Etoh related/hep C related: monitor cbc closely Hypokalemia: replete and monitor closley DVT ppx: scd only, no a/c x 24 hours post tPA Disposition: DC-01 TO HOME OR SELFCARE Time spent for discharge: 34 minutes Core Measure Documentation - Palliative Care Palliative Care/ Comfort Measures: Not Applicable - Core Measures Any of the following diagnoses?: stroke - VTE Discharge Requirements Deep Vein Thrombosis/Pulmonary Embolism Present on Admission: No Has pt received <5 days of overlap therapy or INR<2.0: No Anticoagulant overlap therapy prescribed at discharge: No Contraindication No Overlap Therapy order at DC: Not Indicated - Stroke Discharge Requirements Statin for LDL = or >70 mg/dl on DC: Yes Anticoag for atrial fib/atrial flutter: Not Applicable Reason for no anticoag for AF/F on DC: Not Indicated Antithrombotic for ischemic stroke: Yes Exam - Physical Exam Narrative exam: Gen: WDWN, NAD, lethargic, Orientated x 3 HEENT: NCAT, EOMI, PERRL, OP Clear Neck: supple, no adenopathy, no thyromegaly, no JVD CVS/Heart: RRR, normal S1S2, pulses present bilaterally Chest/Lungs: CTA B, Symmetrical chest expansion, good air entry bilaterally GI/Abdomen: soft, NTND, good bowel sounds, no guarding or rebound /Bladder: no suprapubic tenderness, no CVA or paraspinal tenderness Extermity/Skin: no c/c/e, no obvious rash MSK: FROM x 4, mild 4/5 LUE strength Neuro: CN 2-12 grossly intact except speech and facial, no drift Psych: calm - Constitutional Vitals: Temp Pulse Resp BP Pulse Ox 98.0 F 80 18 149/51 97 11/04/19 04:24 11/04/19 09:39 11/04/19 08:35 11/04/19 09:39 11/04/19 04:24 Plan Activity: other (no strenous activity unless cleared by PCP) Diet: low salt Follow up with: SERGEY WAHL MD [Staff Physician] - 7 Days WENDI LATHAM MD [Staff Physician] - 10 Days Prescriptions: AtorvaSTATin [Lipitor] 40 mg PO QHS #30 tablet Quetiapine Fumarate [SEROquel] 2 tab PO QHS #60 Trazodone HCl [traZODone] 300 mg PO QHS #30 tab amLODIPine 5 mg PO QDAY #30 tablet amLODIPine 5 mg PO QDAY #30 tablet Aspirin 325 mg PO QDAY #30 tablet carvediloL [Coreg] 12.5 mg PO BID #60 tablet Venlafaxine Xr [Effexor XR] 2 tab PO QDAY #60 capsule Nicotine [Habitrol] 21 mg TD QDAY #30 patch oxyCODONE /ACETAMINOPHEN [Percocet 5/325 mg] 1 tab PO Q6H PRN #20 tablet PRN Reason: Pain , Severe (7-10) buPROPion XL [Wellbutrin XL] 3 tab PO QDAY #90 tablet
== END 2019-11-04 15:44 | disposition home or self-care (01) | DRG 37 ==
LOC: ED 01:43 → UNDOADMIN 07:37 → CC1 07:37 → 4A 11-01 03:12 → CC1 11-02 19:27 → 4A 11-03 21:50
PROVIDERS: ADMIT Internal Medicine; ATTEND Internal Medicine
PROC: 3E0234Z Introduction of Serum, Toxoid and Vaccine into Muscle, Percutaneous Approach (ICD-10-PCS; principal; 2019-11-01)
PROC: 3E04317 Introduction of Other Thrombolytic into Central Vein, Percutaneous Approach (ICD-10-PCS; 2019-11-01)
PROC: 03CH0ZZ Extirpation of Matter from Right Common Carotid Artery, Open Approach (ICD-10-PCS; 2019-11-02)
PROC: 03CM0ZZ Extirpation of Matter from Right External Carotid Artery, Open Approach (ICD-10-PCS; 2019-11-02)
PROC: 03CK0ZZ Extirpation of Matter from Right Internal Carotid Artery, Open Approach (ICD-10-PCS; 2019-11-02)
PROC: 03UH0KZ Supplement Right Common Carotid Artery with Nonautologous Tissue Substitute, Open Approach (ICD-10-PCS; 2019-11-02)
PROC: 03UK0KZ Supplement Right Internal Carotid Artery with Nonautologous Tissue Substitute, Open Approach (ICD-10-PCS; 2019-11-02)
PROC: 03UM0KZ Supplement Right External Carotid Artery with Nonautologous Tissue Substitute, Open Approach (ICD-10-PCS; 2019-11-02)
DX: I63.231 Cerebral infarction due to unspecified occlusion or stenosis of right carotid arteries (principal); G93.41 Metabolic encephalopathy; F32.9 Major depressive disorder, single episode, unspecified; I10 Essential (primary) hypertension; B19.20 Unspecified viral hepatitis C without hepatic coma; Z90.710 Acquired absence of both cervix and uterus; F17.200 Nicotine dependence, unspecified, uncomplicated; E87.6 Hypokalemia; Z23 Encounter for immunization
CPT/HCPCS: 36415; 36620; 70450; 70496; 70498; 80048; 80061; 80307; 82962; 84484; 85025; 85027; 85347; 85610; 85670; 85730; 90732; 93005; 93010; 93306; 93880; 93970; 94760; 95819; 96374; 99406; G0378; A4649; A9270-GY; C1768; J0690; J1170; J1200; J1644; J2060; J2250; J2370; J2405; J2704; J2720; J2997; J3010; J7030; J7040; J7120; Q9967

== ENCOUNTER 2019-12-27 15:24 | Emergency (ER) | payer MEDICARE ==
[2019-12-27 15:37] VITALS: BP 175/91
--- NOTE | 2019-12-27 15:39 | Event Note ---
ED Screening Note Date of service: 12/27/19 Time: 15:35 ED Screening Note: 59 y o female present to Ed cc of vomitting x 3 days py was sent here from her pcp. states no t able to hold food in x 2 dya cc of 2/10 mild abd pain denies fever, diarhea PMH: HTN no active vomitting This initial assessment/diagnostic orders/clinical plan/treatment(s) is/are subject to change based on patients health status, clinical progression and re- assessment by fellow clinical providers in the ED. Further treatment and workup at subsequent clinical providers discretion. Patient/guardian urged not to elope from the ED as their condition may be serious if not clinically assessed and managed. Initial orders include: labs, ua
[2019-12-27 16:10] LABS: Basophils # (Auto) 0.1 K/mm3 (0.0-0.1); Basophils % (Auto) 0.7 % (0.0-1.8); Eosinophils % (Auto) 0.3 % (0.0-4.3); Hematocrit 51.7 % (30.3-42.9); Hemoglobin 17.7 gm/dl (10.1-14.3); Lymphocytes # (Auto) 1.6 K/mm3 (1.2-5.4); Lymphocytes % (Auto) 23.1 % (13.4-35.0); Mean Corpuscular HGB Conc 34 % (30-34); Mean Corpuscular Volume 98 fl (79-97); Monocytes # (Auto) 0.7 K/mm3 (0.0-0.8); Monocytes % (Auto) 10.4 % (0.0-7.3); Platelet Count 197 K/mm3 (140-440); Red Cell Distribution Width 14.7 % (13.2-15.2)
--- NOTE | 2019-12-27 16:21 | Emergency Department Report ---
ED Abdominal Pain HPI - General Chief Complaint: Nausea/Vomiting/Diarrhea Stated Complaint: BP HIGH, VOMITTING Time Seen by Provider: 12/27/19 15:46 Source: patient Mode of arrival: Ambulatory Limitations: No Limitations - History of Present Illness Initial Comments: 59 YO FEMALE COMES TO ER FROM PCP WITH ABD PAIN N/V AND INC BP BP NORMAL ON ADMIT TO ER NO ABD PAIN OR N/V ON EXAM NO FEVER OR CHILLS NO BACK PAIN NO CP OR SOB MED REC NOTED MD Complaint: abdominal pain -: Gradual, days(s) Associated Symptoms: nausea, vomiting. denies: diarrhea, chills, constipation, dysuria, hematemesis, hematochezia, melena, hematuria, anorexia, syncope - Related Data LMP (females 10-50): unknown Previous Rx's Medication Instructions Recorded Last Taken Type Pantoprazole [Protonix TAB] 40 mg PO QDAY #30 tablet 11/21/14 10/30/19 Rx Triamter/Hctz 75-50 mg (Nf) 1 tab PO QDAY #30 tablet 02/28/16 10/30/19 Rx [Maxzide 75-50 mg] Aspirin 325 mg PO QDAY #30 tablet 11/04/19 Unknown Rx AtorvaSTATin [Lipitor] 40 mg PO QHS #30 tablet 11/04/19 Unknown Rx Quetiapine Fumarate [SEROquel] 2 tab PO QHS #60 11/04/19 Unknown Rx Trazodone HCl [traZODone] 300 mg PO QHS #30 tab 11/04/19 Unknown Rx Venlafaxine Xr [Effexor XR] 2 tab PO QDAY #60 capsule 11/04/19 Unknown Rx amLODIPine 5 mg PO QDAY #30 tablet 11/04/19 Unknown Rx buPROPion XL [Wellbutrin XL] 3 tab PO QDAY #90 tablet 11/04/19 Unknown Rx Ondansetron [Zofran Odt] 4 mg PO Q8HR PRN #10 tab.rapdis 12/27/19 Unknown Rx Allergies Allergy/AdvReac Type Severity Reaction Status Date / Time lisinopril Allergy Angioedema Verified 12/27/19 15:26 ED Review of Systems ROS: Stated complaint: BP HIGH, VOMITTING Other details as noted in HPI Comment: All other systems reviewed and negative ED Past Medical Hx - Past Medical History Hx Hypertension: Yes Hx CVA: Yes (TIA) Hx Heart Attack/AMI: No Hx Congestive Heart Failure: No Hx Diabetes: No Hx Deep Vein Thrombosis: No Hx Pulmonary Embolism: No Hx GERD: Yes Hx Liver Disease: Yes (hepatitis C) Hx Renal Disease: No Hx of Cancer: No Hx Sickle Cell Disease: No Hx Arthritis: No Hx Headaches / Migraines: No Hx Seizures: No Hx Kidney Stones: No Hx Psychiatric Treatment: Yes (depression) Hx Asthma: No Hx COPD: No Hx Tuberculosis: No Hx Dementia: No Hx HIV: No - Surgical History Past Surgical History?: Yes Additional Surgical History: hysterectomy--CEA - Family History Family history: no significant - Social History Smoking Status: Former Smoker Substance Use Type: None - Medications Home Medications: Home Medications Medication Instructions Recorded Confirmed Last Taken Type Pantoprazole [Protonix TAB] 40 mg PO QDAY #30 tablet 11/21/14 11/03/19 10/30/19 Rx Triamter/Hctz 75-50 mg (Nf) 1 tab PO QDAY #30 tablet 02/28/16 11/03/19 10/30/19 Rx [Maxzide 75-50 mg] Aspirin 325 mg PO QDAY #30 tablet 11/04/19 Unknown Rx AtorvaSTATin [Lipitor] 40 mg PO QHS #30 tablet 11/04/19 Unknown Rx Quetiapine Fumarate [SEROquel] 2 tab PO QHS #60 11/04/19 Unknown Rx Trazodone HCl [traZODone] 300 mg PO QHS #30 tab 11/04/19 Unknown Rx Venlafaxine Xr [Effexor XR] 2 tab PO QDAY #60 capsule 11/04/19 Unknown Rx amLODIPine 5 mg PO QDAY #30 tablet 11/04/19 Unknown Rx buPROPion XL [Wellbutrin XL] 3 tab PO QDAY #90 tablet 11/04/19 Unknown Rx Ondansetron [Zofran Odt] 4 mg PO Q8HR PRN #10 tab.rapdis 12/27/19 Unknown Rx ED Physical Exam - General Limitations: No Limitations General appearance: alert, in no apparent distress - Head Head exam: Present: atraumatic, normocephalic - Eye Eye exam: Present: normal appearance - ENT ENT exam: Present: mucous membranes moist - Neck Neck exam: Present: normal inspection - Respiratory Respiratory exam: Present: normal lung sounds bilaterally. Absent: respiratory distress - Cardiovascular Cardiovascular Exam: Present: regular rate, normal rhythm. Absent: systolic murmur, diastolic murmur, rubs, gallop - GI/Abdominal GI/Abdominal exam: Present: soft, normal bowel sounds - Extremities Exam Extremities exam: Present: normal inspection - Back Exam Back exam: Present: normal inspection - Neurological Exam Neurological exam: Present: alert, oriented X3 - Psychiatric Psychiatric exam: Present: normal affect, normal mood - Skin Skin exam: Present: warm, dry, intact, normal color. Absent: rash ED Course Vital Signs 12/27/19 12/27/19 15:31 15:37 Temperature 97.7 F Respiratory 20 Rate Blood Pressure 175/91 O2 Sat by Pulse 99 Oximetry ED Medical Decision Making - Lab Data Result diagrams: 12/27/19 15:57 12/27/19 15:57 - Radiology Data Radiology results: report reviewed, image reviewed - Medical Decision Making Vital Signs 12/27/19 12/27/19 15:31 15:37 Temperature 97.7 F Respiratory 20 Rate Blood Pressure 175/91 O2 Sat by Pulse 99 Oximetry Vital Signs 12/27/19 12/27/19 15:31 15:37 Temperature 97.7 F Respiratory 20 Rate Blood Pressure 175/91 O2 Sat by Pulse 99 Oximetry Labs 12/27/19 12/27/19 12/27/19 15:57 15:57 Unknown WBC 6.8 RBC 5.30 H Hgb 17.7 H Hct 51.7 H MCV 98 H MCH 34 H MCHC 34 RDW 14.7 Plt Count 197 Lymph % (Auto) 23.1 Avery % (Auto) 10.4 H Eos % (Auto) 0.3 Baso % (Auto) 0.7 Lymph # 1.6 Avery # 0.7 Eos # 0.0 Baso # 0.1 Seg Neutrophils % 65.5 Seg Neutrophils # 4.5 Sodium 130 L Potassium 4.0 Chloride 88.1 L Carbon Dioxide 18 L Anion Gap 28 BUN 22 H Creatinine 1.2 Estimated GFR 55 BUN/Creatinine Ratio 18 Glucose 119 H Calcium 9.4 Total Bilirubin 1.30 H AST 1489 H ALT 829 H Alkaline Phosphatase 118 Total Protein 8.1 Albumin 4.6 Albumin/Globulin Ratio 1.3 Lipase 10 L Urine Color Yellow Urine Turbidity Cloudy Urine pH 6.0 Ur Specific [place] 1.014 Urine Protein <15 mg/dl Urine Glucose (UA) Neg Urine Ketones Neg Urine Blood Sm Urine Nitrite Neg Urine Bilirubin Neg Urine Urobilinogen < 2.0 Ur Leukocyte Esterase Tr Urine WBC (Auto) 3.0 Urine RBC (Auto) 7.0 U Epithel Cells (Auto) 21.0 H Urine Bacteria (Auto) 1+ Urine Mucus Few LABS NOTED UA NOTED CT NOTED 1L NS/ ZOFRAN X 1 IN ER PT HAS HAD NO ABD PAIN, N/V/D IN ER HER BP WAS NORMAL AT TRIAGE NO CP NO SOB NO FEVER OR CHILLS PT INSTRUCTED TO STOP STATIN AND NOT USE TYLENOL/ALCOHOL SHE WAS EDUCATED ON LAB FINDINGS AND WILL SEE PCP IN AM COPY OF CT GIVEN TO HER ON DISC DC HOME WITH WITH PCP FOLLOW UP IN AM Critical care attestation.: If time is entered above; I have spent that time in minutes in the direct care of this critically ill patient, excluding procedure time. ED Disposition Clinical Impression: Abdominal pain Disposition: DC-01 TO HOME OR SELFCARE Is pt being admited?: No Does the pt Need Aspirin: No Condition: Stable Instructions: Acute Abdominal Pain (ED) Additional Instructions: FOLLOW UP WITH PCP IN AM LFT'S ARE HIGH CT IS NORMAL STOP YOUR STATIN FOR NOW AVOID ALCOHOL AVOID TYLENOL ZOFRAN FOR NAUSEA Prescriptions: Ondansetron [Zofran Odt] 4 mg PO Q8HR PRN #10 tab.rapdis PRN Reason: Vomiting Referrals: PRIMARY CARE, [Primary Care Provider] - 3-5 Days Time of Disposition: 18:36
[2019-12-27 16:33] LABS: Albumin 4.6 g/dL (3.9-5); Calcium 9.4 mg/dL (8.4-10.2)
[2019-12-27] MEDS ORDERED: SODIUM CHLORIDE 0.9% 1000 ML 1,000 ML IV ONE (16:34)
[2019-12-27] MEDS ORDERED: ONDANSETRON 4 MG/2 ML INJ IV ONE (16:34)
[2019-12-27 17:23] LABS: Bacteria,Urine 1+ /HPF (Negative); Bilirubin,Urine NEG (Negative); Blood,Urine SM (Negative); Color,Urine Yellow (Yellow); Mucus,Urine FEW /HPF; Protein,Urine <15 mg/dL mg/dL (Negative); Urobilinogen,Urine < 2.0 mg/dL (<2.0)
--- NOTE | 2019-12-27 18:36 | Cat Scan Report ---
CT of the abdomen and pelvis with contrast INDICATION: Abdominal pain COMPARISON: None FINDINGS: Lung bases are clear. There is slight fatty liver. No focal liver lesions are seen. The spl een, pancreas and adrenal glands are unremarkable. Right kidney is normal. Left renal low densities a re likely cysts. Gallbladder is distended without evidence of cholecystitis. No biliary tree dilation . No fluid or adenopathy in the upper abdomen. CT of the pelvis shows a normal appendix. There is moderate vascular calcification without aneurysm. Uterus has been removed. There is sigmoid diverticulosis without diverticulitis. No hernia or bowel o bstruction. No significant skeletal lesion. IMPRESSION: Negative study. Automated exposure control was utilized to diminish radiation dose. Signer Name: David Marte MD Signed: 12/27/2019 6:32 PM Workstation Name: [id number]
== END 2019-12-27 19:21 | disposition home or self-care (01) ==
LOC: ED 15:24
DX: R10.9 Unspecified abdominal pain (principal); R11.2 Nausea with vomiting, unspecified; Z86.73 Personal history of transient ischemic attack (TIA), and cerebral infarction without residual deficits; K21.9 Gastro-esophageal reflux disease without esophagitis; F32.9 Major depressive disorder, single episode, unspecified; Z90.710 Acquired absence of both cervix and uterus
CPT/HCPCS: 36415; 74177; 80053; 81001; 83690; 85025; 96361; 96374; 99284; J2405; J7030; Q9967

== ENCOUNTER 2020-08-22 12:38 | Outpatient (CLI) | payer MEDICARE | END 2020-08-22 12:39 | disposition home or self-care (01) | LOC: MAMMO 12:38 | PROVIDERS: ATTEND Nurse Practitioner Family | DX: Z12.31 Encounter for screening mammogram for malignant neoplasm of breast (principal) | CPT/HCPCS: 77067 ==

== ENCOUNTER 2020-10-09 08:03 | Outpatient (CLI) | payer MEDICARE ==
--- NOTE | 2020-10-09 13:05 | Vascular Lab Report ---
DUPLEX DOPPLER LOWER EXTREMITY ARTERIAL, BILATERAL INDICATION / CLINICAL INFORMATION: OCCLUSION AND STENOSIS OF BILATERAL ARTERIES. TECHNIQUE: Arterial duplex examination of both lower extremities performed using B-mode, color flow and spectral Doppler assessment. COMPARISON: None. FINDINGS: RIGHT: - Atherosclerotic Plaque & Vessel: Moderate diffuse atherosclerotic plaque is noted throughout. - Elevated Velocity (>200 cm/s) & Vessel: None. - Abnormal Waveform & Vessel: Monophasic waveforms are seen in the mid to distal official femoral art son, posterior and anterior tibial arteries, and dorsalis pedis. LEFT: - Atherosclerotic Plaque & Vessel: Diffuse atherosclerotic plaque is noted. - Elevated Velocity (>200 cm/s) & Vessel: None. - Abnormal Waveform & Vessel: Monophasic waveform is seen throughout the left lower extremity from th e distal superficial femoral artery to the dorsalis pedis. ADDITIONAL FINDINGS: None. ABIs were not calculated. IMPRESSION: 1. Diffuse atherosclerotic plaque with monophasic waveforms bilaterally, as above. Given this, CT or conventional angiogram should be considered to better characterize for significant stenosis. Doppler Waveform: - Triphasic is normal. - Biphasic is abnormal if clear transition from triphasic signal along vascular tree. - Monophasic is abnormal. Signer Name: Compa Rivera MD Signed: 10/09/2020 1:00 PM Workstation Name: [id number]
--- NOTE | 2020-10-09 13:07 | Vascular Lab Report ---
"DUPLEX DOPPLER ULTRASOUND CAROTID, BILATERAL INDICATION: OCCLUSION AND STENOSISI OF BILATERAL. COMPARISON: Ultrasound 11/01/2019 FINDINGS: RIGHT CAROTID: There is mild plaque in the mid to distal common carotid. CCA velocity: 94 cm/sec. ICA peak systolic velocity: 120 cm/sec. ICA/CCA PSV Ratio: 1.3. Right Vertebral Artery: Antegrade flow. LEFT CAROTID: Mild intimal thickening in the distal common carotid. CCA velocity: 72 cm/sec. ICA peak systolic velocity: 131 cm/sec. ICA/CCA PSV Ratio: 1.8. Left Vertebral Artery: Antegrade flow. IMPRESSION: 1. Right Internal Carotid Artery: Less than 50% diameter stenosis. 2. Left Internal Carotid Artery: 50-69% diameter stenosis. Velocity criteria are extrapolated from diameter data as defined by the Society of Radiologists in Ul trasound Consensus Conference, Radiology 2003; 229;340-346. Degree of || ICA PSV || Plaque || ICA/CCA Stenosis (%) || (cm/sec) || estimate (%) || PSV Ratio - Normal...............<125..............None.................<2.0 - <50....................<125..............<50....................<2.0 - 50-69................125-230.........>50....................2.0-4.0 - >70 but <100....>230..............>50....................>4.0 - Near...................High, low, .....visible................variable occlusion or none - Total...................None.............visible;................N/A occlusion no lumen Signer Name: Compa Rivera MD Signed: 10/09/2020 1:02 PM Workstation Name: [id number]"
== END 2020-10-09 08:04 | disposition home or self-care (01) ==
LOC: VAS 08:03
PROVIDERS: ATTEND Surgery Vascular Surgery
DX: I65.23 Occlusion and stenosis of bilateral carotid arteries (principal); I70.223 Atherosclerosis of native arteries of extremities with rest pain, bilateral legs
CPT/HCPCS: 93880; 93925

== ENCOUNTER 2020-11-25 15:10 | Emergency (ER) | payer MEDICARE ==
[2020-11-25 15:35] VITALS: BP 155/71
--- NOTE | 2020-11-25 15:53 | Emergency Department Report ---
Chief Complaint: Back Pain/Injury Stated Complaint: BACK PAIN Time Seen by Provider: 11/25/20 15:40 - HPI History of Present Illness: A/C BACK PAIN FOR YEARS WORSE TODAY NO FALL NO DYSURIA NO CVA TENDERNESS NO FEVER THIS IS A NOT ACUTE PAIN SINCE HER IS HERE SHE THOUGHT SHED BE SEEN - ROS Review of Systems: LOW BACK PAIN NEG STRAIGHT LEG RAISE - Exam Vital Signs: Vital Signs 11/25/20 15:34 Temperature 98.5 F Pulse Rate 77 Respiratory 18 Rate Blood Pressure 155/71 O2 Sat by Pulse 92 Oximetry Physical Exam: A/O X 4 MAEW BP WORSE WITH MOVEMENT S1S2 LUNGS CTA ABD SNT CVA TENDERNESS NONE MSE screening note: Focused history and physical exam performed. Due to findings the following was ordered: Patient discussed with doctor:: YANIV CARRILLO ED Disposition for MSE Clinical Impression: Chronic back pain Disposition: MED SCREENING EXAM-LEFT Condition: Stable Instructions: Chronic Pain, Adult Referrals: SERGEY WAHL MD [Staff Physician] - 3-5 Days Time of Disposition: 15:50
== END 2020-11-25 15:53 | disposition left against medical advice (07) ==
LOC: ED 15:10
DX: M54.5 Low back pain (principal); Z53.21 Procedure and treatment not carried out due to patient leaving prior to being seen by health care provider

== ENCOUNTER 2021-05-16 06:57 | Emergency (ER) | payer MEDICARE ==
[2021-05-16] MEDS ORDERED: SODIUM CHLORIDE 0.9% 1000 ML 1,000 ML IV ONE ×2 (07:32→09:55)
--- NOTE | 2021-05-16 07:32 | Emergency Department Report ---
- General Chief complaint: Neuro Symptoms/Deficit Stated complaint: POSS STROKE Time Seen by Provider: 05/16/21 07:22 Source: patient, family Mode of arrival: Wheelchair Limitations: Physical Limitation - History of Present Illness Initial comments: CC:" I was just feeling bad. I had difficulty walking. I feel better now. HPI: THis is a 60 yo female with hx of CVA, HTN, hepatitis C, tobacco dependency, alcohol dependence, depression who presents with weakness in her legs. She had difficulty walking yesterday due to generalized weakness. She denies focal paralysis. Patient appeared drowsy according to at the bedside. Patient has reminds ensure that she did not have a stroke. Symptoms began yesterday afternoon. She denies headache, fever, chest pain, abdominal pain. She did have diarrhea on yesterday. She denies bloody stool. She states that she has had hypotension off and on recently. MD Complaint: generalized weakness, lack of energy, difficulty walking -: Gradual, days(s) (Yesterday afternoon) Location: generalized Severity: moderate Consistency: now resolved Improves with: rest Worsens with: none Associated Symptoms: other (Diarrhea) - Related Data Home Medications Medication Instructions Recorded Confirmed Last Taken Albuterol Sulfate [Proventil Hfa] 2 puff IH Q4H PRN 01/18/20 01/18/20 Unknown AtorvaSTATin [Lipitor] 20 mg PO QHS 01/18/20 01/21/20 01/20/20 21:00 Dicyclomine [Bentyl] 20 mg PO DAILY 01/18/20 01/21/20 01/20/20 09:00 Potassium Chloride [K-Dur] 20 meq PO QDAY 01/18/20 01/21/20 01/20/20 09:00 buPROPion XL [Wellbutrin XL] 300 mg PO QDAY 01/18/20 01/21/20 01/20/20 09:00 raNITIdine HCl [Zantac] 150 mg PO BID 01/18/20 01/21/20 01/20/20 18:00 Previous Rx's Medication Instructions Recorded Last Taken Type Pantoprazole [Protonix TAB] 40 mg PO QDAY #30 tablet 11/21/14 01/20/20 09:00 Rx Triamter/Hctz 75-50 mg (Nf) 1 tab PO QDAY #30 tablet 02/28/16 01/20/20 09:00 Rx [Maxzide 75-50 mg] Quetiapine Fumarate [SEROquel] 2 tab PO QHS #60 11/04/19 01/20/20 21:00 Rx Trazodone HCl [traZODone] 300 mg PO QHS #30 tab 11/04/19 01/20/20 21:00 Rx Venlafaxine Xr [Effexor XR] 2 tab PO QDAY #60 capsule 11/04/19 01/20/20 09:00 Rx amLODIPine 5 mg PO QDAY #30 tablet 11/04/19 01/21/20 04:35 Rx AtorvaSTATin [Lipitor] 20 mg PO QHS tablet 01/23/20 Unknown Rx Clopidogrel [Plavix] 75 mg PO QDAY #90 tablet 01/23/20 Unknown Rx Dicyclomine [Bentyl] 20 mg PO QID tablet 01/23/20 Unknown Rx HYDROcodone/APAP 7.5-325 [Purcell 1 each PO Q6HR PRN #40 tablet 01/23/20 Unknown Rx 7.5/325] amLODIPine 5 mg PO QDAY tablet 01/23/20 Unknown Rx buPROPion XL [Wellbutrin XL] 300 mg PO QDAY tablet 01/23/20 Unknown Rx carvediloL [Coreg] 12.5 mg PO BID tablet 01/23/20 Unknown Rx Allergies Allergy/AdvReac Type Severity Reaction Status Date / Time lisinopril Allergy Angioedema Verified 01/07/20 17:26 ED Review of Systems ROS: Stated complaint: POSS STROKE Other details as noted in HPI Comment: All other systems reviewed and negative Constitutional: malaise. denies: chills, fever Respiratory: denies: cough, shortness of breath Cardiovascular: denies: chest pain Gastrointestinal: diarrhea. denies: abdominal pain, nausea, vomiting Skin: denies: rash, lesions Neurological: denies: headache, weakness ED Past Medical Hx - Past Medical History Previous Medical History?: Yes Hx Hypertension: Yes Hx CVA: Yes (TIA) Hx Heart Attack/AMI: No Hx Congestive Heart Failure: No Hx Diabetes: No Hx Deep Vein Thrombosis: No Hx Pulmonary Embolism: No Hx GERD: Yes Hx Liver Disease: Yes (hepatitis C) Hx Renal Disease: No Hx Sickle Cell Disease: No Hx Arthritis: No Hx Headaches / Migraines: No Hx Seizures: No Hx Kidney Stones: No Hx Psychiatric Treatment: Yes (depression) Hx Asthma: No Hx COPD: No Hx Tuberculosis: No Hx Dementia: No Hx HIV: No - Surgical History Past Surgical History?: Yes Additional Surgical History: hysterectomy--CEA - Social History Smoking Status: Former Smoker Substance Use Type: Alcohol, Prescribed - Medications Home Medications: Home Medications Medication Instructions Recorded Confirmed Last Taken Type Pantoprazole [Protonix TAB] 40 mg PO QDAY #30 tablet 11/21/14 01/21/20 01/20/20 09:00 Rx Triamter/Hctz 75-50 mg (Nf) 1 tab PO QDAY #30 tablet 02/28/16 01/21/20 01/20/20 09:00 Rx [Maxzide 75-50 mg] Quetiapine Fumarate [SEROquel] 2 tab PO QHS #60 11/04/19 01/21/20 01/20/20 21:00 Rx Trazodone HCl [traZODone] 300 mg PO QHS #30 tab 11/04/19 01/21/20 01/20/20 21:00 Rx Venlafaxine Xr [Effexor XR] 2 tab PO QDAY #60 capsule 11/04/19 01/21/20 01/20/20 09:00 Rx amLODIPine 5 mg PO QDAY #30 tablet 11/04/19 01/21/20 01/21/20 04:35 Rx Albuterol Sulfate [Proventil Hfa] 2 puff IH Q4H PRN 01/18/20 01/18/20 Unknown History AtorvaSTATin [Lipitor] 20 mg PO QHS 01/18/20 01/21/20 01/20/20 21:00 History Dicyclomine [Bentyl] 20 mg PO DAILY 01/18/20 01/21/20 01/20/20 09:00 History Potassium Chloride [K-Dur] 20 meq PO QDAY 01/18/20 01/21/20 01/20/20 09:00 History buPROPion XL [Wellbutrin XL] 300 mg PO QDAY 01/18/20 01/21/20 01/20/20 09:00 History raNITIdine HCl [Zantac] 150 mg PO BID 01/18/20 01/21/20 01/20/20 18:00 History AtorvaSTATin [Lipitor] 20 mg PO QHS tablet 01/23/20 Unknown Rx Clopidogrel [Plavix] 75 mg PO QDAY #90 tablet 01/23/20 Unknown Rx Dicyclomine [Bentyl] 20 mg PO QID tablet 01/23/20 Unknown Rx HYDROcodone/APAP 7.5-325 [Purcell 1 each PO Q6HR PRN #40 tablet 01/23/20 Unknown Rx 7.5/325] amLODIPine 5 mg PO QDAY tablet 01/23/20 Unknown Rx buPROPion XL [Wellbutrin XL] 300 mg PO QDAY tablet 01/23/20 Unknown Rx carvediloL [Coreg] 12.5 mg PO BID tablet 01/23/20 Unknown Rx ED Physical Exam - General Limitations: No Limitations General appearance: alert, in no apparent distress - Head Head exam: Present: atraumatic, normocephalic - Eye Eye exam: Present: normal appearance - ENT ENT exam: Present: mucous membranes moist - Neck Neck exam: Present: normal inspection, full ROM - Respiratory Respiratory exam: Present: normal lung sounds bilaterally. Absent: respiratory distress, wheezes, rales, rhonchi - Cardiovascular Cardiovascular Exam: Present: regular rate, normal rhythm, normal heart sounds. Absent: systolic murmur, diastolic murmur, rubs, gallop - GI/Abdominal GI/Abdominal exam: Present: soft, normal bowel sounds. Absent: distended, tend erness, guarding, rebound - Extremities Exam Extremities exam: Present: normal inspection - Neurological Exam Neurological exam: Present: alert, oriented X3, CN II-XII intact, normal gait - Expanded Neurological Exam Expanded Patient oriented to: Present: person, place, time Speech: Present: fluid speech Cranial nerves: EOM's Intact: Normal Cerebellar function: Finger to Nose: Normal Sensory exam: Upper Extremity Light Touch: Normal Motor strength exam: RUE: 5, LUE: 5, RLE: 5, LLE: 5 Best Eye Response (Davey): (4) open spontaneously Best Motor Response (Davey): (6) obeys commands Best Verbal Response (Lynn): (5) oriented Davey Total: 15 - Psychiatric Psychiatric exam: Present: normal affect, normal mood - Skin Skin exam: Present: warm, dry, intact, normal color. Absent: rash - Assessment Assessment Interval: Baseline - Level of Consciousness 1a. Level of Consciousness: alert/keenly responsive - LOC Questions 1b. LOC Questions: answers both correctly - LOC Command 1c. LOC Commands: performs tasks correctly - Best Gaze 2. Best Gaze: normal - Visual 3. Visual: no visual loss - Facial Palsy 4. Facial Palsy: normal symmetrical movement - Motor Arm 5a. Motor Arm Left: no drift 5b. Motor Arm Right: no drift - Motor Leg 6a. Motor Leg Left: no drift 6b. Motor Leg Right: no drift - Limb Ataxia 7. Limb Ataxia: absent - Sensory 8. Sensory: normal - Best Language 9. Best Language: no aphasia - Dysarthria 10. Dysarthria: normal - Extinction and Inattention 11. Extinction/Inattention: no abnormality - Scoring Total Score: 0 Stroke Severity: No Stroke Symptoms ED Course Vital Signs 05/16/21 05/16/21 05/16/21 07:11 07:36 08:16 Temperature 98.1 F Pulse Rate 73 59 L Respiratory 18 16 Rate Blood Pressure 76/40 87/41 O2 Sat by Pulse 96 97 97 Oximetry 05/16/21 05/16/21 05/16/21 08:46 09:00 09:20 Temperature Pulse Rate 64 65 Respiratory 15 15 Rate Blood Pressure 138/47 149/53 138/47 O2 Sat by Pulse 97 98 99 Oximetry 05/16/21 09:46 Temperature Pulse Rate 68 Respiratory 15 Rate Blood Pressure 157/46 O2 Sat by Pulse 96 Oximetry ED Medical Decision Making - Lab Data Result diagrams: 05/16/21 Unknown 05/16/21 Unknown Temp Pulse Resp BP Pulse Ox 98.1 F 68 15 157/46 96 05/16/21 07:11 05/16/21 09:46 05/16/21 09:46 05/16/21 09:46 05/16/21 09:46 - EKG Data -: EKG Interpreted by Me EKG shows normal: sinus rhythm, axis, intervals, QRS complexes, ST-T waves Rate: normal - EKG Data Interpretation: normal EKG 05/16/21 08:09 EKG obtained 0804 EKG interpreted by me Normal sinus rhythm normal rate normal axis normal intervals no ST elevation no ST-T signs of ischemia normal EKG - Radiology Data Radiology results: report reviewed [facility] [address] [place] [address] Cat Scan Report Signed Patient: SHAHZAD SWAIN MR#: [id number] : 1960 Acct:[id number] Age/Sex: 60 / F ADM Date: 05/16/21 Loc: ED Attending Dr: Ordering Physician: Holly Hand MD Date of Service: 05/16/21 Procedure(s): CT abdomen pelvis wo con Accession Number(s): [id number] cc: Holly Hand MD CT ABDOMEN AND PELVIS WITHOUT CONTRAST INDICATION / CLINICAL INFORMATION: Pt complains of diarrhea, hypotension. TECHNIQUE: Axial CT images were obtained through the abdomen and pelvis without IV contrast. All CT scans at this location are performed using CT dose reduction for ALARA by means of automated exposure control. COMPARISON: 12/27/2019 FINDINGS: LOWER CHEST: No significant abnormality. LIVER: No significant abnormality. GALLBLADDER: No significant abnormality. BILE DUCTS: No significant abnormality. PANCREAS: No significant abnormality. SPLEEN: No significant abnormality. ADRENALS: No significant abnormality. RIGHT KIDNEY and URETER: No significant abnormality. LEFT KIDNEY and URETER: No significant abnormality. No change in the cystlike lesion within the upper pole the left kidney. STOMACH and SMALL BOWEL: No significant abnormality. COLON: No significant abnormality. Sigmoid diverticulosis APPENDIX: No significant abnormality. PERITONEUM: No free fluid. No free air. No fluid collection. LYMPH NODES: No significant adenopathy. AORTA and ARTERIES: Atherosclerotic disease.. IVC and VEINS: No significant abnormality. URINARY BLADDER: No significant abnormality. REPRODUCTIVE ORGANS: No significant abnormality. ADDITIONAL FINDINGS: None. SKELETAL SYSTEM: No significant abnormality. IMPRESSION: Sigmoid diverticulosis without diverticulitis Signer Name: Jones Chavez MD Signed: 05/16/2021 8:06 AM Workstation Name: [id number] Transcribed By: Dictated By: Jones Chavez MD Electronically Authenticated By: Jones Chavez MD Signed Date/Time: 05/16/21 08 DD/ 0803 TD/TT: [facility] [address] [place] [address] Cat Scan Report Signed Patient: SHAHZAD SWAIN MR#: [id number] : 1960 Acct:[id number] Age/Sex: 60 / F ADM Date: 05/16/21 Loc: ED Attending Dr: Ordering Physician: Holly Hand MD Date of Service: 05/16/21 Procedure(s): CT head/brain wo con Accession Number(s): [id number] cc: Holly Hand MD CT head without contrast INDICATION : Weakness headache TECHNIQUE: Axial imaging performed from the skull apex through the skull base without the use of contrast. All CT examinations performed at this facility utilize dose modulation, iterative reconstruction or weight-based dosing, when appropriate, to reduce radiation dose to as low as reasonably achievable. COMPARISON: None FINDINGS: No acute intracranial hemorrhage or parenchymal abnormality. Ventricles are normal in size and appear symmetric. Soft tissues including the orbits appear normal. No acute osseous abnormality. Sinuses and mastoid air cells are clear. IMPRESSION: No acute abnormality. Signer Name: Jones Chavez MD Signed: 05/16/2021 8:09 AM Workstation Name: [id number] Transcribed By: BC Dictated By: Jones Chavez MD Electronically Authenticated By: Jones Chavez MD Signed Date/Time: 05/16/21808 DD/ 5 TD/TT: - Medical Decision Making Generalized weakness, hypotension: I suspect her symptoms are due to polypharmacy. Patient takes several sedating medication as well as 3 different types of antihypertensive medications. I have asked her to stop taking Maxide. She will continue Coreg and amlodipine. Unclear why she is taking both of these medications. Sedating medications also include trazodone and Seroquel Purcell. I do not suspect CVA TIA. Chemistry kidney function confirmed my impression. Patient's generalized malaise due to hypotension volume contraction causing vasomotor nephropathy acute kidney injury patient received 2 L normal saline IV fluid. her blood pressure resolved. Her symptoms improved. I have urged her to stop taking the "water pill". She is taking a thiazide diuretic. CT head obtained to rule out intracranial hemorrhage or subacute CVA. CT abdomen pelvis obtained to rule out diverticulitis. Patient has history of colitis and GI bleed. Critical care attestation.: If time is entered above; I have spent that time in minutes in the direct care of this critically ill patient, excluding procedure time. ED Disposition Clinical Impression: Hypotension due to hypovolemia, Dehydration, Acute kidney injury, Polypharmacy Disposition: TO HOME OR SELFCARE Is pt being admited?: No Does the pt Need Aspirin: No Condition: Stable Instructions: Acute Kidney Injury, Adult, Hypotension, [id number], Dehydrat ion, Adult, [id number] Additional Instructions: Please stop taking the water pill. The brand name is Maxide. The generic name is triamterene hydrochlorothiazide. Referrals: PRIMARY CARE, [Primary Care Provider] - 3-5 Days
--- NOTE | 2021-05-16 08:10 | Cat Scan Report ---
CT ABDOMEN AND PELVIS WITHOUT CONTRAST INDICATION / CLINICAL INFORMATION: Pt complains of diarrhea, hypotension. TECHNIQUE: Axial CT images were obtained through the abdomen and pelvis without IV contrast. All CT scans at [facility] location are performed using CT dose reduction for ALARA by means of automated exposure control. COMPARISON: 12/27/2019 FINDINGS: LOWER CHEST: No significant abnormality. LIVER: No significant abnormality. GALLBLADDER: No significant abnormality. BILE DUCTS: No significant abnormality. PANCREAS: No significant abnormality. SPLEEN: No significant abnormality. ADRENALS: No significant abnormality. RIGHT KIDNEY and URETER: No significant abnormality. LEFT KIDNEY and URETER: No significant abnormality. No change in the cystlike lesion within the upper pole the left kidney. STOMACH and SMALL BOWEL: No significant abnormality. COLON: No significant abnormality. Sigmoid diverticulosis APPENDIX: No significant abnormality. PERITONEUM: No free fluid. No free air. No fluid collection. LYMPH NODES: No significant adenopathy. AORTA and ARTERIES: Atherosclerotic disease.. IVC and VEINS: No significant abnormality. URINARY BLADDER: No significant abnormality. REPRODUCTIVE ORGANS: No significant abnormality. ADDITIONAL FINDINGS: None. SKELETAL SYSTEM: No significant abnormality. IMPRESSION: Sigmoid diverticulosis without diverticulitis Signer Name: Jones Chavez MD Signed: 05/16/2021 8:06 AM Workstation Name: [id number]
[2021-05-16 08:13] LABS: Basophils % (Auto) 0.5 % (0.0-1.8); Eosinophils % (Auto) 0.5 % (0.0-4.3); Hematocrit 36.3 % (30.3-42.9); Hemoglobin 12.7 gm/dl (10.1-14.3); Lymphocytes # (Auto) 1.5 K/mm3 (1.2-5.4); Lymphocytes % (Auto) 21.5 % (13.4-35.0); Mean Corpuscular HGB Conc 35 % (30-34); Mean Corpuscular Volume 96 fl (79-97); Monocytes # (Auto) 0.5 K/mm3 (0.0-0.8); Monocytes % (Auto) 7.8 % (0.0-7.3); Platelet Count 200 K/mm3 (140-440); Red Blood Count 3.77 M/mm3 (3.65-5.03); Red Cell Distribution Width 15.6 % (13.2-15.2)
--- NOTE | 2021-05-16 08:13 | Cat Scan Report ---
CT head without contrast INDICATION : Weakness headache TECHNIQUE: Axial imaging performed from the skull apex through the skull base without the use of con trast. All CT examinations performed at this facility utilize dose modulation, iterative reconstruct ion or weight-based dosing, when appropriate, to reduce radiation dose to as low as reasonably achiev able. COMPARISON: None FINDINGS: No acute intracranial hemorrhage or parenchymal abnormality. Ventricles are normal in si ze and appear symmetric. Soft tissues including the orbits appear normal. No acute osseous abnorm ality. Sinuses and mastoid air cells are clear. IMPRESSION: No acute abnormality. Signer Name: Jones Chavez MD Signed: 05/16/2021 8:09 AM Workstation Name: [id number]
[2021-05-16 08:23] LABS: INR 1.01 (0.87-1.13)
[2021-05-16 09:19] LABS: BUN/Creatinine Ratio 12; Blood Urea Nitrogen 26 mg/dL (7-17); Calcium 8.6 mg/dL (8.4-10.2); Hemolysis Index 8
[2021-05-16 12:13] VITALS: BP 141/60
--- NOTE | 2021-05-19 09:11 | Electrocardiograph Report ---
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
== END 2021-05-16 12:14 | disposition home or self-care (01) ==
LOC: ED 06:57
DX: N17.9 Acute kidney failure, unspecified (principal); E86.0 Dehydration; I95.89 Other hypotension; I10 Essential (primary) hypertension; R10.9 Unspecified abdominal pain; K21.9 Gastro-esophageal reflux disease without esophagitis; F32.9 Major depressive disorder, single episode, unspecified; Z90.710 Acquired absence of both cervix and uterus; Z87.891 Personal history of nicotine dependence; Z79.899 Other long term (current) drug therapy; Z88.8 Allergy status to other drugs, medicaments and biological substances
CPT/HCPCS: 36415; 70450; 74176; 80048; 82962; 84484; 85025; 85610; 85670; 85730; 93005; 96360; 96361; 99284; J7030

== ENCOUNTER 2021-07-21 13:41 | Inpatient (IN) | payer MEDICARE ==
--- NOTE | 2021-07-21 17:41 | Event Note ---
ED Screening Note Date of service: 07/21/21 Time: 17:32 ED Screening Note: 61-year-old female patient presents to the emergency department with complaints of "drowsiness and dizziness" resulting in subsequent right ankle injury. Patient states she was "too weak to get up off the floor." Patient accidentally injured her ankle while her attempted to help her stand. No resulting head injury or loss of consciousness. General: Awake, appropriately interactive, no acute distress. Neck: Supple. Full range of motion intact. Cardiovascular: Normal peripheral perfusion. Pulmonary: No respiratory distress. Patient is speaking normally without use of accessory muscles. Skin: No apparent rashes or lesions. Neurological: No facial asymmetry. Speech is clear. Follows commands. Patient is alert and oriented. Musculoskeletal: Right ankle tenderness. Psych: Cooperative. Appropriate mood and affect. I have greeted and performed a focused rapid initial assessment of this patient. A comprehensive ED assessment and evaluation of the patient, analysis of all test results, and completion of the medical decision-making process will be conducted by additional ED providers. This initial assessment/diagnostic orders/clinical plan/treatment(s) is/are subject to change based on patients health status, clinical progression and re-assessment. Further treatment and workup at subsequent clinical provider's discretion. Patient/guardian urged not to elope from the ED as their condition may be serious if not clinically assessed and managed.
[2021-07-21 17:59] LABS: Basophils % (Auto) 0.5 % (0.0-1.8); Eosinophils % (Auto) 0.6 % (0.0-4.3); Hematocrit 39.1 % (30.3-42.9); Lymphocytes % (Auto) 21.2 % (13.4-35.0); Mean Corpuscular HGB Conc 33 % (30-34); Mean Corpuscular Volume 105 fl (79-97); Monocytes # (Auto) 0.5 K/mm3 (0.0-0.8); Monocytes % (Auto) 11.3 % (0.0-7.3); Platelet Count 140 K/mm3 (140-440); Red Blood Count 3.73 M/mm3 (3.65-5.03); Red Cell Distribution Width 16.4 % (13.2-15.2)
--- NOTE | 2021-07-21 18:00 | XRay Report ---
RIGHT ANKLE 3 VIEW(S) INDICATION / CLINICAL INFORMATION: trauma COMPARISON: None available. FINDINGS: BONES / JOINT(S): There is an obliquely oriented fracture of the distal fibula involving the distal t ibia fibular joint and extending superiorly. There is a fracture of the medial malleolus which is mil dly comminuted. No dislocation is seen. SOFT TISSUES: There is soft tissue swelling. Vascular calcifications are noted ADDITIONAL FINDINGS: None. IMPRESSION: 1. There is a bimalleolar fracture. Signer Name: Yevgeniy Li MD Signed: 07/21/2021 5:55 PM Workstation Name: [id number]
[2021-07-21 18:02] LABS: Albumin 4.4 g/dL (3.9-5); Calcium 9.3 mg/dL (8.4-10.2)
[2021-07-21] MEDS ORDERED: ASPIRIN 325 MG TAB PO ONE (18:13)
--- NOTE | 2021-07-21 18:15 | Emergency Department Report ---
ED General Adult HPI - General Chief complaint: Weakness Stated complaint: FELL ANKLE SWOLLEN/PAIN Time Seen by Provider: 07/21/21 16:30 Source: patient Mode of arrival: Wheelchair Limitations: No Limitations - History of Present Illness Initial comments: Patient presents primarily because of ankle pain. She had actually been lying on the ground because she was dizzy. She reported having chest pain. She had injured her ankle when she went to the ground. Patient states that she just needs her ankle wrapped so she can go home. She then later admits that she has been having chest pain but was not currently having chest pain. She states that she does feel weak. She states that she felt dizzy. There have been no recent illnesses or complaints otherwise. She has had no cough or congestion. Patient denies nausea or vomiting. She has had no palpitations. Pain in the ankle is constant and aching. It is worse with any kind of movement. She describes the chest pain as precordial and tight. - Related Data Home Medications Medication Instructions Recorded Confirmed Last Taken Albuterol Sulfate [Proventil Hfa] 2 puff IH Q4H PRN 01/18/20 01/18/20 Unknown AtorvaSTATin [Lipitor] 20 mg PO QHS 01/18/20 01/21/20 01/20/20 21:00 Dicyclomine [Bentyl] 20 mg PO DAILY 01/18/20 01/21/20 01/20/20 09:00 Potassium Chloride [K-Dur] 20 meq PO QDAY 01/18/20 01/21/20 01/20/20 09:00 buPROPion XL [Wellbutrin XL] 300 mg PO QDAY 01/18/20 01/21/20 01/20/20 09:00 raNITIdine HCl [Zantac] 150 mg PO BID 01/18/20 01/21/20 01/20/20 18:00 Previous Rx's Medication Instructions Recorded Last Taken Type Pantoprazole [Protonix TAB] 40 mg PO QDAY #30 tablet 11/21/14 01/20/20 09:00 Rx Triamter/Hctz 75-50 mg (Nf) 1 tab PO QDAY #30 tablet 02/28/16 01/20/20 09:00 Rx [Maxzide 75-50 mg] Quetiapine Fumarate [SEROquel] 2 tab PO QHS #60 11/04/19 01/20/20 21:00 Rx Trazodone HCl [traZODone] 300 mg PO QHS #30 tab 11/04/19 01/20/20 21:00 Rx Venlafaxine Xr [Effexor XR] 2 tab PO QDAY #60 capsule 11/04/19 01/20/20 09:00 Rx amLODIPine 5 mg PO QDAY #30 tablet 11/04/19 01/21/20 04:35 Rx AtorvaSTATin [Lipitor] 20 mg PO QHS tablet 01/23/20 Unknown Rx Clopidogrel [Plavix] 75 mg PO QDAY #90 tablet 01/23/20 Unknown Rx Dicyclomine [Bentyl] 20 mg PO QID tablet 01/23/20 Unknown Rx HYDROcodone/APAP 7.5-325 [[place] 1 each PO Q6HR PRN #40 tablet 01/23/20 Unknown Rx 7.5/325] amLODIPine 5 mg PO QDAY tablet 01/23/20 Unknown Rx buPROPion XL [Wellbutrin XL] 300 mg PO QDAY tablet 01/23/20 Unknown Rx carvediloL [Coreg] 12.5 mg PO BID tablet 01/23/20 Unknown Rx Allergies Allergy/AdvReac Type Severity Reaction Status Date / Time lisinopril Allergy Angioedema Verified 01/07/20 17:26 ED Review of Systems ROS: Stated complaint: FELL ANKLE SWOLLEN/PAIN Other details as noted in HPI Comment: All other systems reviewed and negative Constitutional: denies: fever Eyes: denies: eye pain ENT: denies: throat pain Respiratory: denies: cough Cardiovascular: as per HPI Endocrine: denies: unexplained weight loss Gastrointestinal: denies: abdominal pain Genitourinary: denies: dysuria Musculoskeletal: denies: back pain Skin: denies: rash Neurological: denies: headache Hematological/Lymphatic: denies: easy bruising ED Past Medical Hx - Past Medical History Previous Medical History?: Yes Hx Hypertension: Yes Hx CVA: Yes (TIA) Hx Heart Attack/AMI: No Hx Congestive Heart Failure: No Hx Diabetes: No Hx Deep Vein Thrombosis: No Hx Pulmonary Embolism: No Hx GERD: Yes Hx Liver Disease: Yes (hepatitis C) Hx Renal Disease: No Hx Sickle Cell Disease: No Hx Arthritis: No Hx Headaches / Migraines: No Hx Seizures: No Hx Kidney Stones: No Hx Psychiatric Treatment: Yes (depression) Hx Asthma: No Hx COPD: No Hx Tuberculosis: No Hx Dementia: No Hx HIV: No - Surgical History Past Surgical History?: Yes Additional Surgical History: hysterectomy--CEA - Family History Family history: hypertension - Social History Smoking Status: Former Smoker Substance Use Type: None - Medications Home Medications: Home Medications Medication Instructions Recorded Confirmed Last Taken Type Pantoprazole [Protonix TAB] 40 mg PO QDAY #30 tablet 11/21/14 01/21/20 01/20/20 09:00 Rx Triamter/Hctz 75-50 mg (Nf) 1 tab PO QDAY #30 tablet 02/28/16 01/21/20 01/20/20 09:00 Rx [Maxzide 75-50 mg] Quetiapine Fumarate [SEROquel] 2 tab PO QHS #60 11/04/19 01/21/20 01/20/20 21:00 Rx Trazodone HCl [traZODone] 300 mg PO QHS #30 tab 11/04/19 01/21/20 01/20/20 21:00 Rx Venlafaxine Xr [Effexor XR] 2 tab PO QDAY #60 capsule 11/04/19 01/21/20 01/20/20 09:00 Rx amLODIPine 5 mg PO QDAY #30 tablet 11/04/19 01/21/20 01/21/20 04:35 Rx Albuterol Sulfate [Proventil Hfa] 2 puff IH Q4H PRN 01/18/20 01/18/20 Unknown History AtorvaSTATin [Lipitor] 20 mg PO QHS 01/18/20 01/21/20 01/20/20 21:00 History Dicyclomine [Bentyl] 20 mg PO DAILY 01/18/20 01/21/20 01/20/20 09:00 History Potassium Chloride [K-Dur] 20 meq PO QDAY 01/18/20 01/21/20 01/20/20 09:00 History buPROPion XL [Wellbutrin XL] 300 mg PO QDAY 01/18/20 01/21/20 01/20/20 09:00 History raNITIdine HCl [Zantac] 150 mg PO BID 01/18/20 01/21/20 01/20/20 18:00 History AtorvaSTATin [Lipitor] 20 mg PO QHS tablet 01/23/20 Unknown Rx Clopidogrel [Plavix] 75 mg PO QDAY #90 tablet 01/23/20 Unknown Rx Dicyclomine [Bentyl] 20 mg PO QID tablet 01/23/20 Unknown Rx HYDROcodone/APAP 7.5-325 [[place] 1 each PO Q6HR PRN #40 tablet 01/23/20 Unknown Rx 7.5/325] amLODIPine 5 mg PO QDAY tablet 01/23/20 Unknown Rx buPROPion XL [Wellbutrin XL] 300 mg PO QDAY tablet 01/23/20 Unknown Rx carvediloL [Coreg] 12.5 mg PO BID tablet 01/23/20 Unknown Rx ED Physical Exam - General Limitations: No Limitations, Other ( Pulse ox was noted to normal at 100%.) General appearance: alert, in no apparent distress - Head Head exam: Present: atraumatic, normocephalic, normal inspection - Eye Eye exam: Present: normal appearance, EOMI. Absent: scleral icterus - ENT ENT exam: Present: normal exam, normal orophraynx - Neck Neck exam: Present: normal inspection, full ROM. Absent: tenderness - Respiratory Respiratory exam: Present: normal lung sounds bilaterally. Absent: respiratory distress - Cardiovascular Cardiovascular Exam: Present: regular rate, normal rhythm - GI/Abdominal GI/Abdominal exam: Present: soft. Absent: tenderness - Extremities Exam Extremities exam: Present: normal capillary refill, other ( Tenderness and edema involving the right ankle that is slightly deformed and consistent with ankle fracture. Pulses are equal and symmetric. Cap refill is brisk. Sensation is intact.) - Back Exam Back exam: Absent: CVA tenderness (R), CVA tenderness (L) - Neurological Exam Neurological exam: Present: alert, oriented X3, reflexes normal. Absent: motor sensory deficit - Psychiatric Psychiatric exam: Present: normal affect, normal mood, other ( Patient is a poor historian.) - Skin Skin exam: Present: warm, dry ED Course Vital Signs 07/21/21 16:14 Temperature 98.3 F Pulse Rate 66 Respiratory 18 Rate Blood Pressure 128/56 O2 Sat by Pulse 100 Oximetry - Reevaluation(s) Reevaluation #1: 07/21/21 19:08 Patient had been seen based on [facility] protocol. I evaluated the patient once her work-up is complete. She is comfortable with admission. I discussed this with her. Aspirin was given. We will place her in a splint. This was ordered. Patient can be admitted for ongoing treatment and evaluation. She will undergo serial troponins. - Orthopedic Splinting/Casting Injury #1 Side: right Lower Extremity Injury Location: ankle Lower Extremity Immobilizer: posterior splint, stirrup splint Additional Comments: This was placed by the nursing staff with direct supervision. After this point was applied, patient had brisk capillary refill and normal sensation. ED Medical Decision Making - Lab Data Result diagrams: 07/21/21 17:23 07/21/21 17:23 - Medical Decision Making Patient presented secondary to weakness and an ankle injury. She ultimately tried to downplay her weakness and generalized malaise. She was found to have an elevated troponin and did admit to having episodes of chest pain. There is no evidence of STEMI based on her current presentation. She does not have a pulse deficit there would suggest aortic dissection. She has no pleuritic component of this chest pain to suggest pulmonary embolism. In addition, she has a bimalleolar fracture. This can be managed by orthopedics. I do not expect emergent surgery. Critical Care Time: No Critical care attestation.: If time is entered above; I have spent that time in minutes in the direct care of this critically ill patient, excluding procedure time. ED Disposition Clinical Impression: Elevated troponin Fall Qualifiers: Encounter type: initial encounter Qualified Code(s): W19.XXXA - Unspecified fall, initial encounter Bimalleolar fracture of right ankle Qualifiers: Encounter type: initial encounter Fracture type: closed Qualified Code(s): S82.841A - Displaced bimalleolar fracture of right lower leg, initial encounter for closed fracture Disposition: ADMITTED INPATIENT Is pt being admited?: Yes Does the pt Need Aspirin: No Condition: Stable
[2021-07-21 18:24] LABS: Chol/HDL Ratio 2.18 %
[2021-07-22] MEDS: MORPHINE 2 MG/1 ML INJ IV PRN ×2 (04:07→21:58)
[2021-07-22] MEDS ORDERED: METOCLOPRAMIDE 10 MG/2 ML INJ IV PRN (06:50)
[2021-07-22] MEDS ORDERED: ONDANSETRON 4 MG/2 ML INJ IV PRN (06:50)
--- NOTE | 2021-07-22 06:50 | History and Physical Report ---
History of Present Illness Date of examination: 07/21/21 Date of admission: 07/21/21 19:10 Chief complaint: Chest pain while in the emergency room around 4 PM History of present illness: 62-year-old female with history of hypertension, hyperlipidemia and psychiatric issues comes in for left ankle sprain. While in the emergency room patient complained of chest pain which is retrosternal and nonradiating. No nausea or vomiting. No diaphoresis. Patient being admitted for chest pain evaluation. Chest pain was intermittent in nature while in the emergency room. - Past Medical History Previous Medical History?: Yes Hx Hypertension: Yes Hx CVA: Yes (TIA) Hx GERD: Yes Hx Liver Disease: Yes (hepatitis C Hx Psychiatric Treatment: Yes (depression) - Surgical History Past Surgical History?: Yes Additional Surgical History: hysterectomy--CEA - Family History Family history: hypertension - Social History Smoking Status: Former Smoker Substance Use Type: None Review of Systems ROS: Stated complaint: FELL ANKLE SWOLLEN/PAIN Other details as noted in HPI Comment: All other systems reviewed and negative Constitutional: denies: fever Eyes: denies: eye pain ENT: denies: throat pain Respiratory: denies: cough Cardiovascular: as per HPI Endocrine: denies: unexplained weight loss Gastrointestinal: denies: abdominal pain Genitourinary: denies: dysuria Musculoskeletal: denies: back pain Skin: denies: rash Neurological: denies: headache Hematological/Lymphatic: denies: easy bruising Medications and Allergies Allergies Allergy/AdvReac Type Severity Reaction Status Date / Time lisinopril Allergy Angioedema Verified 01/07/20 17:26 Home Medications Medication Instructions Recorded Confirmed Last Taken Type Pantoprazole [Protonix TAB] 40 mg PO QDAY #30 tablet 11/21/14 01/21/20 01/20/20 09:00 Rx Triamter/Hctz 75-50 mg (Nf) 1 tab PO QDAY #30 tablet 02/28/16 01/21/20 01/20/20 09:00 Rx [Maxzide 75-50 mg] Quetiapine Fumarate [SEROquel] 2 tab PO QHS #60 11/04/19 01/21/20 01/20/20 21:00 Rx Trazodone HCl [traZODone] 300 mg PO QHS #30 tab 11/04/19 01/21/20 01/20/20 21:00 Rx Venlafaxine Xr [Effexor XR] 2 tab PO QDAY #60 capsule 11/04/19 01/21/20 01/20/20 09:00 Rx amLODIPine 5 mg PO QDAY #30 tablet 11/04/19 01/21/20 01/21/20 04:35 Rx Albuterol Sulfate [Proventil Hfa] 2 puff IH Q4H PRN 01/18/20 01/18/20 Unknown History AtorvaSTATin [Lipitor] 20 mg PO QHS 01/18/20 01/21/20 01/20/20 21:00 History Dicyclomine [Bentyl] 20 mg PO DAILY 01/18/20 01/21/20 01/20/20 09:00 History Potassium Chloride [K-Dur] 20 meq PO QDAY 01/18/20 01/21/20 01/20/20 09:00 History buPROPion XL [Wellbutrin XL] 300 mg PO QDAY 01/18/20 01/21/20 01/20/20 09:00 History raNITIdine HCl [Zantac] 150 mg PO BID 01/18/20 01/21/20 01/20/20 18:00 History AtorvaSTATin [Lipitor] 20 mg PO QHS tablet 01/23/20 Unknown Rx Clopidogrel [Plavix] 75 mg PO QDAY #90 tablet 01/23/20 Unknown Rx Dicyclomine [Bentyl] 20 mg PO QID tablet 01/23/20 Unknown Rx HYDROcodone/APAP 7.5-325 [[place] 1 each PO Q6HR PRN #40 tablet 01/23/20 Unknown Rx 7.5/325] amLODIPine 5 mg PO QDAY tablet 01/23/20 Unknown Rx buPROPion XL [Wellbutrin XL] 300 mg PO QDAY tablet 01/23/20 Unknown Rx carvediloL [Coreg] 12.5 mg PO BID tablet 01/23/20 Unknown Rx Active Meds: Active Medications Morphine Sulfate (Morphine 2 Mg/1 Ml Inj) 2 mg IV Q4H PRN PRN Reason: Pain, Moderate (4-6) Last Admin: 07/22/21 04:07 Dose: 2 mg Documented by: Exam - Constitutional Vitals: Temp Pulse Resp BP Pulse Ox 97.8 F 78 18 148/74 91 07/22/21 04:21 07/22/21 05:58 07/22/21 04:21 07/22/21 04:21 07/22/21 04:21 General appearance: Present: no acute distress, well-nourished - EENT Eyes: Present: PERRL ENT: hearing intact, clear oral mucosa - Neck Neck: Present: supple, normal ROM - Respiratory Respiratory effort: normal Respiratory: bilateral: CTA - Cardiovascular Heart Sounds: Present: S1 & S2. Absent: rub, click - Extremities Extremities: pulses symmetrical, No edema Peripheral Pulses: within normal limits - Abdominal General gastrointestinal: Present: soft, non-tender, non-distended, normal bowel sounds Female genitourinary: Present: normal - Integumentary Integumentary: Present: clear, warm, dry - Musculoskeletal Musculoskeletal: gait normal, strength equal bilaterally - Psychiatric Psychiatric: appropriate mood/affect, intact judgment & insight - Neurologic Neurologic: CNII-XII intact, moves all extremities HEART Score - HEART Score History: Moderately suspicious Risk factors: 1-2 risk factors Troponin: Troponin T 0.041 ng/mL (0.00-0.029) H 07/21/21 17:23 - Critical Actions Critical Actions: 4-6 pts:12-16.6% risk of adverse cardiac event. Should be admitted Results - Labs CBC & Chem 7: 07/21/21 17:23 07/21/21 17:23 Labs: Laboratory Last Values WBC 4.6 K/mm3 (4.5-11.0) 07/21/21 17:23 RBC 3.73 M/mm3 (3.65-5.03) 07/21/21 17:23 Hgb 13.0 gm/dl (10.1-14.3) 07/21/21 17:23 Hct 39.1 % (30.3-42.9) 07/21/21 17:23 MCV 105 fl (79-97) H 07/21/21 17:23 MCH 35 pg (28-32) H 07/21/21 17:23 MCHC 33 % (30-34) 07/21/21 17:23 RDW 16.4 % (13.2-15.2) H 07/21/21 17:23 Plt Count 140 K/mm3 (140-440) 07/21/21 17:23 Lymph % (Auto) 21.2 % (13.4-35.0) 07/21/21 17:23 [place] % (Auto) 11.3 % (0.0-7.3) H 07/21/21 17:23 Eos % (Auto) 0.6 % (0.0-4.3) 07/21/21 17:23 Baso % (Auto) 0.5 % (0.0-1.8) 07/21/21 17:23 Lymph # (Auto) 1.0 K/mm3 (1.2-5.4) L 07/21/21 17:23 [place] # (Auto) 0.5 K/mm3 (0.0-0.8) 07/21/21 17:23 Eos # (Auto) 0.0 K/mm3 (0.0-0.4) 07/21/21 17:23 Baso # (Auto) 0.0 K/mm3 (0.0-0.1) 07/21/21 17:23 Seg Neutrophils % 66.4 % (40.0-70.0) 07/21/21 17:23 Seg Neutrophils # 3.1 K/mm3 (1.8-7.7) 07/21/21 17:23 Sodium 137 mmol/L (137-145) 07/21/21 17:23 Potassium 3.9 mmol/L (3.6-5.0) 07/21/21 17:23 Chloride 101.0 mmol/L (98-107) 07/21/21 17:23 Carbon Dioxide 21 mmol/L (22-30) L 07/21/21 17:23 Anion Gap 19 mmol/L 07/21/21 17:23 BUN 13 mg/dL (7-17) 07/21/21 17:23 Creatinine 1.2 mg/dL (0.6-1.2) 07/21/21 17:23 Estimated GFR 55 ml/min 07/21/21 17:23 BUN/Creatinine Ratio 11 % 07/21/21 17:23 Glucose 133 mg/dL (65-100) H 07/21/21 17:23 Calcium 9.3 mg/dL (8.4-10.2) 07/21/21 17:23 Magnesium 2.00 mg/dL (1.7-2.3) 07/21/21 17:23 Total Bilirubin 0.60 mg/dL (0.1-1.2) 07/21/21 17:23 AST 42 units/L (5-40) H 07/21/21 17:23 ALT 41 units/L (7-56) 07/21/21 17:23 Alkaline Phosphatase 85 units/L (35-129) 07/21/21 17:23 Troponin T 0.041 ng/mL (0.00-0.029) H 07/21/21 17:23 Total Protein 7.5 g/dL (6.3-8.2) 07/21/21 17:23 Albumin 4.4 g/dL (3.9-5) 07/21/21 17:23 Albumin/Globulin Ratio 1.4 % 07/21/21 17:23 Triglycerides 101 mg/dL (2-149) 07/21/21 17:23 Cholesterol 151 mg/dL (50-199) 07/21/21 17:23 LDL Cholesterol Direct 70 mg/dL (50-130) 07/21/21 17:23 HDL Cholesterol 69 mg/dL (40-59) H 07/21/21 17:23 Cholesterol/HDL Ratio 2.18 % 07/21/21 17:23 Short CBC 07/21/21 Range/Units 17:23 WBC 4.6 (4.5-11.0) K/mm3 Hgb 13.0 (10.1-14.3) gm/dl Hct 39.1 (30.3-42.9) % Plt Count 140 (140-440) K/mm3 BMP 07/21/21 17:23 Sodium 137 Potassium 3.9 Chloride 101.0 Carbon Dioxide 21 L BUN 13 Creatinine 1.2 Glucose 133 H Calcium 9.3 Cardiac Enzymes 07/21/21 Range/Units 17:23 Troponin T 0.041 H (0.00-0.029) ng/mL Liver Function 07/21/21 Range/Units 17:23 Total Bilirubin 0.60 (0.1-1.2) mg/dL AST 42 H (5-40) units/L ALT 41 (7-56) units/L Alkaline Phosphatase 85 (35-129) units/L Albumin 4.4 (3.9-5) g/dL - Imaging and Cardiology EKG: report reviewed (EKG-normal sinus rhythm no acute ST-T wave changes) Imaging and Cardiology: Left ankle x-ray bimalleolar fracture White/IV: Voiding Method External Female Catheter Assessment and Plan Advance Directives: Yes (Full code) VTE prophylaxis?: Chemical Plan of care discussed with patient/family: Yes - Patient Problems (1) Acute chest pain Current Visit: Yes Status: Acute Plan to address problem: Chest pain work-up Serial troponins Lexiscan (2) Bimalleolar fracture of right ankle Current Visit: Yes Status: Acute Qualifiers: Encounter type: initial encounter Fracture type: closed Qualified Code (s): S82.841A - Displaced bimalleolar fracture of right lower leg, initial encounter for closed fracture Plan to address problem: Orthopedic consultation with Dr. Guillen Left ankle splinted (3) Hypertension Current Visit: Yes Status: Chronic Qualifiers: Hypertension type: primary hypertension Qualified Code(s): I10 - Essential (primary) hypertension Plan to address problem: Continue amlodipine and adjust medications (4) Hyperlipidemia Current Visit: Yes Status: Chronic Qualifiers: Hyperlipidemia type: mixed hyperlipidemia Qualified Code(s): E78.2 - Mixed hyperlipidemia Plan to address problem: Continue statins (5) GERD (gastroesophageal reflux disease) Current Visit: Yes Status: Chronic Qualifiers: Esophagitis presence: without esophagitis Qualified Code(s): K21.9 - Gastro-esophageal reflux disease without esophagitis Plan to address problem: Continue PPIs (6) Depression Current Visit: Yes Status: Chronic Qualifiers: Depression Type: unspecified Qualified Code(s): F32.9 - Major depressive disorder, single episode, unspecified Plan to address problem: Continue Effexor and Seroquel (7) DVT prophylaxis Current Visit: Yes Status: Acute Plan to address problem: On heparin and GI prophylaxis
[2021-07-22] MEDS: HYDROmorphone 1 MG/1 ML INJ IV PRN ×2 (09:19→12:54)
--- NOTE | 2021-07-22 10:08 | Electrocardiograph Report ---
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
[2021-07-22] MEDS: FAMOTIDINE 20 MG TAB PO SCH ×2 (10:23→21:58)
[2021-07-22] MEDS: ENOXAPARIN 40 MG/0.4 ML INJ SUB-Q SCH (10:24)
--- NOTE | 2021-07-22 15:32 | Consultation ---
History of Present Illness - [facility] Consult date: 07/22/21 Consult reason: fracture History of present illness: 61 y/o female with c/o right ankle pain and swelling after a fall at home, unable to fully weight bear afterwards brought to the ED at [facility] where xrays taken revealed a displaced bimalleolar fracture right ankle, no other c/o noted... Medications and Allergies Allergies Allergy/AdvReac Type Severity Reaction Status Date / Time lisinopril Allergy Angioedema Verified 01/07/20 17:26 Home Medications Medication Instructions Recorded Confirmed Last Taken Type Pantoprazole [Protonix TAB] 40 mg PO QDAY #30 tablet 11/21/14 01/21/20 01/20/20 09:00 Rx Triamter/Hctz 75-50 mg (Nf) 1 tab PO QDAY #30 tablet 02/28/16 01/21/20 01/20/20 09:00 Rx [Maxzide 75-50 mg] Quetiapine Fumarate [SEROquel] 2 tab PO QHS #60 11/04/19 01/21/20 01/20/20 21:00 Rx Trazodone HCl [traZODone] 300 mg PO QHS #30 tab 11/04/19 01/21/20 01/20/20 21:00 Rx Venlafaxine Xr [Effexor XR] 2 tab PO QDAY #60 capsule 11/04/19 01/21/20 01/20/20 09:00 Rx amLODIPine 5 mg PO QDAY #30 tablet 11/04/19 01/21/20 01/21/20 04:35 Rx Albuterol Sulfate [Proventil Hfa] 2 puff IH Q4H PRN 01/18/20 01/18/20 Unknown History AtorvaSTATin [Lipitor] 20 mg PO QHS 01/18/20 01/21/20 01/20/20 21:00 History Dicyclomine [Bentyl] 20 mg PO DAILY 01/18/20 01/21/20 01/20/20 09:00 History Potassium Chloride [K-Dur] 20 meq PO QDAY 01/18/20 01/21/20 01/20/20 09:00 History buPROPion XL [Wellbutrin XL] 300 mg PO QDAY 01/18/20 01/21/20 01/20/20 09:00 History raNITIdine HCl [Zantac] 150 mg PO BID 01/18/20 01/21/20 01/20/20 18:00 History AtorvaSTATin [Lipitor] 20 mg PO QHS tablet 01/23/20 Unknown Rx Clopidogrel [Plavix] 75 mg PO QDAY #90 tablet 01/23/20 Unknown Rx Dicyclomine [Bentyl] 20 mg PO QID tablet 01/23/20 Unknown Rx HYDROcodone/APAP 7.5-325 [[place] 1 each PO Q6HR PRN #40 tablet 01/23/20 Unknown Rx 7.5/325] amLODIPine 5 mg PO QDAY tablet 01/23/20 Unknown Rx buPROPion XL [Wellbutrin XL] 300 mg PO QDAY tablet 01/23/20 Unknown Rx carvediloL [Coreg] 12.5 mg PO BID tablet 01/23/20 Unknown Rx Active Meds: Active Medications Acetaminophen (Acetaminophen 325 Mg Tab) 650 mg PO Q4H PRN PRN Reason: Pain MILD(1-3)/Fever >100.5/MORALES Enoxaparin Sodium (Enoxaparin 40 Mg/0.4 Ml Inj) 40 mg SUB-Q QDAY [facility] Last Admin: 07/22/21 10:24 Dose: 40 mg Documented by: Famotidine (Famotidine 20 Mg Tab) 20 mg PO BID [facility] Last Admin: 07/22/21 10:23 Dose: 20 mg Documented by: Hydromorphone HCl (Hydromorphone 1 Mg/1 Ml Inj) 0.5 mg IV Q3H PRN PRN Reason: Pain , Severe (7-10) Last Admin: 07/22/21 12:54 Dose: 0.5 mg Documented by: Metoclopramide HCl (Metoclopramide 10 Mg/2 Ml Inj) 10 mg IV Q6H PRN PRN Reason: Nausea And Vomiting Morphine Sulfate (Morphine 2 Mg/1 Ml Inj) 2 mg IV Q4H PRN PRN Reason: Pain, Moderate (4-6) Last Admin: 07/22/21 04:07 Dose: 2 mg Documented by: Ondansetron HCl (Ondansetron 4 Mg/2 Ml Inj) 4 mg IV Q8H PRN PRN Reason: Nausea And Vomiting Sodium Chloride (Sodium Chloride 0.9% 10 Ml Flush Syringe) 10 ml IV BID [facility] Last Admin: 07/22/21 10:24 Dose: 10 ml Documented by: Sodium Chloride (Sodium Chloride 0.9% 10 Ml Flush Syringe) 10 ml IV PRN PRN PRN Reason: LINE FLUSH Physical Examination - Physical exam Narrative exam: RLE - moderate swelling, skin intact, tender at both sides ankle joint, decreased active ROM, good cap refill Eyes: PERRL ENT: Positive: clear oral mucosa Respiratory effort: normal Respiratory: bilateral: CTA Rhythm: regular Heart Sounds: Positive: S1 & S2 General gastrointestinal: Positive: soft, non-tender, non-distended, normal bowel sounds Integumentary: clear, warm, dry Neurologic: Positive: CNII-XII intact, moves all extremities, gait normal. Negative: focal deficits - Cervical Spine Neck pain: none Tenderness with palpation: none Full ROM: yes ROM: flexion: normal ROM: extension: normal ROM: rotation right: normal ROM: rotation left: normal ROM: lateral flexion right: normal ROM: lateral flexion left: normal - Lumbar Spine Back pain: none Tenderness with palpation: none Appearance: normal Full ROM: yes ROM: flexion: normal ROM: extension: normal ROM: rotation right: normal ROM: rotation left: normal ROM: lateral flexion right: normal ROM: lateral flexion left: normal Assessment and Plan Assessment -displaced by malleolus fracture right ankle Recommendations -patient will require open reduction internal fixation right ankle
[2021-07-22 17:13] LABS: Benzodiazepines Screen,Urine Negative; Cannabinoid Screen,Urine Negative; Cocaine Screen,Urine Negative; Methadone Screen,Urine Negative
[2021-07-22 17:20] LABS: Bacteria,Urine 1+ /HPF (Negative); Bilirubin,Urine NEG (Negative); Blood,Urine NEG (Negative); Color,Urine Yellow (Yellow); Mucus,Urine FEW /HPF; Protein,Urine <15 mg/dL mg/dL (Negative); WBC,Urine < 1.0 /HPF (0.0-6.0)
[2021-07-22 18:16] LABS: Amphetamine Screen,Urine Positive; Opiate Screen,Urine Positive
[2021-07-23] MEDS ORDERED: hydrALAZINE 20 MG/1 ML INJ IV SCH (04:00)
[2021-07-23] MEDS: MORPHINE 2 MG/1 ML INJ IV PRN ×4 (04:08→22:01)
--- NOTE | 2021-07-23 05:33 | Progress Note ---
Assessment and Plan - Patient Problems (1) Acute chest pain Status: Acute Plan to address problem: Chest pain work-up Serial troponins Lexiscan tomorrow (2) Bimalleolar fracture of right ankle Status: Acute Qualifiers: Encounter type: initial encounter Fracture type: closed Qualified Code(s): S82.841A - Displaced bimalleolar fracture of right lower leg, initial encounter for closed fracture Plan to address problem: Orthopedic consultation with Dr. Guillen Right ankle splinted (3) Hypertension Status: Chronic Qualifiers: Hypertension type: primary hypertension Qualified Code(s): I10 - Essential (primary) hypertension Plan to address problem: Continue amlodipine and adjust medications (4) Hyperlipidemia Status: Chronic Qualifiers: Hyperlipidemia type: mixed hyperlipidemia Qualified Code(s): E78.2 - Mixed hyperlipidemia Plan to address problem: Continue statins (5) GERD (gastroesophageal reflux disease) Status: Chronic Qualifiers: Esophagitis presence: without esophagitis Qualified Code(s): K21.9 - Gastro-esophageal reflux disease without esophagitis Plan to address problem: Continue PPIs (6) Depression Status: Chronic Qualifiers: Depression Type: unspecified Qualified Code(s): F32.9 - Major depressive disorder, single episode, unspecified Plan to address problem: Continue Effexor and Seroquel (7) DVT prophylaxis Status: Acute Plan to address problem: On heparin and GI prophylaxis Subjective Date of service: 07/22/21 Principal diagnosis: Chest pain, bimalleolar fracture-right ankle Interval history: Patient admitted for bimalleolar right ankle fracture and also chest pain rule out [place]. Chest pain vazquez patient is doing well. Nuclear stress test to be done tomorrow Objective - Constitutional Vitals: Vital Signs - 12hr 07/22/21 07/22/21 07/23/21 19:30 21:00 00:00 Temperature 98.8 F 98.8 F Pulse Rate 77 78 79 Respiratory 16 16 Rate Blood Pressure 123/63 Blood Pressure 152/62 [Left] O2 Sat by Pulse 75 L 94 Oximetry 07/23/21 07/23/21 07/23/21 01:00 03:41 04:05 Temperature 98.7 F Pulse Rate 87 87 Respiratory 18 Rate Blood Pressure 189/88 189/88 Blood Pressure [Left] O2 Sat by Pulse 94 90 Oximetry General appearance: Present: no acute distress, well-nourished - EENT Eyes: PERRL, EOM intact ENT: hearing intact, clear oral mucosa Ears: bilateral: normal - Neck Neck: supple, normal ROM - Respiratory Respiratory effort: normal Respiratory: bilateral: CTA - Breasts Breasts: normal - Cardiovascular Heart rate: 78 Rhythm: regular Heart Sounds: Present: S1 & S2. Absent: gallop, rub Extremities: pulses intact, No edema, normal color, Full ROM - Gastrointestinal General gastrointestinal: Present: soft, non-tender, non-distended, normal bowel sounds - Genitourinary Female genitourinary: normal - Integumentary Integumentary: clear, warm, dry - Musculoskeletal Musculoskeletal: 1, strength equal bilaterally - Neurologic Neurologic: moves all extremities - Psychiatric Psychiatric: memory intact, appropriate mood/affect, intact judgment & insight - Labs CBC & Chem 7: 07/25/21 05:30 07/23/21 04:39 Labs: Abnormal lab results 07/22/21 07/22/21 Range/Units 09:27 13:09 Troponin T 0.035 H 0.030 H (0.00-0.029) ng/mL HEART Score - HEART Score Risk factors: 1-2 risk factors Troponin: Troponin T 0.030 ng/mL (0.00-0.029) H 07/22/21 13:09 - Critical Actions Critical Actions: 4-6 pts:12-16.6% risk of adverse cardiac event. Should be adm itted
[2021-07-23 06:30] LABS: Basophils % (Auto) 0.4 % (0.0-1.8); Eosinophils % (Auto) 0.8 % (0.0-4.3); Hematocrit 33.5 % (30.3-42.9); Hemoglobin 11.4 gm/dl (10.1-14.3); Lymphocytes # (Auto) 1.2 K/mm3 (1.2-5.4); Lymphocytes % (Auto) 23.1 % (13.4-35.0); Mean Corpuscular HGB Conc 34 % (30-34); Mean Corpuscular Volume 104 fl (79-97); Monocytes # (Auto) 0.7 K/mm3 (0.0-0.8); Monocytes % (Auto) 13.3 % (0.0-7.3); Platelet Count 167 K/mm3 (140-440); Red Blood Count 3.21 M/mm3 (3.65-5.03); Red Cell Distribution Width 16.3 % (13.2-15.2)
[2021-07-23 06:44] LABS: Alanine Aminotransferase 23 units/L (7-56); Albumin 3.6 g/dL (3.9-5); BUN/Creatinine Ratio 14; Blood Urea Nitrogen 11 mg/dL (7-17); Calcium 8.7 mg/dL (8.4-10.2); Hemolysis Index 10
[2021-07-23] MEDS ORDERED: REGADENOSON 0.4 MG/5 ML INJ IV ONE ×2 (08:16→10:49)
[2021-07-23] MEDS ORDERED: NEOMY 40 MG/POLYMYXIN B 200,000 UNITS/ML (GU) AMPULE IR ONE (09:29)
[2021-07-23] MEDS: hydrALAZINE 20 MG/1 ML INJ IV SCH ×3 (13:27→22:02)
[2021-07-23] MEDS: FAMOTIDINE 20 MG TAB PO SCH ×2 (13:40→22:02)
[2021-07-23] MEDS: ENOXAPARIN 40 MG/0.4 ML INJ SUB-Q SCH (13:40)
--- NOTE | 2021-07-23 16:44 | Progress Note ---
Assessment and Plan - Patient Problems (1) Acute chest pain Status: Acute Plan to address problem: Stress test negative Patient had cardiac cath in 2015 which was also negative (2) Bimalleolar fracture of right ankle Status: Acute Qualifiers: Encounter type: initial encounter Fracture type: closed Qualified Code(s): S82.841A - Displaced bimalleolar fracture of right lower leg, initial encounter for closed fracture Plan to address problem: Patient to operating room today for ORIF right ankle (3) Hypertension Status: Chronic Qualifiers: Hypertension type: primary hypertension Qualified Code(s): I10 - Essential (primary) hypertension Plan to address problem: Continue amlodipine and adjust medications (4) Hyperlipidemia Status: Chronic Qualifiers: Hyperlipidemia type: mixed hyperlipidemia Qualified Code(s): E78.2 - Mixed hyperlipidemia Plan to address problem: Continue statins (5) GERD (gastroesophageal reflux disease) Status: Chronic Qualifiers: Esophagitis presence: without esophagitis Qualified Code(s): K21.9 - Gastro-esophageal reflux disease without esophagitis Plan to address problem: Continue PPIs (6) Depression Status: Chronic Qualifiers: Depression Type: unspecified Qualified Code(s): F32.9 - Major depressive disorder, single episode, unspecified Plan to address problem: Continue Effexor and Seroquel (7) DVT prophylaxis Status: Acute Plan to address problem: On heparin and GI prophylaxis Subjective Date of service: 07/23/21 Principal diagnosis: Right bimalleolar fracture, chest pain Interval history: Patient admitted for chest pain and bimalleolar fracture Nuclear stress test EKG findings negative for ischemia clinical findings negative for ischemia nuclear findings negative for ischemia final impression normal rest and stress perfusion scan normal left ventricular systolic function ejection fraction calculated 76% normal study Patient going to surgery for open reduction internal fracture today Objective - Constitutional Vitals: Vital Signs - 12hr 07/23/21 07/23/21 07/23/21 05:00 08:19 08:20 Temperature 99.0 F Pulse Rate 86 88 83 Respiratory 18 Rate Blood Pressure 146/56 O2 Sat by Pulse 86 93 Oximetry 07/23/21 07/23/21 07/23/21 10:58 10:59 11:01 Temperature Pulse Rate Respiratory Rate Blood Pressure 131/58 142/64 163/82 O2 Sat by Pulse Oximetry 07/23/21 07/23/21 11:02 13:23 Temperature 98.5 F Pulse Rate 77 Respiratory 18 Rate Blood Pressure 180/74 145/43 O2 Sat by Pulse 94 Oximetry General appearance: Present: no acute distress, well-nourished - EENT Eyes: PERRL, EOM intact ENT: hearing intact, clear oral mucosa Ears: bilateral: normal - Neck Neck: supple, normal ROM - Respiratory Respiratory effort: normal Respiratory: bilateral: CTA - Breasts Breasts: normal - Cardiovascular Heart rate: 78 Rhythm: regular Heart Sounds: Present: S1 & S2. Absent: gallop, rub Extremities: pulses intact, No edema, normal color, Full ROM - Gastrointestinal General gastrointestinal: Present: soft, non-tender, non-distended, normal bowel sounds - Genitourinary Female genitourinary: normal - Integumentary Integumentary: clear, warm, dry - Musculoskeletal Musculoskeletal: 1, strength equal bilaterally - Neurologic Neurologic: moves all extremities - Psychiatric Psychiatric: memory intact, appropriate mood/affect, intact judgment & insight - Labs CBC & Chem 7: 07/25/21 05:30 07/23/21 04:39 Labs: Abnormal lab results 07/23/21 07/23/21 Range/Units 04:39 04:39 RBC 3.21 L (3.65-5.03) M/mm3 MCV 104 H (79-97) fl MCH 35 H (28-32) pg RDW 16.3 H (13.2-15.2) % [place] % (Auto) 13.3 H (0.0-7.3) % Potassium 3.4 L (3.6-5.0) mmol/L Glucose 111 H (65-100) mg/dL Albumin 3.6 L (3.9-5) g/dL HEART Score - HEART Score Risk factors: 1-2 risk factors Troponin: Troponin T 0.030 ng/mL (0.00-0.029) H 07/22/21 13:09 - Critical Actions Critical Actions: 4-6 pts:12-16.6% risk of adverse cardiac event. Should be admitted
--- NOTE | 2021-07-23 18:01 | Nuclear Medicine Report ---
APPROVED REPORT Exam: Nuclear Stress Test Indication: Chest pain Patient Location: [facility] Room #: 465 Ht: 5 ft 3 in Wt: 168 lbs BSA: 1.80 m2 HR: 83 bpmBP: 169/61 mmHgBMI: 29.75 Stress Test Details Stress Test: Pharmacologic stress testing performed using 0.4 mg of regadenoson per 5 mL given IV over 10 seconds. Reason for pharmacologic stress test: physical limitation. HR Resting HR: 83 bpm Max HR Achieved: 98 bpm Max Heart Rate (APMHR): 158 bpm Target HR (85% APMHR): 134 bpm % of APMHR: 62 Recovery HR: 94 bpm BP Resting BP: 169/61 mmHg Max BP: 180/74 mmHg ECG Resting ECG: Sinus Rhythm Stress ECG: Sinus Rhythm ST Change: None Arrhythmia: None Recovery ECG: Sinus Rhythm Recovery ST Change: None Recovery Arrhythmia: None Clinical Reason for Termination: Completed protocol Stress Symptoms: None Stress ECG Conclusion No chest pain and no ST changes with pharmacologic stress, myocardial perfusion images are pending for final test interpretation. NM EXAM: Myocardial Perfusion REST/STRESS Imaging Protocol: Rest Tc-99m/Stress Tc-99m 1 day Resting Data Rest SPECT myocardial perfusion imaging was performed in supine position 45 minutes following the intravenous injection of 10 mCi of Tc-99m Myoview. Time of rest injection: 0715 Pharmacologic Stress Pharmacologic stress test was performed by injecting Regadenoson 0.4 mg IV push followed by the intravenous injection of 28 mCi of Tc-99m Myoview. Time of stress injection: 1050 Gated Stress SPECT was performed 30 minutes after stress injection. The images were gated to evaluate regional wall motion and calculate left ventricular ejection fraction. Study Quality Study: excellent Lung Uptake: Normal Study Data TID = 0.92. Perfusion Wall Motion The rest and stress images show normal left ventricular wall motion. Nuclear Conclusion ECG Findings: negative for ischemia Clinical Findings: negative for ischemia Nuclear Findings: negative for ischemia Left Ventricular Function: normal Risk Study: low Normal rest and stress perfusion scan, normal left ventricular systolic function, ejection fraction calculated at 76%. Normal study. Conclusion No chest pain and no ST changes with pharmacologic stress, myocardial perfusion images are pending for final test interpretation.
[2021-07-23] MEDS: HYDROmorphone 1 MG/1 ML INJ IV PRN (20:04)
[2021-07-24] MEDS: hydrALAZINE 20 MG/1 ML INJ IV SCH ×4 (04:59→22:06)
[2021-07-24] MEDS: HYDROmorphone 1 MG/1 ML INJ IV PRN ×4 (05:00→16:58)
--- NOTE | 2021-07-24 05:42 | Progress Note ---
Assessment and Plan - Patient Problems (1) Acute chest pain Status: Acute Plan to address problem: Stress test negative (2) Bimalleolar fracture of right ankle Status: Acute Qualifiers: Encounter type: initial encounter Fracture type: closed Qualified Code(s): S82.841A - Displaced bimalleolar fracture of right lower leg, initial encounter for closed fracture Plan to address problem: Patient had ORIF yesterday PT OT (3) Hypertension Status: Chronic Qualifiers: Hypertension type: primary hypertension Qualified Code(s): I10 - Essential (primary) hypertension Plan to address problem: Continue amlodipine and adjust medications (4) Hyperlipidemia Status: Chronic Qualifiers: Hyperlipidemia type: mixed hyperlipidemia Qualified Code(s): E78.2 - Mixed hyperlipidemia Plan to address problem: Continue statins (5) GERD (gastroesophageal reflux disease) Status: Chronic Qualifiers: Esophagitis presence: without esophagitis Qualified Code(s): K21.9 - Gastro-esophageal reflux disease without esophagitis Plan to address problem: Continue PPIs (6) Depression Status: Chronic Qualifiers: Depression Type: unspecified Qualified Code(s): F32.9 - Major depressive disorder, single episode, unspecified Plan to address problem: Continue Effexor and Seroquel (7) DVT prophylaxis Status: Acute Plan to address problem: On heparin and GI prophylaxis Subjective Date of service: 07/24/21 Principal diagnosis: Right bimalleolar fracture, chest pain Interval history: Patient was admitted chest pain and right back bimalleolar fracture Patient had a stress test yesterday and ORIF of the right ankle Postop patient doing well Patient for physical therapy Objective - Constitutional Vitals: Vital Signs - 12hr 07/23/21 07/23/21 07/23/21 19:34 21:00 22:02 Temperature 98.9 F Pulse Rate 86 87 80 Respiratory 18 Rate Blood Pressure 140/62 166/57 O2 Sat by Pulse 90 Oximetry 07/24/21 04:00 Temperature Pulse Rate Respiratory 17 Rate Blood Pressure O2 Sat by Pulse 90 Oximetry General appearance: Present: no acute distress, well-nourished - EENT Eyes: PERRL, EOM intact ENT: hearing intact, clear oral mucosa Ears: bilateral: normal - Neck Neck: supple, normal ROM - Respiratory Respiratory effort: normal Respiratory: bilateral: CTA - Breasts Breasts: normal - Cardiovascular Heart rate: 82 Rhythm: regular Heart Sounds: Present: S1 & S2. Absent: gallop, rub Extremities: pulses intact, No edema, normal color, Full ROM - Gastrointestinal General gastrointestinal: Present: soft, non-tender, non-distended, normal bowel sounds - Genitourinary Female genitourinary: normal - Integumentary Integumentary: clear, warm, dry - Musculoskeletal Musculoskeletal: 1, strength equal bilaterally - Neurologic Neurologic: moves all extremities - Psychiatric Psychiatric: memory intact, appropriate mood/affect, intact judgment & insight - Labs CBC & Chem 7: 07/25/21 05:30 07/23/21 04:39 Labs: Abnormal lab results 07/23/21 07/23/21 Range/Units 04:39 04:39 RBC 3.21 L (3.65-5.03) M/mm3 MCV 104 H (79-97) fl MCH 35 H (28-32) pg RDW 16.3 H (13.2-15.2) % [place] % (Auto) 13.3 H (0.0-7.3) % Potassium 3.4 L (3.6-5.0) mmol/L Glucose 111 H (65-100) mg/dL Albumin 3.6 L (3.9-5) g/dL HEART Score - HEART Score Risk factors: 1-2 risk factors Troponin: Troponin T 0.030 ng/mL (0.00-0.029) H 07/22/21 13:09 - Critical Actions Critical Actions: 4-6 pts:12-16.6% risk of adverse cardiac event. Should be admitted
[2021-07-24] MEDS: ENOXAPARIN 40 MG/0.4 ML INJ SUB-Q SCH (10:47)
[2021-07-24] MEDS: FAMOTIDINE 20 MG TAB PO SCH ×2 (10:48→22:06)
[2021-07-24] MEDS ORDERED: HYDROmorphone 1 MG/1 ML INJ IV PRN ×2 (11:38)
[2021-07-24] MEDS ORDERED: ONDANSETRON 4 MG/2 ML INJ IV PRN (11:38)
[2021-07-24] MEDS ORDERED: fentaNYL 100 MCG/2 ML INJ IV ONE (11:38)
--- NOTE | 2021-07-24 11:40 | Anesthesia Day of Surgery ---
Anesthesia Day of Surgery - Day of Surgery Patient Examined: Yes Patient H&P Reviewed: Yes Patient is NPO: Yes Beta Blockers: Yes
--- NOTE | 2021-07-24 11:44 | Anesthesia Consultation ---
Anesthesia Consult and Med Hx Date of service: 07/24/21 - Airway Anesthetic Teeth Evaluation: Dentures, Edentulous ROM Head & Neck: Adequate Mental/Hyoid Distance: Adequate Mallampati Class: Class II Intubation Access Assessment: Good - Pre-Operative Health Status ASA Pre-Surgery Classification: ASA3 Proposed Anesthetic Plan: General Nerve Block: Pop - Pulmonary Hx Smoking: Yes (quit 10/2019) Hx Asthma: No Hx Respiratory Symptoms: Yes (uses albuterol for "mucus") COPD: No Hx Pneumonia: No - Cardiovascular System Hx Hypertension: Yes Hx Heart Attack/AMI: No (Stress test yesterday-negative. Elevated troponins on admission) Hx Percutaneous Transluminal Coronary Angioplasty (PTCA): No Hx Cardia Arrhythmia: No Hx Peripheral Vascular Disease: Yes (S/P CEA) - Central Nervous System Hx Seizures: No CVA: Yes (no residual weakness) Hx Psychiatric Problems: Yes (anxiety/depression) - Gastrointestinal Hx Gastroesophageal Reflux Disease: Yes - Endocrine Hx Renal Disease: No Hx End Stage Renal Disease: No Hx Liver Disease: Yes (hepatitis C) Hx Insulin Dependent Diabetes: No Hx Non-Insulin Dependent Diabetes: No Hx Thyroid Disease: No - Hematic Hx Sickle Cell Disease: No - Other Systems Hx Cancer: No Hx Obesity: No - Additional Comments Anesthesia Medical History Comments: Nuclear stress test. EKG findings negative for ischemia clinical findings negative for ischemia nuclear findings negative for ischemia final impression normal rest and stress perfusion scan normal left ventricular systolic function ejection fraction calculated 76% normal study
[2021-07-24] MEDS ORDERED: BUPIVACAINE/PF (0.25%) 2.5 MG/ML 30 ML VIAL INFILTRATI ONE (11:57)
[2021-07-24] MEDS ORDERED: BUPIVACAINE/PF (0.5%) 5 MG/1 ML 30 ML VIAL INFILTRATI ONE (11:57)
[2021-07-24] MEDS ORDERED: MIDAZOLAM 2 MG/2 ML INJ IV NR (12:00)
[2021-07-24] MEDS: LACTATED RINGERS 1,000 ML IV SCH ×2 (12:20→22:13)
[2021-07-24] MEDS ORDERED: fentaNYL 100 MCG/2 ML INJ ONE (12:25)
[2021-07-24] MEDS ORDERED: propofoL 200 MG/20 ML VIAL IV ONE (12:25)
[2021-07-24] MEDS ORDERED: LIDOCAINE MPF (2%) 20 MG/1 ML VIAL 5 ML ONE (12:27)
[2021-07-24] MEDS ORDERED: NEOMY 40 MG/POLYMYXIN B 200,000 UNITS/ML (GU) AMPULE IR ONE ×2 (12:28→13:27)
[2021-07-24] MEDS ORDERED: SODIUM CHLORIDE 0.9% IRR 1,500 ML BOTTLE IR ONE (13:27)
[2021-07-24] MEDS ORDERED: ONDANSETRON 4 MG/2 ML INJ ONE (13:34)
[2021-07-24] MEDS ORDERED: dexAMETHasone 20 MG/5 ML VIAL ONE (13:34)
--- NOTE | 2021-07-24 14:43 | Procedure Note ---
Date of procedure: 07/24/21 Pre-op diagnosis: Right Bimalleolar ankle fracture Post-op diagnosis: same Procedure: The patient was brought to the OR and placed on the OR table in supine position following induction and intubation by anesthesia. The right lower extremity was prepped and draped in the usual sterile manner. A timeout procedure was done to identify the patient and the correct operative site. The leg was then exsanguinated followed by inflation of the pneumatic tourniquet to 300 mmHg a lateral incision was made along the distal fibula this was then taken down sharply through skin subcutaneous tissues, the fracture site was identified following manipulation of the fracture fragments a 8 hole semitubular plate was applied and stabilized with screws of various lengths next a midline incision was made over the medial malleolus again this was then taken down sharply through skin and subcu at the fracture site was seen manipulated and reduced a bone-holding clamp was used this was followed by insertion of 2 cannulated screws under C-arm visualization AP and lateral views obtained showed good reduction of the fracture and placement of the hardware next the wounds were copiously irrigated and were closed in a standard routine fashion. The patient tolerated the procedure there were no complications he was sent to postanesthesia recovery in stable condition. Anesthesia: MAC, regional Surgeon: ERIC JURADO (Harmony Ann, 1st assist) Estimated blood loss: 50-100ml Pathology: none Condition: stable Disposition: PACU
--- NOTE | 2021-07-24 15:17 | XRay Report ---
3 fluoroscopic images submitted Indication: Intraoperative localization Impression: 3 images of the right ankle were submitted for documentation purposes with radiology inv olvement. Bimalleolar fixation. Please refer to the operative note for complete details. Fluoroscopic time: 0.1 minutes Signer Name: Mitch Park MD Signed: 07/24/2021 3:13 PM Workstation Name: [id number]
--- NOTE | 2021-07-24 16:38 | Post Anesthesia Evaluation ---
- Post Anesthesia Evaluation Patient Participated: Yes Airway Patent: Yes Stable Respiratory Function: Yes Nausea/Vomiting: No Temp > 96.8F: Yes Pain Manageable: Yes Adequeate Hydration: Yes Anesthesia Complications: No Block Receding Appropriately: Yes Patient on Ventilator: No
[2021-07-24] MEDS: ACETAMINOPHEN 325 MG TAB PO PRN (16:58)
[2021-07-25] MEDS: hydrALAZINE 20 MG/1 ML INJ IV SCH ×3 (04:37→18:12)
[2021-07-25] MEDS: MORPHINE 2 MG/1 ML INJ IV PRN (04:40)
[2021-07-25 06:28] LABS: Hemoglobin 8.9 gm/dl (10.1-14.3)
[2021-07-25] MEDS: HYDROmorphone 1 MG/1 ML INJ IV PRN ×3 (08:17→18:41)
[2021-07-25] MEDS: ENOXAPARIN 40 MG/0.4 ML INJ SUB-Q SCH (10:21)
[2021-07-25] MEDS: FAMOTIDINE 20 MG TAB PO SCH (10:21)
[2021-07-25 16:37] VITALS: BP 100/48
[2021-07-25] MEDS: ACETAMINOPHEN 325 MG TAB PO PRN (18:46)
--- NOTE | 2021-07-25 18:51 | Discharge Summary ---
Providers - Providers Date of Admission: 07/23/21 08:53 Date of discharge: 07/25/21 Attending physician: PATRICK BAEZ 07/22/21 07:12 Consult to Physician [CONS] Routine Comment: Consulting Provider: ERIC JURADO Physician Instructions: Reason For Exam: Bimalleolar fracture 07/24/21 14:37 Physical Therapy Evaluation and Treat [CONS] Routine Comment: Reason For Exam: gait training, NWB right LE Weight bearing status?: Nonwt bearing Assistive devices?: Yes If so list: Walker Primary care physician: WENDI MORRIS Hospitalization Condition: Stable Procedures: Pre-op diagnosis: Right Bimalleolar ankle fracture Post-op diagnosis: same Procedure: The patient was brought to the OR and placed on the OR table in supine position following induction and intubation by anesthesia. The right lower extremity was prepped and draped in the usual sterile manner. A timeout procedure was done to identify the patient and the correct operative site. The leg was then exsanguinated followed by inflation of the pneumatic tourniquet to 300 mmHg a lateral incision was made along the distal fibula this was then taken down sharply through skin subcutaneous tissues, the fracture site was identified following manipulation of the fracture fragments a 8 hole semitubular plate was applied and stabilized with screws of various lengths next a midline incision was made over the medial malleolus again this was then taken down sharply through skin and subcu at the fracture site was seen manipulated and reduced a bone-holding clamp was used this was followed by insertion of 2 cannulated screws under C-arm visualization AP and lateral views obtained showed good reduction of the fracture and placement of the hardware next the wounds were copiously irrigated and were closed in a standard routine fashion. The patient tolerated the procedure there were no complications he was sent to postanesthesia recovery in stable condition. Hospital course: Subjective Date of service: 07/24/21 Principal diagnosis: Right bimalleolar fracture, chest pain Interval history: Patient was admitted chest pain and right back bimalleolar fracture Patient had a stress test yesterday and ORIF of the right ankle Postop patient doing well Patient undergoing physical therapy Able to walk with walker Assessment and Plan - Patient Problems (1) Acute chest pain Status: Acute Plan to address problem: Stress test negative (2) Bimalleolar fracture of right ankle Status: Acute Qualifiers: Encounter type: initial encounter Fracture type: closed Qualified Code(s): S82.841A - Displaced bimalleolar fracture of right lower leg, initial encounter for closed fracture Plan to address problem: Patient had ORIF yesterday PT OT (3) Hypertension Status: Chronic Qualifiers: Hypertension type: primary hypertension Qualified Code(s): I10 - Essential (primary) hypertension Plan to address problem: Continue amlodipine and adjust medications (4) Hyperlipidemia Status: Chronic Qualifiers: Hyperlipidemia type: mixed hyperlipidemia Qualified Code(s): E78.2 - Mixed hyperlipidemia Plan to address problem: Continue statins (5) GERD (gastroesophageal reflux disease) Status: Chronic Qualifiers: Esophagitis presence: without esophagitis Qualified Code(s): K21.9 - Gastro-esophageal reflux disease without esophagitis Plan to address problem: Continue PPIs (6) Depression Status: Chronic Qualifiers: Depression Type: unspecified Qualified Code(s): F32.9 - Major depressive disorder, single episode, unspecified Plan to address problem: Continue Effexor and Seroquel (7) DVT prophylaxis Status: Acute Plan to address problem: On heparin and GI prophylaxis Disposition: 01 HOME / SELF CARE / HOMELESS Final Discharge Diagnosis (Prints w/discharge instructions): Rt Bimalleolar fracture. ACS. Htn. Hld. Gerd Time spent for discharge: 35 minutes - Discharge Diagnoses (1) Acute chest pain Status: Acute (2) Bimalleolar fracture of right ankle Status: Acute Qualifiers: Encounter type: initial encounter Fracture type: closed Qualified Code(s): S82.841A - Displaced bimalleolar fracture of right lower leg, initial encounter for closed fracture (3) Hypertension Status: Chronic Qualifiers: Hypertension type: primary hypertension Qualified Code(s): I10 - Essential (primary) hypertension (4) Hyperlipidemia Status: Chronic Qualifiers: Hyperlipidemia type: mixed hyperlipidemia Qualified Code(s): E78.2 - Mixed hyperlipidemia (5) GERD (gastroesophageal reflux disease) Status: Chronic Qualifiers: Esophagitis presence: without esophagitis Qualified Code(s): K21.9 - Gastro-esophageal reflux disease without esophagitis (6) Depression Status: Chronic Qualifiers: Depression Type: unspecified Qualified Code(s): F32.9 - Major depressive disorder, single episode, unspecified (7) DVT prophylaxis Status: Acute Core Measure Documentation - Palliative Care Palliative Care/ Comfort Measures: Not Applicable - Core Measures Any of the following diagnoses?: none Exam - Constitutional Vitals: Temp Pulse Resp BP Pulse Ox 98.3 F 97 H 20 100/48 81 L 07/25/21 16:05 07/25/21 16:05 07/25/21 16:05 07/25/21 16:05 07/25/21 16:05 General appearance: Present: no acute distress, well-nourished - EENT Eyes: Present: PERRL ENT: hearing intact, clear oral mucosa - Neck Neck: Present: supple, normal ROM - Respiratory Respiratory effort: normal Respiratory: bilateral: CTA - Cardiovascular Heart rate: 78 Rhythm: regular Heart Sounds: Present: S1 & S2. Absent: rub, click - Extremities Extremities: no ischemia, pulses intact, pulses symmetrical, No edema Peripheral Pulses: within normal limits - Abdominal General gastrointestinal: Present: soft, non-tender, non-distended, normal bowel sounds Female genitourinary: Present: normal - Integumentary Integumentary: Present: clear, warm, dry - Musculoskeletal Musculoskeletal: gait normal, strength equal bilaterally - Psychiatric Psychiatric: appropriate mood/affect, intact judgment & insight - Neurologic Neurologic: CNII-XII intact, moves all extremities Plan Activity: no restrictions Weight Bearing Status: Weight Bear as Tolerated Diet: regular Follow up with: WENDI MORRIS MD [Primary Care Provider] - 7 Days ERIC JURADO MD [Staff Physician] - 7 Days Prescriptions: Sucralfate [Carafate] 1 gm PO ACHS #120 tablet Venlafaxine Xr [Effexor XR] 150 mg PO QDAY #30 cap HYDROcodone/APAP 7.5-325 [[place] 7.5-325 mg TAB] 1 each PO Q6HR PRN #24 PRN Reason: Pain Pantoprazole [Protonix] 40 mg PO BID #60 tablet
== END 2021-07-25 20:30 | disposition home health service (06) | DRG 493 ==
LOC: ED 13:41 → INTOOBSV 19:10 → 4A 19:10 → OBSVTOIN 07-23 08:53
PROVIDERS: ADMIT Internal Medicine; ATTEND Internal Medicine
PROC: 2W3QX1Z Immobilization of Right Lower Leg using Splint (ICD-10-PCS; 2021-07-23)
PROC: 0QSG04Z Reposition Right Tibia with Internal Fixation Device, Open Approach (ICD-10-PCS; principal; 2021-07-24)
DX: S82.841A Displaced bimalleolar fracture of right lower leg, initial encounter for closed fracture (principal); I24.9 Acute ischemic heart disease, unspecified; K21.9 Gastro-esophageal reflux disease without esophagitis; I10 Essential (primary) hypertension; F32.9 Major depressive disorder, single episode, unspecified; Z88.8 Allergy status to other drugs, medicaments and biological substances; Z86.73 Personal history of transient ischemic attack (TIA), and cerebral infarction without residual deficits; Z87.891 Personal history of nicotine dependence; Z90.49 Acquired absence of other specified parts of digestive tract; Z82.49 Family history of ischemic heart disease and other diseases of the circulatory system; Z79.899 Other long term (current) drug therapy; W18.30XA Fall on same level, unspecified, initial encounter; Y93.89 Activity, other specified; E78.2 Mixed hyperlipidemia; Y92.009 Unspecified place in unspecified non-institutional (private) residence as the place of occurrence of the external cause; F41.9 Anxiety disorder, unspecified
CPT/HCPCS: 36415; 64450; 78452; 80053; 80061; 80307; 81001; 82962; 83735; 84484; 85014; 85018; 85025; 93005; 93017; G0378; A9502; C1713; C1769; J0360; J1100; J1170; J1650; J2250; J2270; J2405; J2704; J2785; J3010; J7120

== ENCOUNTER 2021-07-28 02:31 | Emergency (ER) | payer MEDICARE ==
--- NOTE | 2021-07-28 02:58 | Emergency Department Report ---
ED CPR HPI - General Stated Complaint: CARDIAC ARREST Time Seen by Provider: 07/28/21 02:47 - History of Present Illness Initial Comments: Patient was brought in by ambulance for cardiac arrest. History is obtained from them and family, after the family arrives. Patient could provide no history. Patient had been seen approximately 1 hour prior to being found by family in cardiac arrest. She had been recently treated and discharged with a broken l eg. She had been using medication for that. Family had checked on her 1 hour prior and then found her in cardiac arrest. She was unresponsive. EMS was called. They administered CPR. They did multiple rounds of epinephrine. Patient had no return of spontaneous circulation. Upon arrival, her downtime was 20+ minutes. They did not witness any visible sign of trauma. She had been intubated. - Related Data Home Medications Medication Instructions Recorded Confirmed Last Taken AtorvaSTATin [Lipitor] 20 mg PO QHS 07/25/21 07/25/21 Unknown Bupropion HCl [Wellbutrin XL] 300 mg PO QAM 07/25/21 07/25/21 Unknown Clopidogrel [Plavix] 75 mg PO QDAY 07/25/21 07/25/21 Unknown Dicyclomine [Bentyl] 20 mg PO QID 07/25/21 07/25/21 Unknown Gabapentin 300 mg PO TID 07/25/21 07/25/21 Unknown Topiramate [Topamax] 50 mg PO BID 07/25/21 07/25/21 Unknown Trazodone HCl [traZODone] 300 mg PO QHS 07/25/21 07/25/21 Unknown Triamter/Hctz 75-50 mg (Nf) 1 tab PO QDAY 07/25/21 07/25/21 Unknown [Maxzide 75-50 mg] amLODIPine 5 mg PO DAILY 07/25/21 07/25/21 Unknown carvediloL [Coreg] 3.125 mg PO BID 07/25/21 07/25/21 Unknown Previous Rx's Medication Instructions Recorded Last Taken Type HYDROcodone/APAP 7.5-325 [Sarah 1 each PO Q6HR PRN #24 07/25/21 Unknown Rx 7.5-325 mg TAB] Pantoprazole [Protonix] 40 mg PO BID #60 tablet 07/25/21 Unknown Rx Sucralfate [Carafate] 1 gm PO ACHS #120 tablet 07/25/21 Unknown Rx Venlafaxine Xr [Effexor XR] 150 mg PO QDAY #30 cap 07/25/21 Unknown Rx Allergies Allergy/AdvReac Type Severity Reaction Status Date / Time lisinopril Allergy Angioedema Verified 01/07/20 17:26 ED Review of Systems ROS: Stated complaint: CARDIAC ARREST Other details as noted in HPI Comment: Unobtainable due to pts medical conditions (Cardiac arrest) ED Past Medical Hx - Past Medical History Hx Hypertension: Yes Hx CVA: Yes (TIA) Hx Heart Attack/AMI: No (Stress test yesterday-negative. Elevated troponins on admission) Hx Congestive Heart Failure: No Hx Diabetes: No Hx Deep Vein Thrombosis: No Hx Pulmonary Embolism: No Hx GERD: Yes Hx Liver Disease: Yes (hepatitis C) Hx Renal Disease: No Hx Sickle Cell Disease: No Hx Arthritis: No Hx Headaches / Migraines: No Hx Seizures: No Hx Kidney Stones: No Hx Psychiatric Treatment: Yes (depression) Hx Asthma: No Hx COPD: No Hx Tuberculosis: No Hx Dementia: No Hx HIV: No Additional medical history: cannot be obtained for the patient secondary to cardiac arrest. - Surgical History Additional Surgical History: hysterectomy--CEA - Family History Family history: other ( Cannot be obtained for the patient secondary to cardiac arrest.) - Social History Smoking Status: Former Smoker Substance Use Type: Other ( Cannot be obtained for the patient secondary to cardiac arrest.) - Medications Home Medications: Home Medications Medication Instructions Recorded Confirmed Last Taken Type AtorvaSTATin [Lipitor] 20 mg PO QHS 07/25/21 07/25/21 Unknown History Bupropion HCl [Wellbutrin XL] 300 mg PO QAM 07/25/21 07/25/21 Unknown History Clopidogrel [Plavix] 75 mg PO QDAY 07/25/21 07/25/21 Unknown History Dicyclomine [Bentyl] 20 mg PO QID 07/25/21 07/25/21 Unknown History Gabapentin 300 mg PO TID 07/25/21 07/25/21 Unknown History HYDROcodone/APAP 7.5-325 [Sarah 1 each PO Q6HR PRN #24 07/25/21 Unknown Rx 7.5-325 mg TAB] Pantoprazole [Protonix] 40 mg PO BID #60 tablet 07/25/21 Unknown Rx Sucralfate [Carafate] 1 gm PO ACHS #120 tablet 07/25/21 Unknown Rx Topiramate [Topamax] 50 mg PO BID 07/25/21 07/25/21 Unknown History Trazodone HCl [traZODone] 300 mg PO QHS 07/25/21 07/25/21 Unknown History Triamter/Hctz 75-50 mg (Nf) 1 tab PO QDAY 07/25/21 07/25/21 Unknown History [Maxzide 75-50 mg] Venlafaxine Xr [Effexor XR] 150 mg PO QDAY #30 cap 07/25/21 Unknown Rx amLODIPine 5 mg PO DAILY 07/25/21 07/25/21 Unknown History carvediloL [Coreg] 3.125 mg PO BID 07/25/21 07/25/21 Unknown History ED Physical Exam - General Limitations: Physical Limitation ( Cardiac arrest and orotracheal intubation.) General appearance: other ( Unresponsive with CPR in progress.) - Head Head exam: Present: atraumatic, normal inspection - Eye Eye exam: Present: other ( Pupils were fixed and dilated. Gaze was conjugate) - ENT ENT exam: Present: normal external ear exam, other ( Orotracheal tube is in place.) - Neck Neck exam: Present: normal inspection, other ( no crepitance. Trachea is midline.) - Respiratory Respiratory exam: Present: normal lung sounds bilaterally ( With bag ventilation) - Cardiovascular Cardiovascular Exam: Present: other ( pulseless) - GI/Abdominal GI/Abdominal exam: Present: soft. Absent: distended - Extremities Exam Extremities exam: Present: other ( IO in place. No obvious deformity.) - Back Exam Back exam: Present: normal inspection - Neurological Exam Neurological exam: Present: other ( Unresponsive. GCS 3 T.) - Psychiatric Psychiatric exam: Present: other ( Unresponsive) - Skin Skin exam: Present: dry ( cool) ED Course - Reevaluation(s) Reevaluation #1: 07/28/21 02:57 Patient was seen upon arrival. CPR was continued. Epinephrine was administered. CPR was continued for 2 more minutes. After that 2-minute cycle, patient had no palpable pulse. Bedside ultrasound showed an agonal rhythm. There was no palpable pulse. Decision was made to pronounce the patient as she had been unresponsive to any type of intervention including multiple doses of epinephrine, D50, resuscitation, and had a downtime of 25 minutes. - Procedure Description Procedures done: Procedure note: Bedside ultrasound. Indication: Cardiac arrest. Patient was supine. Bedside ultrasound was completed to determine any type of cardiac activity. Patient had an agonal rhythm present. There was a beat periodically every 20 to 30 seconds. This was not perfusing. There were no complications. ED Medical Decision Making - EKG Data 07/28/21 04:27 Rhythm strip: Asystole. Monitor observe 10 seconds. - Medical Decision Making Patient was brought in by ambulance for cardiac arrest. She did not have return of spontaneous circulation. Due to numerous resuscitative efforts that were unsuccessful and a prolonged downtime, she was pronounced. Family was notified upon arrival. They were allowed to visit with the patient. Etiology for the cardiac arrest was unknown. Certainly, this is could have been a primary cardiac event, PE, overdose, or some other pathology. CPR time after arrival was 2 minutes. Critical Care Time: Yes Critical care attestation.: If time is entered above; I have spent that time in minutes in the direct care of this critically ill patient, excluding procedure time. CPR time was 2 minutes. Critical care time was 15 minutes exclusive of all procedures and CPR time. ED Disposition Clinical Impression: Cardiac arrest Disposition: 20 Is pt being admited?: No Condition: Stable
== END 2021-07-28 05:04 ==
LOC: ED 02:31
DX: I46.9 Cardiac arrest, cause unspecified (principal); Z88.8 Allergy status to other drugs, medicaments and biological substances; I10 Essential (primary) hypertension; Z90.710 Acquired absence of both cervix and uterus; Z87.891 Personal history of nicotine dependence
CPT/HCPCS: 92950; 99285